=== PATIENT | female | born 1960 | race Caucasian/White ===

== ENCOUNTER → 2016-04-05 | Outpatient (REF) | payer MEDICARE, OTHER ==
[~2016-04-05] MED LIST: /PANT40TA OR; ALLE10TA2 PO; ASPI81TA85 PO; BUSP15TA47 PO; CALTRATE PO; CENTRUM SILVER PO; CRES5TAB OR; FOLI1TAB OR; LOVE0.6I2 SC; METOPROLOL TARTRATE PO; MICA80TA OR; MULTCHW13 PO; OMEG100011 PO; PERC7.5T8 OR; VERAPAMIL PO; VITA100037 PO; WARF5TAB66 PO; WARFARIN PO; ZOCO20TA PO; [UNRECOGNIZED DRUG - OTHER] PO
[2016-04-05 11:12] LABS: MEAN CORPUSCULAR HEMOGLOBIN 30.3 pg (27.0-33.0); MEAN CORPUSCULAR HGB CONC 33.9 g/dl (32.0-36.5); MEAN CORPUSCULAR VOLUME 89.4 fl (80.0-96.0); RED CELL DISTRIBUTION WIDTH 12.1 % (11.5-14.5)
[2016-04-05 11:29] LABS: ALBUMIN 3.7 GM/DL (3.2-5.2); ALBUMIN/GLOBULIN RATIO 1.19 (1.00-1.93); ALKALINE PHOSPHATASE 67 U/L (45-117); ALT/SGPT 30 U/L (12-78); ANION GAP 7 MEQ/L (8-16); AST/SGOT 26 U/L (15-37); BILIRUBIN,TOTAL 0.5 MG/DL (0.2-1.0); BLOOD UREA NITROGEN 26 MG/DL (7-18); CALCIUM LEVEL 9.2 MG/DL (8.5-10.1); CARBON DIOXIDE LEVEL 29 MEQ/L (21-32); CHLORIDE LEVEL 106 MEQ/L (98-107); CHOLESTEROL LEVEL 188 MG/DL (<200); CREATININE FOR GFR 1.01 MG/DL (0.55-1.02); GLOMERULAR FILTRATION RATE > 60.0 (>51); GLUCOSE, FASTING 102 MG/DL (70-105); SODIUM LEVEL 142 MEQ/L (136-145); TOTAL PROTEIN 6.8 GM/DL (6.4-8.2); TRIGLYCERIDES LEVEL 132 MG/DL (<150)
[2016-04-05 11:30] LABS: POTASSIUM SERUM 5.2 MEQ/L (3.5-5.1)
== END ==
LOC: M SFHCLERA 07:38
PROVIDERS: ATTEND Family Medicine
DX: I10 Essential (primary) hypertension (principal)

== ENCOUNTER 2016-08-07 09:59 | Emergency (ER) | payer MEDICARE, OTHER ==
[~2016-08-07] VITALS: Ht 165.1 cm; Wt 102.5 kg
[2016-08-07] MEDS ORDERED: METO-346 (10:20)
[2016-08-07 11:03] LABS: BASO % 0.8 % (0.0-1.0); EOS # 0.2 K/mm3 (0.0-0.50); EOS % 3.1 % (0.0-3.0); LARGE UNSTAINED CELL # 0.1 K/mm3 (0.0-0.4); LARGE UNSTAINED CELL % 1.6 % (0.0-4.0); LYMPH # 1.4 K/mm3 (1.5-4.5); LYMPH % 22.9 % (24.0-44.0); MEAN CORPUSCULAR HEMOGLOBIN 32.4 pg (27.0-33.0); MEAN CORPUSCULAR HGB CONC 35.5 g/dl (32.0-36.5); MEAN CORPUSCULAR VOLUME 91.3 fl (80.0-96.0); MONO # 0.3 K/mm3 (0.0-0.8); MONO % 5.4 % (0.0-5.0); NEUTROPHILS % 66.2 % (36.0-66.0); PLATELET COUNT, AUTOMATED 219 k/mm3 (150-450); RED CELL DISTRIBUTION WIDTH 12.4 % (11.5-14.5)
[2016-08-07 11:13] LABS: INR 3.46
[2016-08-07 11:51] LABS: ALBUMIN 3.5 GM/DL (3.2-5.2); ALKALINE PHOSPHATASE 71 U/L (45-117); ALT/SGPT 47 U/L (12-78); ANION GAP 9 MEQ/L (8-16); AST/SGOT 43 U/L (15-37); BILIRUBIN,DIRECT < 0.1 MG/DL (0.0-0.2); BILIRUBIN,TOTAL 0.5 MG/DL (0.2-1.0); BLOOD UREA NITROGEN 22 MG/DL (7-18); CALCIUM LEVEL 8.9 MG/DL (8.5-10.1); CARBON DIOXIDE LEVEL 26 MEQ/L (21-32); CHLORIDE LEVEL 109 MEQ/L (98-107); CREATININE FOR GFR 1.61 MG/DL (0.55-1.02); GLOMERULAR FILTRATION RATE 35.6 (>51); GLUCOSE, FASTING 102 MG/DL (70-105); POTASSIUM SERUM 4.6 MEQ/L (3.5-5.1); SODIUM LEVEL 144 MEQ/L (136-145)
[2016-08-07 12:01] VITALS: BP 141/88
== END 2016-08-07 12:22 | disposition home or self-care (01) ==
LOC: M ED 10:36
DX: N28.9 Disorder of kidney and ureter, unspecified (principal); I10 Essential (primary) hypertension; F41.9 Anxiety disorder, unspecified; Z86.73 Personal history of transient ischemic attack (TIA), and cerebral infarction without residual deficits; Z79.01 Long term (current) use of anticoagulants

== ENCOUNTER → 2016-08-21 | Outpatient (REF) | payer MEDICARE ==
[~2016-08-21] MED LIST changes: +METO-346; -MULTCHW13 PO; +MULTCHW14 PO; -VITA100037 PO; +VITA100067 PO
[2016-08-21 21:01] LABS: CALCIUM LEVEL 9.4 MG/DL (8.5-10.1); CREATININE FOR GFR 1.2 MG/DL (0.55-1.02); GLOMERULAR FILTRATION RATE 49.8 (>51); POTASSIUM SERUM 4.7 MEQ/L (3.5-5.1)
== END ==
LOC: M SFHCLERA 15:39
PROVIDERS: ATTEND Family Medicine
DX: N17.9 Acute kidney failure, unspecified (principal); Z79.82 Long term (current) use of aspirin; Z79.01 Long term (current) use of anticoagulants; Z79.899 Other long term (current) drug therapy
CPT/HCPCS: 80048; 81001; 87086; G0463

== ENCOUNTER → 2016-08-29 | Outpatient (REF) | payer MEDICARE ==
[2016-08-29 12:03] LABS: CALCIUM LEVEL 9.3 MG/DL (8.5-10.1); CREATININE FOR GFR 1.07 MG/DL (0.55-1.02); GLOMERULAR FILTRATION RATE 56.9 (>51); POTASSIUM SERUM 4.5 MEQ/L (3.5-5.1)
== END ==
LOC: M SFHCLERA 09:12
PROVIDERS: ATTEND Family Medicine
DX: N17.9 Acute kidney failure, unspecified (principal)
CPT/HCPCS: 80048; G0463

== ENCOUNTER → 2016-08-30 | Outpatient (REF) | payer MEDICARE ==
[2016-08-30 11:20] LABS: MEAN CORPUSCULAR HEMOGLOBIN 31.6 pg (27.0-33.0); MEAN CORPUSCULAR HGB CONC 34.9 g/dl (32.0-36.5); MEAN CORPUSCULAR VOLUME 90.4 fl (80.0-96.0); RED CELL DISTRIBUTION WIDTH 12.7 % (11.5-14.5); WHITE BLOOD COUNT 5.4 K/mm3 (4.0-10.0)
== END ==
LOC: M SFHCLERA 08:39
PROVIDERS: ATTEND Family Medicine
DX: N17.9 Acute kidney failure, unspecified (principal)

== ENCOUNTER → 2016-10-12 | Outpatient (CLI) | payer MEDICARE ==
--- NOTE | 2016-10-16 08:13 | REPMRS ---
Patient History The patient states she had a clinical breast exam in 10/2016. No known family history of cancer. Digital Woman Screen Mammo: October 12, 2016 - Exam #: [id number] Bilateral CC and MLO view(s) were taken. Technologist: Lenora Hernandez, Technologist Prior study comparison: November 01, 2014, digital bilateral screening mammo, performed at [facility]. August 11, 2013, digital woman screen mammo performed at [facility]. April 28, 2010, bilateral bilat screen digital mammo performed at [facility]. FINDINGS: There are scattered fibroglandular densities. There has been no change in the appearance of the mammogram from the prior studies. There is a mild amount of scattered fibroglandular density which is fairly symmetric. There is no interval development of dominant mass, architectural distortion, or clustered microcalcification suggestive of malignancy. ASSESSMENT: BI-RADS/ACR category 1 mammogram. Negative. Recommendation Routine screening mammogram in 1 year (for women over age 40). This mammogram was interpreted with the aid of an FDA-approved computer-aided dectection system. Electronically Signed By: Marshal Beltran MD 10/16/16 0812
== END ==
LOC: M WHC 14:12
PROVIDERS: ATTEND Nurse Practitioner Family
DX: Z12.31 Encounter for screening mammogram for malignant neoplasm of breast (principal); Z12.4 Encounter for screening for malignant neoplasm of cervix; Z12.11 Encounter for screening for malignant neoplasm of colon
CPT/HCPCS: 82270; G0101; G0202; G0463

== ENCOUNTER → 2016-10-31 | Outpatient (REF) | payer MEDICARE ==
[2016-10-31 12:26] LABS: CALCIUM LEVEL 9.7 MG/DL (8.5-10.1); CREATININE FOR GFR 1.19 MG/DL (0.55-1.02); GLOMERULAR FILTRATION RATE 50.3 (>51); POTASSIUM SERUM 4.9 MEQ/L (3.5-5.1)
== END ==
LOC: M SFHCLERA 08:52
PROVIDERS: ATTEND Family Medicine
DX: N17.9 Acute kidney failure, unspecified (principal)

== ENCOUNTER → 2017-01-16 | Outpatient (REF) | payer MEDICARE ==
[2017-01-16 16:40] LABS: INR 2.09
[2017-01-16 16:47] LABS: CALCIUM LEVEL 9.4 MG/DL (8.5-10.1); CREATININE FOR GFR 1.13 MG/DL (0.55-1.02); GLOMERULAR FILTRATION RATE 53.4 (>51); POTASSIUM SERUM 4.8 MEQ/L (3.5-5.1)
== END ==
LOC: M SFHCLERA 14:37
PROVIDERS: ATTEND Family Medicine
DX: N18.3 Chronic kidney disease, stage 3 (moderate) (principal); Z86.73 Personal history of transient ischemic attack (TIA), and cerebral infarction without residual deficits
CPT/HCPCS: 80048; 85610; G0463

== ENCOUNTER → 2017-03-06 | Outpatient (REF) | payer MEDICARE | LOC: M SFHCLERA 10:24 | DX: Z51.81 Encounter for therapeutic drug level monitoring (principal); Z79.01 Long term (current) use of anticoagulants; Z95.2 Presence of prosthetic heart valve; Z53.8 Procedure and treatment not carried out for other reasons ==

== ENCOUNTER → 2017-06-17 | Outpatient (REF) | payer MEDICARE ==
[2017-06-17 17:29] LABS: BASO % 0.6 % (0.0-1.0); EOS # 0.2 10^3/uL (0.0-0.50); EOS % 2.7 % (0.0-3.0); HEMATOCRIT 45.1 % (36.0-47.0); HEMOGLOBIN 15.6 g/dl (12.0-15.5); IMMATURE GRANULOCYTE % 0.2 % (0-3.0); LYMPH # 1.7 10^3/uL (1.5-4.5); LYMPH % 26.4 % (24.0-44.0); MEAN CORPUSCULAR HEMOGLOBIN 30.5 pg (27.0-33.0); MEAN CORPUSCULAR HGB CONC 34.6 g/dl (32.0-36.5); MEAN CORPUSCULAR VOLUME 88.1 fl (80.0-96.0); MONO # 0.5 10^3/uL (0.0-0.8); MONO % 7.5 % (0.0-5.0); NEUTROPHILS % 62.6 % (36.0-66.0); PLATELET COUNT, AUTOMATED 188 10^3/uL (150-450); RED BLOOD COUNT 5.12 10^6/uL (4.00-5.40); RED CELL DISTRIBUTION WIDTH 11.9 % (11.5-14.5); WHITE BLOOD COUNT 6.4 10^3/uL (4.0-10.0)
[2017-06-17 17:44] LABS: ESTIMATED AVERAGE GLUCOSE 117 MG/DL (60-110); HEMOGLOBIN A1c 5.7 %
[2017-06-17 17:49] LABS: ALBUMIN 3.8 GM/DL (3.2-5.2); ALBUMIN/GLOBULIN RATIO 1.12 (1.00-1.93); ALKALINE PHOSPHATASE 70 U/L (45-117); ALT/SGPT 40 U/L (12-78); ANION GAP 4 MEQ/L (8-16); AST/SGOT 38 U/L (7-37); BILIRUBIN,TOTAL 0.7 MG/DL (0.2-1.0); BLOOD UREA NITROGEN 21 MG/DL (7-18); CALCIUM LEVEL 9.2 MG/DL (8.5-10.1); CARBON DIOXIDE LEVEL 28 MEQ/L (21-32); CHLORIDE LEVEL 109 MEQ/L (98-107); CHOLESTEROL LEVEL 205 MG/DL (<200); CHOLESTEROL RISK RATIO 4.767 (<5); CREATININE FOR GFR 1.09 MG/DL (0.55-1.30); GLOMERULAR FILTRATION RATE 55.7 (>51); GLUCOSE, FASTING 93 MG/DL (70-100); HDL CHOLESTEROL 43 MG/DL (>40); LDL CHOLESTEROL 124.2 MG/DL (<100); NON-HDL-C 162 MG/DL; POTASSIUM SERUM 4.6 MEQ/L (3.5-5.1); SODIUM LEVEL 141 MEQ/L (136-145); TOTAL PROTEIN 7.2 GM/DL (6.4-8.2); TRIGLYCERIDES LEVEL 189 MG/DL (<150)
[2017-06-17 17:51] LABS: MALB URINE SIEMENS 68.5 MG/L; MAU/CREAT RATIO 62.2 MCG/MG (0.0-30.0)
== END ==
LOC: M SFHCLERA 10:59
DX: I10 Essential (primary) hypertension (principal); Z79.01 Long term (current) use of anticoagulants; Z79.82 Long term (current) use of aspirin; Z79.899 Other long term (current) drug therapy
CPT/HCPCS: 84443

== ENCOUNTER → 2017-11-14 | Outpatient (REF) | payer MEDICARE ==
[2017-11-14 11:45] LABS: INR 2.04; PROTHROMBIN TIME 23.4 SECONDS (12.1-14.4)
== END ==
LOC: M SFHCLERA 08:49
DX: Z79.01 Long term (current) use of anticoagulants (principal)
CPT/HCPCS: 85610

== ENCOUNTER → 2018-01-06 | Outpatient (REF) | payer MEDICARE ==
[2018-01-06 11:52] LABS: INR 2.25; PROTHROMBIN TIME 25.3 SECONDS (12.1-14.4)
== END ==
LOC: M SFHCLERA 08:30
DX: Z51.81 Encounter for therapeutic drug level monitoring (principal); Z79.01 Long term (current) use of anticoagulants
CPT/HCPCS: 85610

== ENCOUNTER → 2018-01-22 | Outpatient (REF) | payer MEDICARE ==
[2018-01-22 11:59] LABS: INR 2.09; PROTHROMBIN TIME 23.9 SECONDS (12.1-14.4)
== END ==
LOC: M SFHCLERA 07:57
DX: Z51.81 Encounter for therapeutic drug level monitoring (principal); Z79.01 Long term (current) use of anticoagulants
CPT/HCPCS: 85610

== ENCOUNTER → 2018-01-27 | Outpatient (REF) | payer MEDICARE ==
[2018-01-27 20:24] LABS: INR 2.15; PROTHROMBIN TIME 24.4 SECONDS (12.1-14.4)
== END ==
LOC: M SFHCLERA 16:26
PROVIDERS: ATTEND Family Medicine
DX: Z51.81 Encounter for therapeutic drug level monitoring (principal); Z79.01 Long term (current) use of anticoagulants

== ENCOUNTER → 2018-03-17 | Outpatient (REF) | payer MEDICARE ==
[2018-03-17 11:55] LABS: INR 2.49; PROTHROMBIN TIME 27.5 SECONDS (12.1-14.4)
== END ==
LOC: M SFHCLERA 08:44
PROVIDERS: ATTEND Family Medicine
DX: Z79.01 Long term (current) use of anticoagulants (principal)

== ENCOUNTER → 2018-03-24 | Outpatient (CLI) | payer MEDICARE ==
[2018-03-24 11:09] LABS: HEMATOCRIT 42.5 % (36.0-47.0); HEMOGLOBIN 14.4 g/dl (12.0-15.5); MEAN CORPUSCULAR HEMOGLOBIN 29.3 pg (27.0-33.0); MEAN CORPUSCULAR HGB CONC 33.9 g/dl (32.0-36.5); MEAN CORPUSCULAR VOLUME 86.6 fl (80.0-96.0); PLATELET COUNT, AUTOMATED 197 10^3/uL (150-450); RED BLOOD COUNT 4.91 10^6/uL (4.00-5.40); WHITE BLOOD COUNT 8.1 10^3/uL (4.0-10.0)
[2018-03-24 11:27] LABS: BLOOD UREA NITROGEN 22 MG/DL (7-18); CALCIUM LEVEL 8.9 MG/DL (8.5-10.1); CARBON DIOXIDE LEVEL 29 MEQ/L (21-32); CHLORIDE LEVEL 107 MEQ/L (98-107); GLOMERULAR FILTRATION RATE > 60.0 (>51); GLUCOSE, FASTING 85 MG/DL (70-100); NT-PRO BNP 371 PG/ML (<125); POTASSIUM SERUM 4.2 MEQ/L (3.5-5.1); SODIUM LEVEL 140 MEQ/L (136-145)
== END ==
LOC: M LAB 09:41
PROVIDERS: ATTEND Internal Medicine Cardiovascular Disease
DX: I10 Essential (primary) hypertension (principal); I05.9 Rheumatic mitral valve disease, unspecified; R06.02 Shortness of breath

== ENCOUNTER → 2018-04-17 | Outpatient (REF) | payer MEDICARE ==
[2018-04-17 17:37] LABS: INR 2.62; PROTHROMBIN TIME 28.6 SECONDS (12.1-14.4)
[2018-04-17 18:01] LABS: HEMOGLOBIN A1c 5.7 %
[2018-04-17 18:02] LABS: ALBUMIN 3.7 GM/DL (3.2-5.2); ALT/SGPT 36 U/L (12-78); BILIRUBIN,TOTAL 0.7 MG/DL (0.2-1.0); BLOOD UREA NITROGEN 22 MG/DL (7-18); CALCIUM LEVEL 8.5 MG/DL (8.5-10.1); CARBON DIOXIDE LEVEL 24 MEQ/L (21-32); CHLORIDE LEVEL 109 MEQ/L (98-107); CHOLESTEROL LEVEL 166 MG/DL (<200); CHOLESTEROL RISK RATIO 3.608 (<5); CREATININE FOR GFR 0.97 MG/DL (0.55-1.30); GLOMERULAR FILTRATION RATE > 60.0 (>51); GLUCOSE, FASTING 70 MG/DL (70-100); HDL CHOLESTEROL 46 MG/DL (>40); LDL CHOLESTEROL 87 MG/DL (<100); NON-HDL-C 120 MG/DL; POTASSIUM SERUM 4.8 MEQ/L (3.5-5.1); SODIUM LEVEL 142 MEQ/L (136-145); TRIGLYCERIDES LEVEL 163 MG/DL (<150)
== END ==
LOC: M SFHCLERA 11:45
PROVIDERS: ATTEND Family Medicine
DX: I10 Essential (primary) hypertension (principal); Z79.01 Long term (current) use of anticoagulants; Z23 Encounter for immunization
CPT/HCPCS: 80053; 80061; 83036; 85610; 90732; G0009; G0463

== ENCOUNTER → 2018-05-26 | Outpatient (REF) | payer MEDICARE ==
[~2018-05-26] MED LIST changes: -/PANT40TA OR; -ALLE10TA2 PO; +LORA-753 PO; +PROT1TAB2 OR
[2018-05-26 11:45] LABS: INR 2.36; PROTHROMBIN TIME 26.3 SECONDS (12.1-14.4)
== END ==
LOC: M SFHCLERA 07:42
PROVIDERS: ATTEND Family Medicine
DX: Z79.01 Long term (current) use of anticoagulants (principal)

== ENCOUNTER → 2018-07-17 | Outpatient (CLI) | payer MEDICARE ==
--- NOTE | 2018-07-17 15:26 | REPMRS ---
Patient History The patient states she had a clinical breast exam in 07/2018. Family history of colorectal cancer at age 50 or over in maternal uncle. 3D TOMOSYNTHESIS WAS PERFORMED. Digital Woman Screen Mammo: July 17, 2018 - Exam #: [id number] Bilateral CC and MLO view(s) were taken. Technologist: Yarely Borges, Technologist Prior study comparison: October 12, 2016, digital woman screen mammo performed at [facility]. November 01, 2014, digital bilateral screening mammo, performed at [facility]. FINDINGS: There are scattered fibroglandular densities. There has been no change in the appearance of the mammogram from the prior studies. There is a mild amount of residual fibroglandular tissue which is fairly symmetric. There is no interval development of dominant mass, architectural distortion, or clustered microcalcification suggestive of malignancy. Assessment: BI-RADS/ACR category 1 mammogram. Negative Mammogram. Recommendation Routine screening mammogram in 1 year (for women over age 40). This mammogram was interpreted with the aid of an FDA-approved computer-aided dectection system. Electronically Signed By: Edward Cruz MD 07/17/18 [id number]
== END ==
LOC: M WHC 13:43
PROVIDERS: ATTEND Family Medicine
DX: Z01.419 Encounter for gynecological examination (general) (routine) without abnormal findings (principal); Z12.31 Encounter for screening mammogram for malignant neoplasm of breast
CPT/HCPCS: 77063; 77067; G0101; G0123

== ENCOUNTER → 2018-07-17 | Outpatient (REF) | payer MEDICARE | LOC: M SFHCWAGY 14:39 | PROVIDERS: ATTEND Nurse Practitioner Family | DX: Z12.72 Encounter for screening for malignant neoplasm of vagina (principal); R87.615 Unsatisfactory cytologic smear of cervix ==

== ENCOUNTER → 2018-08-22 | Outpatient (REF) | payer MEDICARE ==
[2018-08-22 12:46] LABS: INR 2.63
== END ==
LOC: M SFHCLERA 10:28
PROVIDERS: ATTEND Family Medicine
DX: Z79.01 Long term (current) use of anticoagulants (principal)

== ENCOUNTER → 2018-10-08 | Outpatient (REF) | payer MEDICARE ==
[2018-10-08 16:54] LABS: INR 2.41; PROTHROMBIN TIME 26.1 SECONDS (11.8-14.0)
== END ==
LOC: M SFHCLERA 14:33
PROVIDERS: ATTEND Nurse Practitioner Family
DX: Z79.01 Long term (current) use of anticoagulants (principal)

== ENCOUNTER → 2019-01-02 | Outpatient (REF) | payer MEDICARE ==
[2019-01-02 17:08] LABS: INR 3.14; PROTHROMBIN TIME 32.2 SECONDS (11.8-14.0)
== END ==
LOC: M SFHCLERA 16:01
PROVIDERS: ATTEND Family Medicine
DX: Z51.81 Encounter for therapeutic drug level monitoring (principal); Z79.01 Long term (current) use of anticoagulants

== ENCOUNTER → 2019-03-12 | Outpatient (REF) | payer MEDICARE ==
[2019-03-12 12:30] LABS: BASO % 0.7 % (0.0-1.0); EOS # 0.2 10^3/uL (0.0-0.5); EOS % 4.2 % (0.0-3.0); HEMATOCRIT 41.4 % (36.0-47.0); HEMOGLOBIN 13.1 g/dl (12.0-15.5); LYMPH # 1.2 10^3/uL (1.5-5.0); LYMPH % 20.6 % (24.0-44.0); MEAN CORPUSCULAR HEMOGLOBIN 29.4 pg (27.0-33.0); MEAN CORPUSCULAR HGB CONC 31.6 g/dl (32.0-36.5); MONO # 0.4 10^3/uL (0.0-0.8); MONO % 7.4 % (0.0-5.0); NEUTROPHILS # 3.8 10^3/uL (1.5-8.5); NEUTROPHILS % 66.9 % (36.0-66.0); PLATELET COUNT, AUTOMATED 150 10^3/uL (150-450); RED BLOOD COUNT 4.45 10^6/uL (4.00-5.40); WHITE BLOOD COUNT 5.7 10^3/uL (4.0-10.0)
[2019-03-12 12:40] LABS: INR 2.33; PROTHROMBIN TIME 25.3 SECONDS (11.8-14.0)
[2019-03-12 13:02] LABS: CREATININE, URINE 60.3 MG/DL; MALB URINE SIEMENS 28.9 MG/L; MAU/CREAT RATIO 47.9 MCG/MG (0.0-30.0)
[2019-03-12 13:06] LABS: ALBUMIN 3.3 GM/DL (3.2-5.2); BILIRUBIN,TOTAL 0.8 MG/DL (0.2-1.0); CALCIUM LEVEL 8.6 MG/DL (8.5-10.1); CHOLESTEROL RISK RATIO 5.06 (<5); CREATININE FOR GFR 1.21 MG/DL (0.55-1.30); POTASSIUM SERUM 5.3 MEQ/L (3.5-5.1); THYROID STIMULATING HORMONE 4.16 uIU/ML (0.358-3.740); TOTAL PROTEIN 6.4 GM/DL (6.4-8.2)
[2019-03-12 14:05] LABS: HEMOGLOBIN A1c 5.7 %
== END ==
LOC: M SFHCLERA 08:11
PROVIDERS: ATTEND Family Medicine
DX: E78.2 Mixed hyperlipidemia (principal); I10 Essential (primary) hypertension; Z79.01 Long term (current) use of anticoagulants; Z79.899 Other long term (current) drug therapy; Z23 Encounter for immunization
CPT/HCPCS: 80053; 80061; 82043; 83036; 84443; 85025; 85610; 90682; G0008; G0463

== ENCOUNTER → 2019-03-24 | Outpatient (REF) | payer MEDICARE ==
[2019-03-24 20:32] LABS: INR 2.18; PROTHROMBIN TIME 24.1 SECONDS (11.8-14.0)
== END ==
LOC: M SFHCLERA 16:32
PROVIDERS: ATTEND Family Medicine
DX: Z79.01 Long term (current) use of anticoagulants (principal)
CPT/HCPCS: 85610; G0463

== ENCOUNTER → 2019-04-01 | Outpatient (REF) | payer MEDICARE ==
[2019-04-01 16:48] LABS: INR 1.62
[2019-04-01 16:51] LABS: CALCIUM LEVEL 9.2 MG/DL (8.5-10.1); CREATININE FOR GFR 1.04 MG/DL (0.55-1.30); GLOMERULAR FILTRATION RATE 58.4 (>51); POTASSIUM SERUM 4.8 MEQ/L (3.5-5.1); THYROID STIMULATING HORMONE 2.78 uIU/ML (0.358-3.740)
== END ==
LOC: M SFHCLERA 11:38
PROVIDERS: ATTEND Family Medicine
DX: Z79.01 Long term (current) use of anticoagulants (principal); I10 Essential (primary) hypertension

== ENCOUNTER → 2019-04-17 | Outpatient (REF) | payer MEDICARE ==
[2019-04-17 11:38] LABS: INR 1.77; PROTHROMBIN TIME 20.4 SECONDS (11.8-14.0)
== END ==
LOC: M SFHCLERA 07:55
PROVIDERS: ATTEND Family Medicine
DX: Z79.01 Long term (current) use of anticoagulants (principal)

== ENCOUNTER → 2019-05-04 | Outpatient (REF) | payer MEDICARE ==
[2019-05-04 12:04] LABS: INR 3.13; PROTHROMBIN TIME 32.1 SECONDS (11.8-14.0)
== END ==
LOC: M SFHCLERA 08:07
PROVIDERS: ATTEND Family Medicine
DX: Z79.01 Long term (current) use of anticoagulants (principal)

== ENCOUNTER → 2019-06-03 | Outpatient (REF) | payer MEDICARE ==
[2019-06-03 16:18] LABS: INR 4.31; PROTHROMBIN TIME 41.5 SECONDS (11.8-14.0)
== END ==
LOC: M SFHCPLAZ 09:49
PROVIDERS: ATTEND Family Medicine
DX: Z79.01 Long term (current) use of anticoagulants (principal)

== ENCOUNTER → 2019-06-05 | Outpatient (REF) | payer MEDICARE ==
[2019-06-05 11:44] LABS: INR 2.7; PROTHROMBIN TIME 28.5 SECONDS (11.8-14.0)
== END ==
LOC: M SFHCLERA 09:08
PROVIDERS: ATTEND Family Medicine
DX: Z79.01 Long term (current) use of anticoagulants (principal)

== ENCOUNTER 2019-06-11 08:46 | Emergency (ER) | payer MEDICARE ==
[~2019-06-11] VITALS: Ht 165.1 cm; Wt 98.8 kg
[2019-06-11] MEDS ORDERED: CETI5CHW PO (08:58)
[2019-06-11] MEDS ORDERED: METO1TAB87 PO (09:01)
[2019-06-11] MEDS ORDERED: LOSA50TA88 PO (09:01)
[2019-06-11 09:20] LABS: BASO % 0.2 % (0.0-1.0); EOS % 0.3 % (0.0-3.0); HEMATOCRIT 40.2 % (36.0-47.0); HEMOGLOBIN 13.1 g/dl (12.0-15.5); LYMPH # 1.2 10^3/uL (1.5-5.0); LYMPH % 10.4 % (24.0-44.0); MEAN CORPUSCULAR HEMOGLOBIN 28.8 pg (27.0-33.0); MEAN CORPUSCULAR HGB CONC 32.6 g/dl (32.0-36.5); MEAN CORPUSCULAR VOLUME 88.4 fl (80.0-96.0); MONO # 0.9 10^3/uL (0.0-0.8); MONO % 7.9 % (0.0-5.0); NEUTROPHILS # 9.2 10^3/uL (1.5-8.5); NEUTROPHILS % 80.8 % (36.0-66.0); PLATELET COUNT, AUTOMATED 193 10^3/uL (150-450); RED BLOOD COUNT 4.55 10^6/uL (4.00-5.40); WHITE BLOOD COUNT 11.4 10^3/uL (4.0-10.0)
[2019-06-11] MEDS ORDERED: ASPIRIN 81 MG CHEW TABLET PO ONE ×2 (09:30→09:45)
[2019-06-11 09:52] LABS: BLOOD UREA NITROGEN 37 MG/DL (7-18); CALCIUM LEVEL 9.5 MG/DL (8.5-10.1); CARBON DIOXIDE LEVEL 24 MEQ/L (21-32); CHLORIDE LEVEL 105 MEQ/L (98-107); CK-MB VALUE MASS 11.6 NG/ML (<3.6); CPK CREATINE PHOSPHOKINASE 362 U/L (26-192); CREATININE FOR GFR 1.42 MG/DL (0.55-1.30); GLOMERULAR FILTRATION RATE 40.7 (>51); GLUCOSE, FASTING 179 MG/DL (70-100); POTASSIUM SERUM 4.5 MEQ/L (3.5-5.1); SODIUM LEVEL 137 MEQ/L (136-145); TROPONIN I < 0.02 NG/ML (< 0.10)
--- NOTE | 2019-06-11 10:14 | REP ---
PORTABLE CHEST X-RAY: Single view. HISTORY: Syncope/near syncope. COMPARISON STUDY: June 30, 2012. FINDINGS: Monitoring electrodes overlie the chest. The patient is status post cardiac valve replacement. The heart is not felt to be enlarged. Pulmonary vasculature is not increased. Pleural angles are sharp. No significant bony abnormality. IMPRESSION: Status post cardiac valve replacement. Otherwise no active disease. Electronically Signed by Randy Beltran MD 06/11/2019 11:39 A
[2019-06-11] MEDS ORDERED: GI COCKTAIL 50ML BTL(HYOSCYAMINE/MAALOX/LIDOCAINE VISCOUS)(1:3:1) PO ONE (10:30)
[2019-06-11] MEDS ORDERED: WARF-18 PO (10:36)
[2019-06-11 10:43] LABS: INR 2.31; PROTHROMBIN TIME 25.2 SECONDS (11.8-14.0)
[2019-06-11] MEDS ORDERED: NS 1,000 ML IV ONE ×2 (11:00→14:00)
[2019-06-11 13:06] LABS: CK-MB VALUE MASS 15.4 NG/ML (<3.6); CPK CREATINE PHOSPHOKINASE 559 U/L (26-192); MB/CK RELATIVE INDEX 2.75 (< OR =4); TROPONIN I < 0.02 NG/ML (< 0.10)
[2019-06-11] MEDS ORDERED: ACETAMINOPHEN 500 MG TAB PO ONE (14:00)
[2019-06-11] MEDS ORDERED: ISOVUE-370 76% 100ML VIAL As Ordered ONE (14:06)
--- NOTE | 2019-06-11 16:07 | REP ---
CT ANGIOGRAM OF THE CHEST: TECHNIQUE: Axial contrast enhanced images from the thoracic inlet to the upper abdomen using 100 mL Isovue-370 intravenous contrast material with multiplanar reformations. There is no CT evidence of pulmonary embolism. There is no thoracic aortic aneurysm or dissection. The heart is not enlarged. There is no pleural or pericardial effusion. There is no mediastinal, hilar or chest wall lymphadenopathy. No infiltrate is seen in either lung. There is mild scattered interstitial fibrotic change. There is a 3 mm nodular density laterally in the right middle lobe on image 49, a 2 mm nodular density in the right posterior costophrenic sulcus on image 70 and a 2 mm nodular density in the left upper lobe on image 11. These nodular densities are of doubtful significance. There are degenerative changes of the spine. In the upper abdomen, note is made of a large mass in the left kidney superiorly, it measures approximately 8 mm in diameter. This is suspicious for renal cell carcinoma. IMPRESSION: No CT evidence of pulmonary embolism or aortic dissection. No acute infiltrate in the lungs. Three tiny nodular densities seen as discussed above 2-3 mm in diameter, of doubtful significance. In the visualized portions of the upper abdomen, there is a large heterogeneously enhancing mass of the upper pole of the left kidney approximately 8 cm in diameter. This is suspicious for renal cell carcinoma. Electronically Signed by Edward Cruz MD 06/11/2019 07:04 P
[2019-06-11 16:30] VITALS: BP 121/56
--- NOTE | 2019-06-11 17:56 | REP ---
REASON: Followup finding from CT of the chest obtained earlier today, which was performed after the administration of intravenous contrast at 2:30 p.m. No additional intravenous contrast was administered for this exam. No oral bowel preparatory contrast was administered. This decreases the exam sensitivity. For description of the lung bases, see CT chest report obtained earlier today. Limited evaluation of the solid intra-abdominal organs and gallbladder shows no gross abnormalities. Limited evaluation of the pancreas, right adrenal gland, and right kidney shows no gross abnormalities. There is a large left renal mass which measures approximately 8 x 5.8 x 5.9 cm and showing some residual contrast enhancement. There is abnormal perinephric stranding. There is an additional, much smaller left renal mass seen arising from the inferior pole measuring 2.4 cm. This has much higher than water density Hounsfield unit readings and may be enhancing as well. There are small para-aortic lymph nodes. The intra-abdominal and intrapelvic bowel loops and their mesenteries are within normal limits. There is no evidence of free fluid or free air in the abdomen or pelvis. There is no evidence of a pelvic mass or adenopathy. Bone window technique throughout the exam shows spinal degenerative changes. IMPRESSION: Two left renal masses, as described above. There is some left perinephric stranding which might indicate hemorrhage within the solid-appearing mass. Consider further evaluation with pre- and post-gadolinium enhanced MRI for possible vascular extension which is not appreciated on today's exam. Electronically Signed by Angel Frederick DO 06/12/2019 09:25 A
--- NOTE | 2019-06-12 01:50 | ECGEPIP ---
[facility] - ED Test Date: 2019-06-11 Pat Name: RICHARD RANDALL Department: Room: - Gender: Female Shirt Operator: malcolm : 1960 Requested By: SMOOTH MAR Order Number: [id number] Reading MD: Josue Arias Measurements Intervals [place] Rate: 71 P: 51 MN: 169 QRS: -8 QRSD: 132 T: 15 QT: 399 QTc: 434 Interpretive Statements SINUS RHYTHM RIGHT BUNDLE BRANCH BLOCK NONSPECIFIC T WAVE ABNORMALITIES NO PRIORS FOR COMPARISON Electronically Signed on 06-12-2019 1:50:10 EDT by Josue Arias
--- NOTE | 2019-06-12 01:55 | ECGEPIP ---
[facility] - ED Test Date: 2019-06-11 Pat Name: RICHARD RANDALL Department: Room: - Gender: Female [employer]: : 1960 Requested By: SMOOTH MAR Order Number: [id number] Reading MD: Josue Arias Measurements Intervals [place] Rate: 79 P: 47 VA: 168 QRS: -1 QRSD: 132 T: 18 QT: 385 QTc: 442 Interpretive Statements SINUS RHYTHM RIGHT BUNDLE BRANCH BLOCK NONSPECIFIC T WAVE ABNORMALITIES SIMILAR TO PRIOR ON SAME DATE Electronically Signed on 06-12-2019 1:55:06 EDT by Josue Arias
[2019-06-24] MEDS ORDERED: MULT-90 PO (11:03)
[2019-06-24] MEDS ORDERED: COUM1TAB17 PO (11:03)
[2019-06-24] MEDS ORDERED: ACET-683 PO (11:03)
[2019-06-24] MEDS ORDERED: FISH1000 PO (11:03)
[2019-06-24] MEDS ORDERED: ASPI81TA85 PO (11:03)
[2019-06-24] MEDS ORDERED: META28.32 PO (11:08)
== END 2019-06-11 17:13 | disposition home or self-care (01) ==
LOC: M ED 08:46
DX: R55 Syncope and collapse (principal); R07.89 Other chest pain; N28.89 Other specified disorders of kidney and ureter; Z11.59 Encounter for screening for other viral diseases; R94.31 Abnormal electrocardiogram [ECG] [EKG]; I10 Essential (primary) hypertension; K21.9 Gastro-esophageal reflux disease without esophagitis; E78.5 Hyperlipidemia, unspecified; F41.9 Anxiety disorder, unspecified; Z86.73 Personal history of transient ischemic attack (TIA), and cerebral infarction without residual deficits; Z95.2 Presence of prosthetic heart valve; Z79.899 Other long term (current) drug therapy; Z79.01 Long term (current) use of anticoagulants
CPT/HCPCS: 36415; 71045; 71275; 74176; 80048; 81001; 82550; 82553; 84443; 84484; 85025; 85610; 87486; 87581; 87633; 87798; 93005; 93041; 94760; 96360; 96361; 99285; Q9967; U0002

== ENCOUNTER → 2019-06-17 | Outpatient (CLI) | payer MEDICARE ==
[~2019-06-17] MED LIST changes: +ACET-683 PO; +CETI5CHW PO; +COUM1TAB17 PO; +FISH1000 PO; +LOSA50TA88 PO; +META28.32 PO; +METO1TAB87 PO; +MULT-90 PO; +WARF-18 PO
[2019-06-17 15:25] LABS: HEMOGLOBIN 12.4 g/dl (12.0-15.5); MEAN CORPUSCULAR HEMOGLOBIN 29.7 pg (27.0-33.0); MEAN CORPUSCULAR HGB CONC 33.5 g/dl (32.0-36.5); MEAN CORPUSCULAR VOLUME 88.5 fl (80.0-96.0); PLATELET COUNT, AUTOMATED 258 10^3/uL (150-450); RED BLOOD COUNT 4.18 10^6/uL (4.00-5.40); WHITE BLOOD COUNT 5.9 10^3/uL (4.0-10.0)
[2019-06-17 15:27] LABS: CREATININE FOR GFR 1.16 MG/DL (0.55-1.30); GLOMERULAR FILTRATION RATE 51.4 (>51)
[2019-06-17 15:40] LABS: INR 4.63
[2019-06-17 17:50] LABS: PARTIAL THROMBOPLASTIN TIME 98.8 SECONDS (25.0-38.4)
== END ==
LOC: M LAB 14:30
PROVIDERS: ATTEND Nurse Practitioner Women's Health
DX: Z01.818 Encounter for other preprocedural examination (principal); N28.89 Other specified disorders of kidney and ureter

== ENCOUNTER → 2019-06-18 | Outpatient (CLI) | payer MEDICARE ==
[~2019-06-18] MED LIST changes: +PROHANCE 279.3MG/ML 15ML VIAL As Ordered ONE; +PROHANCE 279.3MG/ML 5ML VIAL As Ordered ONE
== END ==
LOC: M RAD 08:16
PROVIDERS: ATTEND Nurse Practitioner Women's Health
DX: N28.89 Other specified disorders of kidney and ureter (principal)
CPT/HCPCS: A9576 ×2

== ENCOUNTER 2019-07-01 13:50 | Inpatient (IN) | payer MEDICARE ==
[~2019-07-01] VITALS: Ht 162.6 cm; Wt 101.7 kg
[~2019-07-01 13:50] MED LIST changes: -PROHANCE 279.3MG/ML 15ML VIAL As Ordered ONE; -PROHANCE 279.3MG/ML 5ML VIAL As Ordered ONE
[2019-07-14] VITALS (10 sets, daily range): BP systolic 136–162; BP diastolic 70–83
[2019-07-14] MEDS ORDERED: ceFAZolin SOD 2 GM in IV 1 EA IV ONE (07:00)
[2019-07-14] MEDS ORDERED: LR 1,000 ML IV ONE (07:00)
[2019-07-14] MEDS ORDERED: ENOX100I3 (07:05)
[2019-07-14 07:26] LABS: INR 2.11; PROTHROMBIN TIME 23.4 SECONDS (11.8-14.0)
[2019-07-14] MEDS ORDERED: dexameTHASONE 4 MG/ML 1ML VIAL (J1100 PER 1MG) As Ordered ONE (07:58)
[2019-07-14] MEDS ORDERED: fentaNYL 250 MCG/5 ML INJECTION (J3010) As Ordered ONE (07:58)
[2019-07-14] MEDS ORDERED: ROCURONIUM BROMIDE 50 MG/5 ML VIAL As Ordered ONE ×3 (07:58→20:47)
[2019-07-14] MEDS ORDERED: propofoL 200 MG/20 ML VIAL As Ordered ONE (07:58)
[2019-07-14] MEDS ORDERED: LIDOCAINE 2% 100MG/5ML SDV (FOR ANES.) As Ordered ONE (07:58)
[2019-07-14] MEDS ORDERED: MIDAZOLAM INJ 2MG/2ML VIAL (J2250 PER 1MG) As Ordered ONE (07:59)
[2019-07-14] MEDS ORDERED: LACRILUBE (AKWA TEARS) OPHTH OINT 3.5 GM As Ordered ONE (08:00)
[2019-07-14] MEDS ORDERED: BUPIVACAINE HCL 0.25% 30ML VIAL As Ordered ONE ×2 (08:10→15:09)
[2019-07-14] MEDS ORDERED: LIDOCAINE 1% SDV 30ML VIAL As Ordered ONE ×2 (08:10→15:09)
[2019-07-14] MEDS ORDERED: ACETAMINOPHEN TAB 650MG DOSE (2X325MG) PO PRN (08:30)
[2019-07-14] MEDS ORDERED: ONDANSETRON 4MG/2ML VIAL IV PRN ×2 (08:30→23:00)
[2019-07-14] MEDS ORDERED: MORPHINE 2 MG/ML 1ML VIAL (J2270) IV PRN (08:30)
--- NOTE | 2019-07-14 08:54 | SMCUROLCON ---
Urology Consultation General Date of Consultation 07/14/19 Reason For Consultation This patient is seen for Left Renal Mass. History of Present Illness This is a 58 y/o F w/ a PMH significant for HL, anxiety, mitral valve disease s/p mechanical heart valve in 2010 (on fpc anticoagulation), and CVD (s/p 8 strokes), presenting to the hospital for a L robotic radical nephrectomy. Preop imaging demonstrates 2 enhancing and heterogeneous L renal masses, w/ one measuring 7.5cm and the other 2.5cm. Both are suspicious for RCC. She has been off her coumadin for 3 days and has been taking lovenox SQ the last 2 days w/ the last dose yesterday. Past Medical History Medical History see [facility] Surgical Hstory appendectomy [facility] 11/2010 heart valve replacement 2010 Medications Current Medications Current Medications Medications (Trade) Dose Ordered Sig/Dimple Route PRN Reason Start Time Stop Time Status Last Admin Dose Admin Acetaminophen (Tylenol Tab) 650 mg Q4HP PRN PO MILD PAIN or TEMP > 101 07/14/19 08:30 Docusate Sodium (Colace) 100 mg BID PO 07/14/19 21:00 Morphine Sulfate (Morphine Sulfate Inj) 2 mg Q3HP PRN IV SEVERE PAIN (PS 8-10) 07/14/19 08:30 Ondansetron HCl (ZOFRAN INJection) 4 mg Q6HP PRN IV NAUSEA OR VOMITING 07/14/19 08:30 Oxycodone/ Acetaminophen (Percocet 5mg/ 325mg Tablet) 1 tab Q4H PRN PO MILD/MODERATE PAIN (PS 1-7) 07/14/19 08:30 Oxycodone/ Acetaminophen (Percocet 5mg/ 325mg Tablet) 2 tab Q4HP PRN PO MODERATE/SEVERE PAIN (PS 5-10) 07/14/19 08:30 Sodium Chloride 1,000 ml @ 30 mls/hr Q24H IV 07/14/19 08:19 Allergies Allergies: Coded Allergies: No Known Allergies (Unverified , 06/11/19) Review of Systems Constitutional: Denies: Fever, Chills, Sweats, Weakness, Malaise Skin: Denies: Rash, Lesions, Breakdown, Nail Changes Pulmonary: Denies: Dyspnea, Cough Cardiovascular: Denies Chest Pain, Denies Palpitations Gastrointestinal: Denies: Nausea, Vomiting, Abdominal Pain Genitourinary: Denies: Dysuria, Frequency Musculoskeletal: Denies: Neck Pain, Back Pain Physical Examination General Exam: Alert, Cooperative Chest Exam: Normal air movement Heart Exam: Rate Normal Abdomen Exam: Soft Skin Exam: Nl turgor and temperature Neuro Exam: Normal Speech Psych Exam: Mood NL Vital Signs/I&O Vital Signs Date Time Temp Pulse Resp B/P (MAP) Pulse Ox O2 Delivery O2 Flow Rate FiO2 07/14/19 07:09 97.6 20 138/65 (89) 96 Room Air Laboratory Data 24H Labs Laboratory Tests 2 07/14/19 06:53: Prothrombin Time 23.4H, Prothromb Time International Ratio 2.11 Assessment This is a 58 y/o F w/ a mechanical heart valve and 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 Her INR this morning was 2.1 despite being on coumadin for 3 days. We will have to hold on surgery until her INR comes down more, ideally around 1.5. Plan - hold on surgery for now - hospitalist service consulted on guidance to help safely bring her INR down closer to 1.5 - assuming this can be done, will plan on surgery later today - postop, patient can resume coumadin this evening w/ plan for heparin drip to start tomorrow until INR is therapeutic again (based on preop recommendations from patient's stranding supervisor) - JENNIFER HALL MD Jul 14, 2019 08:54
[2019-07-14] MEDS ORDERED: NS 1,000 ML IV SCH (09:08)
[2019-07-14 09:14] LABS: PARTIAL THROMBOPLASTIN TIME 89.1 SECONDS (25.0-38.4)
[2019-07-14] MEDS: PERCOCET 5MG/325MG TAB PO PRN (09:25)
[2019-07-14] MEDS: NS 1,000 ML IV SCH (09:26)
--- NOTE | 2019-07-14 13:18 | CR.PDOC ---
General Date of Consultation: Jul 14, 2019 Consultation REASON FOR CONSULTATION/CHIEF COMPLAINT: Elevated INR not within range for surgery HISTORY OF PRESENT ILLNESS: Patient is a 58 yo female with PMH of anticardiolipin syndrome and CVAX8 who was scheduled for left nephrectomy today for left kidney mass and hospital team was consulted because her INR is not within range for surgery. INR =4.63 on June 17, 2019. She held Coumadin with last dose on 07/08/2019 and her INR today is 2.1. Lovenox BID started on 07/11/2019 not today as directed. Pt usually take Coumadin 7.5mg and Saturday and 5mg rest of week. Pt reported she started lovenox since July 10, 2019. She reported that she does not have spontaneous bleeding or hematoma, but have some mild ecchymosis at the IV site. Pt reported subjective fever and chills for weeks as well as nausea without vomiting. Reported left flank pain. Denies chest pain, palpitation, or dyspnea. ALLERGIES: Please see below. HOME MEDICATIONS: Please see below. PAST MEDICAL HISTORY: 1. 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 Anticardiolipin syndrome. 3. HTN 4. Appendicitis? 5. Hyperlipidemia 6. Unspecified mitral valve disease 7. Anxiety 8. Former tobacco user 9. Rectocele 10. Cystocele 11. GERD 12. residential use of anticoagulant 13. Tyrer Cuzick Score 8.23 % 14. Prior A. fib 15. Diverticulosis PAST SURGICAL HISTORY: 1. Hysterectomy in 2010 2. Mitral valve mechanical valve replacement in 2010 3. Appendectomy in childhood 4. Laparoscopically assisted vaginal hysterectomy 11/2010 5. Bilateral tubal ligation 6. D&C hysteroscopy 06/2010 7. Colonoscopy 2016 SOCIAL HISTORY: Tobacco use:Denies ETOH: Denies Illicit drug use: Denies REVIEW OF SYSTEMS: CONSTITUTIONAL: Pos for chills and subjective feverX wks HEENT: Denies cough CARDIOVASCULAR: Denies chest pain or palpitations RESPIRATORY: Denies dyspnea GENITOURINARY: Pos for urination. Denies hematuria, urgency, or frequency GASTROINTESTINAL: Pos for diarrhea without melena/hematochezia SKIN: Ecchymosis PHYSICAL EXAMINATION: VITAL SIGNS: Please see below. GENERAL APPEARANCE: Alert and awake, in mild distress HEENT: Head normocephalic, atraumatic, b/l pupil equal and round RESPIRATORY: CTA b/l, no rales, wheezing, or rhonchi CARDIOVASCULAR: Murmur aus throughout in all 4 precordial regions. ABDOMEN: Soft, no guarding. EXTREMITIES: No Analia's sign b/l. NEUROLOGICAL: Memory and cognitive function grossly stable. PSYCHIATRIC: Mildly anxious BACK: Reported pos CVA tenderness on left LABORATORY DATA: Please see below. ASSESSMENT/PLAN: Pt is a 58 yo female with PMH of CVAX8, anticardiolipin, and mechanical mitral valve replacement planned for left nephrectomy for left renal mass today with hospitalist team consulted as INR is supratherapeutic for surgery. 1. Supratherapeutic INR for surgery. Pt's INR was 2.1 after withholding Cou madin since 07/08/2019. I obtained the blood product consent form. Will give pt FFP with goal INR<1.5 for left nephrectomy this afternoon around 5PM. PT/INR will be drawn after 2nd unit of FFP is given. 2 more units of FFP were ordered for patient if further INR reversal is needed. 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 Camp [phone] in [place] and he is ok with INR reversal with FFP. 2. Left renal mass. 07/09/2019 abd MRI showed large solid heterogeneously enhancing renal mass in upper pole left kidney with smaller mass in lower pole left kidney, suspected renal cell carcinoma. Urology following. Plan for left nephrectomy if INR within range goal <1.5. Zofran and pain meds PRN. IV LR as pt is currently NPO for procedure. Vitals roughly stable 3. S/P mechanical mitral valve replacement. Cont to hold pt's coumadin at this time as pt planned for nephrectomy this afternoon. Plan to resume coumadin after procedure 4. HTN. Hold metoprolol and losartan as pt currently NPO for procedure. Vitals roughly stable. Cont vital signs. Resume Aspirin after procedure 5. Hyperlipidemia. Resume home med Simvastatin and Aspirin after procedure 6. Anxiety. Resume home med Buspirone after procedure DISPO: plan left nephrectomy for left renal mass this afternoon if INR<1.5 with FFP Attending attestation: I evaluated and examined the patient in person; I discussed the care with Resident in detail and agree with the plan above. Vital Signs/I&O Vital Signs Date Time Temp Pulse Resp B/P (MAP) Pulse Ox O2 Delivery O2 Flow Rate FiO2 07/14/19 13:00 98.6 71 16 142/74 98 07/14/19 12:20 Room Air Laboratory Data Labs 24H Laboratory Tests 2 07/14/19 06:53: Prothrombin Time 23.4H, Prothromb Time International Ratio 2.11, Activated Partial Thromboplast Time 89.1H Allergies Coded Allergies: No Known Allergies (Unverified , 06/11/19) Home Medications Scheduled Buspirone HCl (Buspirone HCl) 15 Mg Tab, 15 MG PO BID, (Reported) Cetirizine HCl (Cetirizine HCl) 5 Mg Tab.chew, 1 TAB PO DAILY for allergy symptoms for 30 Days, #30 (Reported) Metoprolol Tartrate (Metoprolol Tartrate) 25 Mg Tablet, 25 MG PO BID, (Reported) Multivitamin (Multivitamin) 1 Each Tablet, 1 EACH PO DAILY, (Reported) Psyllium Husk (with Sugar) (Metamucil Powder) 575 Gm Powder, 1 PKT PO DAILY, (Reported) Simvastatin (Zocor) 20 Mg Tab, 20 MG PO DAILY, (Reported) Warfarin Sodium (Warfarin Sodium) 2.5 Mg Tablet, 2.5 MG PO 2XW, (Reported) tuesdays and fridays for a total dose of 7.5mg Warfarin Sodium (Coumadin) 5 Mg Tablet, 5 MG PO DAILY, (Reported) Scheduled PRN Acetaminophen (Acetaminophen) 500 Mg Tablet, 500 MG PO Q6HP PRN for PAIN, (Reported) Oxycodone/Acetaminophen (Oxycodone-Acetaminophen 5-325) 1 Each Tablet, 1 TAB PO Q6HP PRN for MODERATE/SEVERE PAIN (PS 5-10), #20 GME ATTESTATION GME ATTESTATION My faculty preceptor for this patient encounter was physically present during the encounter and was fully available. All aspects of the patient interview, examination, medical decision making process, and medical care plan development were reviewed and approved by the faculty preceptor. The faculty preceptor is aware and concurs with the plan as stated in the body of this note and will attest to such by his/her cosignature. STAR FOSS DO Jul 14, 2019 13:18 ADE MUELLER MD Jul 20, 2019 08:18
[2019-07-14 14:54] LABS: INR 1.67; PROTHROMBIN TIME 19.4 SECONDS (11.8-14.0)
[2019-07-14] MEDS ORDERED: PILL CUTTER 1 EACH XX PRN (16:30)
[2019-07-14] MEDS ORDERED: ceFAZolin 2 GM/D5W 50 ML IV BAG (J0690 PER 500MG) As Ordered ONE ×2 (16:58→20:53)
[2019-07-14] MEDS ORDERED: ACETAMINOPHEN 1000MG 100ML IV BTL (OFIRMEV) (J0131 PER 10MG) As Ordered ONE (17:39)
[2019-07-14] MEDS ORDERED: SUGAMMADEX SODIUM 500 MG/5 ML VIAL (BRIDION) As Ordered ONE (17:39)
[2019-07-14] MEDS ORDERED: ONDANSETRON 4MG/2ML VIAL As Ordered ONE ×2 (17:39→23:13)
[2019-07-14] MEDS ORDERED: PHENYLephrine HCL 500 MCG/5 ML (100MCG/ML) SYRINGE (J2370) As Ordered ONE ×2 (19:18→21:14)
[2019-07-14] MEDS ORDERED: ePHEDrine SULFATE 25 MG/5 ML(5MG/ML) SYRINGE As Ordered ONE (19:18)
[2019-07-14] MEDS ORDERED: HYDROmorphone HCL 2 MG/ML 1ML VIAL (J1170) As Ordered ONE (20:10)
[2019-07-14] MEDS: DOCUSATE SODIUM 100 MG CAP PO SCH (21:00)
--- NOTE | 2019-07-14 22:40 | ROOPDOC ---
[facility] Report Of Operation Report of Operation DATE OF PROCEDURE: 07/14/19 PREPROCEDURE DIAGNOSIS: Left Renal Neoplasm. POSTPROCEDURE DIAGNOSIS: Left Renal Neoplasm. PROCEDURE: Left robotic-assisted laparoscopic radical nephrectomy (adrenal- sparing). SURGEON: Jennifer Ratliff MD DISABILITY ATTORNEY: Shelby Austin ANESTHESIA: General OPERATIVE INDICATIONS: This is a 58-year-old female with 2 enhancing and heterogeneous left renal masses, with one measuring 7.5cm and the other measuring 2.5cm. Both of which were concerning for renal cell carcinoma. It was recommended that she undergo the above procedure for treatment. DESCRIPTION OF PROCEDURE: The patient was brought to the operating room where general anesthesia was induced. Prophylactic antibiotics were infused. A Harris catheter was placed under sterile conditions. Next, the patient was placed in the right lateral decubitus position. All pressure points were appropriately padded and an axillary roll was placed. We then secured the patient to the table with tape. Her abdomen was then prepped and draped in the usual sterile fashion. Next, an 8mm incision was made in line with the 11th rib along the lateral border of the rectus. Pneumoperitoneum was achieved with a Veress needle. Next, an 8mm port was placed for the camera. At this point, the left robotic port was placed off the costal margin. Two right hand robotic ports were then placed with one between the anterior superior iliac spine and the hip and the other one just caudal to the camera port. The one just caudal to the camera port was a 12mm robotic port. Last the 15 mm customer support assistant port was placed inferior and medial to the camera port. The robot was then docked. Attachments between the spleen and the Gerota's fascia were then released. The left colon was then mobilized medially. At this point, after mobilizing the left colon completely, we then developed a plane onto the psoas muscle off the lower pole of the kidney. The left gonadal vein was identified and was carried cephalad until the left renal vein was encountered. Behing the vein, 2 renal arteries were found. Both were carefully dissected and ligated with 3 Weck clips and then transected in between, leaving 2 Weck clips on the stay side. The renal vein was then carefully dissected. It was then ligated with a robotic vascular load stapler and transected. The kidney was then mobilized on all sides. The adrenal gland was dissected off and spared. Of note the superior and lateral aspects of Gerota's fascia were hardened and more difficult to dissect from the abdominal wall than normal. The ureter was then ligated with Weck clips and transected in between. The kidney was then completely free. At this point, we checked for hemostasis and hemostasis appeared excellent. Antonino and Tisseel hemostatic agents were then applied over the hilum and adrenal gland. We then placed the left kidney in a large EndoCatch bag. This bag was closed and then left for future retrieval. We then undocked the robot and a Alexander fascial closure device was utilized to place a 0-vicryl suture through the fascia of the 15mm port site. We then extended the incision of the 12mm right hand robotic port site to extract the specimen. We then dissected down through the musculofascial layers and extended the fascia. The muscle was bluntly spread, and we then extracted the specimen through this incision. Once that was done, we checked for hemostasis through the extraction incision and it appeared excellent. The fascia of this incision was then closed with a running #0 Vicryl suture. At this point, the abdomen was then reinsufflated. We looked at the extraction incision, and there was no active bleeding and no abdominal contents were caught within the suture. Once this was done, all the remaining ports were removed and there was no bleeding. We then tied down the #0 Vicryl suture in the 15mm port site. Once this was done, all wounds were thoroughly irrigated. The subcutaneous fat of the extraction incision was then closed with interrupted #3-0 Vicryl sutures. We then closed the skin of all incisions using subcuticular #4-0 Monocryl suture. Local anesthetic was then applied and then Dermabond was applied and marked the conclusion of the procedure. The patient was then taken out of the right lateral decubitus position, awakened from anesthesia and transported to the recovery room in stable condition. ESTIMATED BLOOD LOSS: 100mL. COMPLICATIONS: None. SPECIMENS: Left kidney. PLAN: The patient will be admitted to the hospital postoperatively for monitoring. JENNIFER RATLIFF MD Jul 14, 2019 22:40
[2019-07-14 22:48] LABS: HEMATOCRIT 32.4 % (36.0-47.0); HEMOGLOBIN 10.5 g/dl (12.0-15.5); MEAN CORPUSCULAR HEMOGLOBIN 27.8 pg (27.0-33.0); MEAN CORPUSCULAR HGB CONC 32.4 g/dl (32.0-36.5); MEAN CORPUSCULAR VOLUME 85.7 fl (80.0-96.0); PLATELET COUNT, AUTOMATED 129 10^3/uL (150-450); RED BLOOD COUNT 3.78 10^6/uL (4.00-5.40)
[2019-07-14] MEDS ORDERED: LR 1,000 ML IV SCH (23:00)
[2019-07-14] MEDS ORDERED: fentaNYL 100 MCG/2 ML INJECTION (J3010) IV PRN (23:00)
[2019-07-14] MEDS ORDERED: oxyCODONE 5MG TAB PO PRN (23:00)
[2019-07-14] MEDS ORDERED: oxyCODONE 5MG TAB As Ordered ONE (23:14)
[2019-07-14 23:19] LABS: CALCIUM LEVEL 8.8 MG/DL (8.5-10.1); CREATININE FOR GFR 1.98 MG/DL (0.55-1.30); GLOMERULAR FILTRATION RATE 27.8 (>51); POTASSIUM SERUM 5.1 MEQ/L (3.5-5.1)
[2019-07-14] MEDS: METOPROLOL TART 25 MG TABLET PO SCH (23:58)
[2019-07-14] MEDS: CETIRIZINE (ZyrTEC) 10 MG TAB PO SCH (23:58)
[2019-07-14] MEDS: busPIRone 5 MG TAB PO SCH (23:59)
[2019-07-14] MEDS: SIMVASTATIN 20 MG TAB PO SCH (23:59)
[2019-07-15] VITALS (11 sets, daily range): BP systolic 115–160; BP diastolic 58–86
[2019-07-15] MEDS: PERCOCET 5MG/325MG TAB PO PRN ×4 (02:36→22:18)
[2019-07-15 06:01] LABS: HEMATOCRIT 30.1 % (36.0-47.0); HEMOGLOBIN 9.8 g/dl (12.0-15.5); MEAN CORPUSCULAR HEMOGLOBIN 28.2 pg (27.0-33.0); MEAN CORPUSCULAR HGB CONC 32.6 g/dl (32.0-36.5); MEAN CORPUSCULAR VOLUME 86.5 fl (80.0-96.0); PLATELET COUNT, AUTOMATED 133 10^3/uL (150-450); RED BLOOD COUNT 3.48 10^6/uL (4.00-5.40); WHITE BLOOD COUNT 6.3 10^3/uL (4.0-10.0)
[2019-07-15 06:10] LABS: INR 1.77; PROTHROMBIN TIME 20.4 SECONDS (11.8-14.0)
[2019-07-15 06:34] LABS: CALCIUM LEVEL 8.3 MG/DL (8.5-10.1); CREATININE FOR GFR 2.19 MG/DL (0.55-1.30); GLOMERULAR FILTRATION RATE 24.7 (>51); POTASSIUM SERUM 5.5 MEQ/L (3.5-5.1)
--- NOTE | 2019-07-15 07:19 | IPNPDOC ---
Date Seen The patient was seen on 07/15/19. Progress Note SUBJECTIVE: Patient is a 58-year-old white female with left renal mass s/p left nephrectomy. She reported some nausea but no vomiting. Denies any fever, chills. She reported pain in her abdominal region where the incisions are at. She has not passed gas or had BM. Discussed with Dr. Zapata to start heparin drip bridging around noon time to Coumadin. She reported that she is producing clear yellow urine without hematuria. Denies any chest pain, palpitation, dyspnea, new extremity weakness or loss of sensation. Reported chronic LLE weakness d/t prior stroke and loss of peripheral vision d/t prior stroke but no change. OBJECTIVE PHYSICAL EXAMINATION: VITAL SIGNS: Please see below. GENERAL APPEARANCE: Alert and awake, in mild distress HEENT: Head normocephalic, atraumatic, b/l pupil equal and round RESPIRATORY: CTA b/l, no rales, wheezing, or rhonchi CARDIOVASCULAR: Systolic murmur aus throughout in all 4 precordial regions. Regular rate and rhythm. ABDOMEN: Soft, no guarding. Tenderness upon palpation in all 4 quadrants. No distention EXTREMITIES: No Analia's sign b/l. Pt able to move all 4 extremities. B/l UE 5+ strength. NEUROLOGICAL: Memory and cognitive function grossly stable. CN2-12 grossly intact. PSYCHIATRIC: Appro to situation LABORATORY DATA, IMAGING STUDIES, MICROBIOLOGY: Please see below. DVT prophylaxis ordered?: Yes Pt is a 58 yo female with PMH of CVAX8, anticardiolipin, and mechanical mitral valve replacement s/p left nephrectomy for left renal mass, pt is on heparin bridging with coumadin 1. Supratherapeutic INR for surgery. Pt's INR was 2.1 after withholding Coumadin since 07/08/2019. I obtained the blood product consent form. 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 Camp [phone] in [place] and he is ok with INR reversal with FFP. 2 units of FFP was given 07/14/2019 evening and pt underwent left nephrectomy in the evening. Pt is currently is on heparin drip bridging to coumadin starting around noon time. PTT Q6H. Stop heparin drip when INR>2 2. Left renal masses. 2 left renal mass one measuring 7.5cm and the other measuring 2.5cm, suspected renal cell carcinoma shown on 07/09/2019 abd MRI, s/p left nephrectomy. Pathology pending. Urology following. Zofran and pain meds PRN. Vitals roughly stable 3. PATRICIA on CKD. 2/2 left nephrectomy yesterday and hx of left renal mass. Discussed with urology and pt had pos fluid balance thus does not need further hydration. Onheparin drip instead of lovenox for bridging d/t GFR<30 4. Hyperkalemia, resolved. K of 5.5 with repeat in the afternoon 4.8 after one dose of kaykelate given. 3. S/P mechanical mitral valve replacement. Pt on heparin drip bridging to Coumadin. 4. HTN. Metoprolol restarted. Hold losartan as pt is currently having PATRICIA on CKD. Vitals roughly stable. Cont vital signs. Resume Aspirin 5. Hyperlipidemia. Resume home med Simvastatin and Aspirin 6. Anxiety. Resume home med Buspirone Called daughter at [phone] as it was noted daughter requested updates, called the number given and was unable to reach daughter, will attempt again tmrw Attending attestation: I evaluated and examined the patient in person; I discussed the care with Resident in detail and agree with the plan above. VS, I&O, 24H, Fishbone Vital Signs/I&O Vital Signs Date Time Temp Pulse Resp B/P (MAP) Pulse Ox O2 Delivery O2 Flow Rate FiO2 07/15/19 06:00 98.0 73 16 123/67 (85) 96 Room Air 07/14/19 22:31 10 I&O- Last 24 Hours up to 6 AM 07/15/19 06:00 Intake Total 3904 ml Output Total 775 ml Balance 3129 ml Laboratory Data 24H LABS Laboratory Tests 2 07/14/19 14:26: Prothrombin Time 19.4H, Prothromb Time International Ratio 1.67 07/14/19 22:42: Nucleated Red Blood Cells % (auto) 0.0, Anion Gap 3L, Glomerular Filtration Rate 27.8L, Calcium Level 8.8 07/15/19 05:41: Prothrombin Time 20.4H, Prothromb Time International Ratio 1.77, Nucleated Red Blood Cells % (auto) 0.0, Anion Gap 5L, Glomerular Filtration Rate 24.7L, Calcium Level 8.3L CBC/BMP Laboratory Tests 07/14/19 22:42 07/15/19 05:41 GME ATTESTATION GME ATTESTATION My faculty preceptor for this patient encounter was physically present during the encounter and was fully available. All aspects of the patient interview, examination, medical decision making process, and medical care plan development were reviewed and approved by the faculty preceptor. The faculty preceptor is aware and concurs with the plan as stated in the body of this note and will attest to such by his/her cosignature. STAR FOSS DO Jul 15, 2019 07:19 ADE MUELLER MD Jul 20, 2019 08:20
[2019-07-15] MEDS ORDERED: HEPARIN DRIP 25,000 UNITS in IV 1 EA IV SCH ×2 (07:45→12:59)
[2019-07-15] MEDS ORDERED: HEPARIN SOD (PORCINE) 5000UNITS/ML VIAL (J1644 PER 1000UNITS) IV PRN ×2 (07:45→13:00)
[2019-07-15] MEDS ORDERED: WARFARIN SOD 5MG TAB PO ONE (08:00)
[2019-07-15] MEDS ORDERED: SOD POLYSTYRENE SULFONATE SUSP 15 GM/60 ML UD PO ONE ×2 (08:00→12:00)
[2019-07-15] MEDS: DOCUSATE SODIUM 100 MG CAP PO SCH ×2 (08:57→22:14)
[2019-07-15] MEDS: busPIRone 5 MG TAB PO SCH ×2 (08:57→22:16)
[2019-07-15] MEDS: METOPROLOL TART 25 MG TABLET PO SCH ×2 (08:58→22:15)
[2019-07-15] MEDS: NS 1,000 ML IV SCH (08:58)
[2019-07-15] MEDS ORDERED: LOSARTAN 50MG TABLET PO SCH (09:00)
--- NOTE | 2019-07-15 12:00 | IPNPDOC ---
Subjective Review oF Systems Chief Complaint The patient is a 58-year-old female admitted with a reason for visit of Left Renal Mass. Events since Last Encounter No acute events o/n. Good pain control. No n/v. No f/c/ns. Objective Physical Examination General Exam: Alert, Cooperative, No Acute Distress ABDOMEN EXAM: Soft, Tenderness (mild), Other (incisions clean/dry/intact) Skin Exam: Nl turgor and temperature Neuro Exam: Normal Speech Psych Exam: Mental status NL, Mood NL Other physical findings catheter draining clear urine Vital Signs/I&O Vital Signs Date Time Temp Pulse Resp B/P (MAP) Pulse Ox O2 Delivery O2 Flow Rate FiO2 07/15/19 11:03 17 07/15/19 10:00 97.5 72 138/58 (84) 98 Room Air 07/14/19 22:31 10 I&O- Last 24 Hours up to 6 AM 07/15/19 06:00 Intake Total 3904 ml Output Total 775 ml Balance 3129 ml Laboratory Data Labs 24H Laboratory Tests 2 07/14/19 14:26: Prothrombin Time 19.4H, Prothromb Time International Ratio 1.67 07/14/19 22:42: Nucleated Red Blood Cells % (auto) 0.0, Anion Gap 3L, Glomerular Filtration Rate 27.8L, Calcium Level 8.8 07/15/19 05:41: Prothrombin Time 20.4H, Prothromb Time International Ratio 1.77, Nucleated Red Blood Cells % (auto) 0.0, Anion Gap 5L, Glomerular Filtration Rate 24.7L, Calcium Level 8.3L CBC/BMP Laboratory Tests 07/14/19 22:42 07/15/19 05:41 Assessment/Plan Date Seen The patient was seen on 07/15/19. Patient Summary This is a 58 y/o F POD1 s/p L robotic radical nephrectomy. Hb 9.8. Cr 2.2. Good UOP. Plan/VTE VTE Prophylaxis Ordered?: Yes VTE Exclusion Mechanical Proph: N/A:VTE Prophy Ordered Plan/Urinary Catheter Urinary Catheter: D/C Harris Plan - d/c Harris - d/c IVF - oral hydration encouraged - hospitalist service following for medical management and to resume patient's anticoagulation - appreciate recs - percocet prn pain - ambulate - SCDs when in bed - strict I/Os - incentive spirometry - advance diet as tolerated JENNIFER RATLIFF MD Jul 15, 2019 12:00
[2019-07-15 14:11] LABS: HEMATOCRIT 31.4 % (36.0-47.0); HEMOGLOBIN 10.2 g/dl (12.0-15.5); MEAN CORPUSCULAR HEMOGLOBIN 28.4 pg (27.0-33.0); MEAN CORPUSCULAR HGB CONC 32.5 g/dl (32.0-36.5); MEAN CORPUSCULAR VOLUME 87.5 fl (80.0-96.0); PLATELET COUNT, AUTOMATED 143 10^3/uL (150-450); RED BLOOD COUNT 3.59 10^6/uL (4.00-5.40); WHITE BLOOD COUNT 7.2 10^3/uL (4.0-10.0)
[2019-07-15 15:10] LABS: CALCIUM LEVEL 8.4 MG/DL (8.5-10.1); CREATININE FOR GFR 2.57 MG/DL (0.55-1.30); GLOMERULAR FILTRATION RATE 20.5 (>51); POTASSIUM SERUM 4.8 MEQ/L (3.5-5.1)
[2019-07-15] MEDS: WARFARIN SOD 5MG TAB PO SCH (16:45)
[2019-07-15 21:11] LABS: HEMATOCRIT 31.3 % (36.0-47.0); HEMOGLOBIN 9.9 g/dl (12.0-15.5)
[2019-07-15] MEDS: SIMVASTATIN 20 MG TAB PO SCH (22:14)
[2019-07-15] MEDS: CETIRIZINE (ZyrTEC) 10 MG TAB PO SCH (22:16)
[2019-07-16 02:00] VITALS: BP 155/79
[2019-07-16] MEDS ORDERED: MAALOX 30 ML SUSP *UDC PO ONE (03:15)
[2019-07-16 04:12] LABS: HEMATOCRIT 31.2 % (36.0-47.0); HEMOGLOBIN 9.9 g/dl (12.0-15.5); MEAN CORPUSCULAR HEMOGLOBIN 27.9 pg (27.0-33.0); MEAN CORPUSCULAR HGB CONC 31.7 g/dl (32.0-36.5); MEAN CORPUSCULAR VOLUME 87.9 fl (80.0-96.0); PLATELET COUNT, AUTOMATED 139 10^3/uL (150-450); RED BLOOD COUNT 3.55 10^6/uL (4.00-5.40); WHITE BLOOD COUNT 6.4 10^3/uL (4.0-10.0)
[2019-07-16 04:28] LABS: INR 2.07; PROTHROMBIN TIME 23.1 SECONDS (11.8-14.0)
[2019-07-16 04:34] LABS: CALCIUM LEVEL 8.8 MG/DL (8.5-10.1); CREATININE FOR GFR 2.89 MG/DL (0.55-1.30); GLOMERULAR FILTRATION RATE 17.9 (>51); POTASSIUM SERUM 4.4 MEQ/L (3.5-5.1)
[2019-07-16 04:35] LABS: PARTIAL THROMBOPLASTIN TIME 133.1 SECONDS (25.0-38.4)
[2019-07-16 06:00] VITALS: BP 155/79
[2019-07-16] MEDS: PERCOCET 5MG/325MG TAB PO PRN ×3 (06:39→21:14)
--- NOTE | 2019-07-16 07:41 | IPNPDOC ---
Subjective Review oF Systems Chief Complaint The patient is a 58-year-old female admitted with a reason for visit of Left Renal Mass. Events since Last Encounter No acute events o/n. Good pain control. Her main discomfort is from gas pain. This has improved some now that she has started passing flatus. No n/v. No chest pain or SOB. No f/c/ns. Objective Physical Examination General Exam: Alert, Cooperative, No Acute Distress ABDOMEN EXAM: Soft, Tenderness (mild), Other (incisions clean/dry/intact; no ecchymosis) Skin Exam: Nl turgor and temperature Neuro Exam: Normal Speech Psych Exam: Mental status NL, Mood NL Vital Signs/I&O Vital Signs Date Time Temp Pulse Resp B/P (MAP) Pulse Ox O2 Delivery O2 Flow Rate FiO2 07/16/19 07:17 16 Room Air 07/16/19 06:00 98.9 78 155/79 (104) 100 07/14/19 22:31 10 I&O- Last 24 Hours up to 6 AM 07/16/19 06:00 Intake Total 1577 ml Output Total 1970 ml Balance -393 ml Laboratory Data Labs 24H Laboratory Tests 2 07/15/19 13:57: Nucleated Red Blood Cells % (auto) 0.0, Activated Partial Thromboplast Time 77.4H, Anion Gap 7L, Glomerular Filtration Rate 20.5L, Calcium Level 8.4L 07/15/19 21:02: Activated Partial Thromboplast Time 112.6H 07/16/19 04:00: Nucleated Red Blood Cells % (auto) 0.0, Activated Partial Thromboplast Time 133.1*H, Anion Gap 5L, Glomerular Filtration Rate 17.9L, Calcium Level 8.8, Prothrombin Time 23.1H, Prothromb Time International Ratio 2.07 CBC/BMP Laboratory Tests 07/15/19 13:57 07/15/19 21:02 07/16/19 04:00 Assessment/Plan Date Seen The patient was seen on 07/16/19. Patient Summary This is a 58 y/o F POD2 s/p L robotic radical nephrectomy. She is doing well. Cr still trending up, now 2.9, but having good UOP. Hb stable at 9.9. INR now therapeutic at 2.07. Plan/VTE VTE Prophylaxis Ordered?: Yes VTE Exclusion Mechanical Proph: N/A:VTE Prophy Ordered Plan - hospitalist service following for medical management and anticoagulation - appreciate recs - heparin drip stopped as INR therapeutic - continue coumadin at home dose - encourage PO hydration - strict I/Os - ambulate - SCDs when in bed - incentive spirometry - regular diet - plan discharge once patient's Cr plateaus/improves - suspect this will be tomorrow JENNIFER RATLIFF MD Jul 16, 2019 07:40
[2019-07-16] MEDS: busPIRone 5 MG TAB PO SCH ×2 (08:15→20:54)
[2019-07-16] MEDS: DOCUSATE SODIUM 100 MG CAP PO SCH ×2 (08:15→20:54)
[2019-07-16] MEDS: METOPROLOL TART 25 MG TABLET PO SCH ×2 (08:17→20:54)
[2019-07-16 10:00] VITALS: BP 115/67
[2019-07-16 14:00] VITALS: BP 107/69
[2019-07-16] MEDS: WARFARIN SOD 5MG TAB PO SCH (17:10)
--- NOTE | 2019-07-16 17:41 | IPNPDOC ---
Date Seen The patient was seen on 07/16/19. Progress Note SUBJECTIVE: Patient is a 58-year-old white female with left renal mass s/p left nephrectomy. She reported some nausea but no vomiting. Denies any fever, chills. She reported pain in her abdominal region where the incisions are at which has been stable. It was noted that she has passed gas; no BM yet. She reported that she cont to produce clear yellow urine without hematuria. Denies any chest pain, palpitation, dyspnea, new extremity weakness or loss of sensation. Reported chronic LLE weakness d/t prior stroke and loss of peripheral vision d/t prior stroke but no change. Denies any hematoma or bleeding that she noticed. OBJECTIVE PHYSICAL EXAMINATION: VITAL SIGNS: Please see below. GENERAL APPEARANCE: Alert and awake, in mild distress HEENT: Head normocephalic, atraumatic, b/l pupil equal and round RESPIRATORY: CTA b/l, no rales, wheezing, or rhonchi CARDIOVASCULAR: Systolic murmur aus throughout in all 4 precordial regions. Regular rate and rhythm. ABDOMEN: Soft, no guarding. Tenderness upon palpation in all 4 quadrants. No distention. No hematoma noted SKIN: healing incisions in left hypogastric and epigastric region, no obvious signs of infection EXTREMITIES: No Analia's sign b/l. NEUROLOGICAL: Memory and cognitive function grossly stable PSYCHIATRIC: Appro to situation LABORATORY DATA, IMAGING STUDIES, MICROBIOLOGY: Please see below. DVT prophylaxis ordered?: Yes Pt is a 58 yo female with PMH of CVAX8, anticardiolipin, and mechanical mitral valve replacement s/p left nephrectomy for left renal mass, pt is s/p heparin bridging, now on home coumadin dose, POD2 1. Supratherapeutic INR for surgery, resolved. Pt's INR was 2.1 after withholding Coumadin since 07/08/2019. I obtained the blood product consent form. 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 Camp [phone] in [place] and he is ok with INR reversal with FFP. 2 units of FFP was given 07/14/2019 evening and pt underwent left nephrectomy in the evening. 2. Left renal masses, s/p L robotic radical nephrectomy. 2 left renal mass one measuring 7.5cm and the other measuring 2.5cm, suspected renal cell carcinoma shown on 07/09/2019 abd MRI, s/p left nephrectomy. Pathology pending. Urology following. Zofran and pain meds PRN. Vitals roughly stable 3. PATRICIA on CKD. 2/2 left nephrectomy yesterday and hx of left renal mass. Pt's creatinine gradually trending up, nephrology consulted 07/16/2019 AM 5. S/P mechanical mitral valve replacement. Pts/p heparin drip bridging, now on home dose coumadin. INR now therapeutic range 2.07. PT/INR daily. 4. HTN. Cont metoprolol. Hold losartan as pt is currently having PATRICIA on CKD. Vitals roughly stable. Cont vital signs. Cont Aspirin 5. Hyperlipidemia. Cont home med Simvastatin and Aspirin 6. Anxiety. Cont home med Buspirone Contact: daughter at [phone] Attending attestation: I evaluated and examined the patient in person; I discussed the care with Resident in detail and agree with the plan above. VS, I&O, 24H, Fishbone Vital Signs/I&O Vital Signs Date Time Temp Pulse Resp B/P (MAP) Pulse Ox O2 Delivery O2 Flow Rate FiO2 07/16/19 17:10 18 07/16/19 14:00 98.8 81 107/69 (82) 100 Room Air 07/14/19 22:31 10 I&O- Last 24 Hours up to 6 AM 07/16/19 06:00 Intake Total 1577 ml Output Total 1970 ml Balance -393 ml Laboratory Data 24H LABS Laboratory Tests 2 07/15/19 21:02: Activated Partial Thromboplast Time 112.6H 07/16/19 04:00: Activated Partial Thromboplast Time 133.1*H, Nucleated Red Blood Cells % (auto) 0.0, Prothrombin Time 23.1H, Prothromb Time International Ratio 2.07, Anion Gap 5L, Glomerular Filtration Rate 17.9L, Calcium Level 8.8 CBC/BMP Laboratory Tests 07/15/19 21:02 07/16/19 04:00 GME ATTESTATION GME ATTESTATION My faculty preceptor for this patient encounter was physically present during the encounter and was fully available. All aspects of the patient interview, examination, medical decision making process, and medical care plan development were reviewed and approved by the faculty preceptor. The faculty preceptor is aware and concurs with the plan as stated in the body of this note and will attest to such by his/her cosignature. STAR FOSS DO Jul 16, 2019 17:41 ADE MUELLER MD Jul 20, 2019 08:24
[2019-07-16 18:00] VITALS: BP 109/62
[2019-07-16] MEDS: CETIRIZINE (ZyrTEC) 10 MG TAB PO SCH (20:55)
[2019-07-16] MEDS: SIMVASTATIN 20 MG TAB PO SCH (20:55)
[2019-07-16 22:00] VITALS: BP 116/64
[2019-07-16 22:27] LABS: APPEARANCE, URINE HAZY (CLEAR); BACTERIA, URINE AUTO 1+ (NEGATIVE); BILIRUBIN, URINE AUTO NEGATIVE (NEGATIVE); BLOOD, URINE BLOOD 1+ (NEGATIVE); COLOR, URINE STRAW (YELLOW); GLUCOSE, URINE (UA) AUTO NEGATIVE (NEGATIVE); KETONE, URINE AUTO NEGATIVE (NEGATIVE); LEUKOCYTE ESTERASE, URINE AUTO NEGATIVE (NEGATIVE); MUCUS, URINE SMALL (NEGATIVE); NITRITE, URINE AUTO NEGATIVE (NEGATIVE); PROTEIN, URINE AUTO 1+ mg/dL (NEGATIVE); RBC, URINE AUTO 5 /HPF (0-3); SPECIFIC GRAVITY URINE AUTO 1.008 (1.002-1.035); SQUAMOUS EPITHELIAL CELL UR AU 7 /HPF (0-6); UROBILINOGEN, URINE AUTO 0.2 mg/dL (0.0-2.0); WBC, URINE AUTO 2 /HPF (0-3)
[2019-07-17 06:00] VITALS: BP 120/64
[2019-07-17 06:10] LABS: HEMATOCRIT 34.5 % (36.0-47.0); MEAN CORPUSCULAR HEMOGLOBIN 28.1 pg (27.0-33.0); MEAN CORPUSCULAR HGB CONC 31.9 g/dl (32.0-36.5); MEAN CORPUSCULAR VOLUME 88.2 fl (80.0-96.0); PLATELET COUNT, AUTOMATED 161 10^3/uL (150-450); RED BLOOD COUNT 3.91 10^6/uL (4.00-5.40)
[2019-07-17 06:24] LABS: INR 2.05; PROTHROMBIN TIME 22.9 SECONDS (11.8-14.0)
--- NOTE | 2019-07-17 06:24 | CR ---
DATE OF CONSULTATION: 07/16/2019 CONSULTATION FOR: Shante Field DO REASON FOR CONSULTATION: Acute kidney injury superimposed on chronic kidney disease following a radical left nephrectomy for a large renal mass. HISTORY OF PRESENT ILLNESS: Ms. Cuello is a 58-year-old female with known history of antiphospholipid syndrome, multiple strokes on chronic anticoagulation, history of mitral valve replacement with mechanical valve, history of hypertension and hyperlipidemia. She fell recently and hurt her back due to which a CAT scan was done and incidentally she was found to have a large mass in her left kidney. She was admitted for elective left nephrectomy and did have her surgery done. Following nephrectomy, her kidney function has worsened with GFR down to about 17 and a nephrology consultation was requested today. The patient is seen this evening on her bedside. PAST MEDICAL HISTORY (Significant for): 1. History of antiphospholipid syndrome. 2. History of multiple strokes with left-sided residual weakness, history of numbness. 3. Hypertension. 4. Hyperlipidemia. 5. History of mitral valve replacement. 6. History of anxiety. 7. History of gastroesophageal reflux disease. 8. History of atrial fibrillation. 9. Diverticulosis. 10. History of rectocele and cystocele. PAST SURGICAL HISTORY (Significant for): 1. Hysterectomy in 2010. 2. History of mitral valve replacement with a mechanical valve in 2010. 3. Appendectomy. 4. Vaginal hysterectomy. 5. History of bilateral tubal ligation. 6. History of dilation curettage. 7. History of colonoscopy. 8. Now recent left robotic-assisted radical nephrectomy. PERSONAL AND SOCIAL HISTORY: The patient has history of tobacco use in the past, currently does not smoke. There is no alcohol or drug use. FAMILY HISTORY: Significant for kidney disease, diabetes and hypertension. REVIEW OF SYSTEMS: She denies any fever or chills. Following surgery, she has been ambulating and denies any dyspnea or chest pain. She has been on long-term anticoagulation and is back on Coumadin. She had bridge therapy done prior to surgery. Ears, nose and throat are unremarkable. She reports a blind spot in her right eye. Cardiovascular system is significant for history of mitral valve replacement. She denies any leg edema, chest pain, orthopnea or paroxysmal nocturnal dyspnea (PND). Respiratory system is negative for cough or hemoptysis. GI system is negative for vomiting or diarrhea. system is negative for dysuria or hematuria. She just had a robot assisted left radical nephrectomy. Musculoskeletal system is significant for back pain and no leg edema. Endocrine system is negative for diabetes or thyroid problems. Hematological system is significant for chronic anticoagulation. Psychosocial system significant for depression, anxiety and claustrophobia. Neurological system is significant for numbness in her left side. She denies any seizures, but had multiple strokes. Skin is negative for rash or ulcers. PHYSICAL EXAMINATION: Middle-aged lady sitting in the chair at the time of my visit without any acute distress. Temperature 98.6 degrees Fahrenheit, heart rate 82 per minute and respiratory rate 18 per minute. Blood pressure 116/64 mmHg and oxygen saturation 98%. Head is atraumatic. Neck supple and without jugular venous distention (JVD) sitting upright. There are no palpable abnormal cervical lymph nodes. Heart sounds with mechanical mitral valve sounds and a systolic murmur. Lungs sound clear to auscultation. Abdomen: Soft, obese and nontender. Surgical incisions are clean. Extremities have no cyanosis or clubbing. Neurologically, she is awake, alert and oriented x3. LABORATORY DATA: On admission on July 13, her BUN was 27 and creatinine 1.98. Sodium 137 and potassium 5.1. On July 14 following surgery, sodium 137, potassium 5.5, CO2 27, BUN 30 and creatinine 2.19. A repeat chemistry the same day showed a BUN of 32 and creatinine 2.57 in the afternoon and this morning her BUN is 40 and creatinine 2.89. Glucose 115 and calcium 8.8. INR is up to 2.07 today. MEDICATIONS (Current medications in the hospital include) - Tylenol as needed for pain - buspirone 15 mg twice a day - cetirizine 5 mg at bedtime - Colace 100 mg twice a day - losartan is currently on hold - metoprolol 25 mg twice a day - morphine 2 mg every 3 hours p.r.n. severe pain - Zofran 4 mg p.r.n. nausea - Percocet 5/325 mg as needed for moderate pain - simvastatin 20 mg daily - Coumadin 5 mg daily and 2.5 mg on Saturday and Saturday ALLERGIES: She has NO KNOWN DRUG ALLERGIES. PROBLEMS: 1. Acute renal failure superimposed on chronic kidney disease. The patient had a serum creatinine of 1.98 even prior to surgery. She is already stage IV chronic kidney disease (CKD). She lost her left kidney and GFR has now gone down to about 18 mL per minute. There is no urinalysis available at this time. I am not sure if she had any proteinuria or hematuria prior to surgery. Will get a urinalysis. She was on angiotensin receptor zakia for long-term and currently it is already on hold. I will completely stop her losartan for now. She reports adequate oral intake and has not been on any diuretic. I do not feel that she is volume depleted. A nuclear renal scan could be an option if she can tolerate, but she reports claustrophobia. She has been on long-term anticoagulation so any thromboembolic problems are less likely. At present, renal profile should be checked again tomorrow morning and I would recommend to keep her off CYNDI inhibitor and angiotensin receptor blockers. She is not suitable for any NSAID or diuretic use. 2. Hypertension. Blood pressure is somewhat on the soft side. She is only on low-dose beta zakia and angiotensin receptor zakia is being stopped. 3. Left renal mass, status post left nephrectomy. Pathology is still pending and she will probably need further followup as an outpatient. She did have an abdominal MRI done on July 08 which showed a large solid heterogeneous enhancing renal mass upper pole left kidney with smaller mass lower pole left kidney. Abdominal and pelvic CAT scan done prior to this MRI did not show any other metastatic lesions. Thank you for involving me in the care of Ms. Cuello. I will follow her along with you.
[2019-07-17] MEDS: PERCOCET 5MG/325MG TAB PO PRN ×4 (06:25→21:38)
[2019-07-17 06:40] LABS: CALCIUM LEVEL 8.7 MG/DL (8.5-10.1); CREATININE FOR GFR 3.08 MG/DL (0.55-1.30); GLOMERULAR FILTRATION RATE 16.7 (>51); POTASSIUM SERUM 4.9 MEQ/L (3.5-5.1)
[2019-07-17] MEDS: METOPROLOL TART 25 MG TABLET PO SCH ×2 (09:21→21:37)
[2019-07-17] MEDS: DOCUSATE SODIUM 100 MG CAP PO SCH ×2 (09:21→21:36)
--- NOTE | 2019-07-17 09:32 | IPNPDOC ---
Date Seen The patient was seen on 07/17/19. Progress Note SUBJECTIVE: Patient is a 58-year-old white female with left renal mass s/p left nephrectomy. Reported chronic LLE weakness d/t prior stroke and loss of peripheral vision d/t prior stroke but no changeDenies any fever, chills. She reported pain in her abdominal region where the incisions are at which has been stable.Denies any chest pain, palpitation, dyspnea; voiced no new extremity weakness or loss of sensation. Cont to deny any hematoma or bleeding that she noticed; reported mild right back pain which pt reported to be where her right kidney is at. OBJECTIVE PHYSICAL EXAMINATION: VITAL SIGNS: Please see below. GENERAL APPEARANCE: Alert and awake, in minimal distress HEENT: Head normocephalic, atraumatic, b/l pupil equal and round RESPIRATORY: CTA b/l, no rales, wheezing, or rhonchi CARDIOVASCULAR: Systolic murmur aus in aortic region, mid-systolic click in pulmontic region. Regular rate and rhythm. ABDOMEN: Soft, no guarding. Mild tenderness upon palpation in all 4 quadrants. No distention. No hematoma noted SKIN: healing incisions in left hypogastric and epigastric region, no obvious signs of infection GENITOURETERAL:No CVA tenderness on right. EXTREMITIES: No Analia's sign b/l. NEUROLOGICAL: Memory and cognitive function grossly stable PSYCHIATRIC: Appro to situation LABORATORY DATA, IMAGING STUDIES, MICROBIOLOGY: Please see below. DVT prophylaxis ordered?: Yes Pt is a 58 yo female with PMH of CVAX8, anticardiolipin, and mechanical mitral valve replacement s/p left nephrectomy for left renal mass, pt is s/p heparin bridging, now on home coumadin dose, POD3 1. Supratherapeutic INR for surgery, resolved. Pt's INR was 2.1 after withholding Coumadin since 07/08/2019. I obtained the blood product consent form. Discussed with pt's electronic data interchange specialist Dr. Camp [phone] in [place] and he is ok with INR reversal with FFP. 2 units of FFP was given 07/14/2019 evening and pt underwent left nephrectomy in the evening. 2. Left renal masses, s/p L robotic radical nephrectomy. 2 left renal mass one measuring 7.5cm and the other measuring 2.5cm, suspected renal cell carcinoma shown on 07/09/2019 abd MRI, s/p left nephrectomy; pathology pending. Urology and nephro following. Zofran and pain meds PRN. Vitals and CBC roughly stable. 3. PATRICIA on CKD. 2/2 left nephrectomy yesterday and hx of left renal mass. Pt's creatinine gradually trending up now 3.08, nephrology consulted, and we appreciate recommendation. UA pos for +1blood, +5RBC, +1 protein, and +1 evin.NM kidney scan and doppler US of kidney being ordered. 5. S/P mechanical mitral valve replacement. Pt s/p heparin drip bridging, now on home dose Coumadin. INR cont to be within therapeutic range. PT/INR daily. 4. HTN. Cont metoprolol. Losartan d/c currently having PATRICIA on CKD. Vitals roughly stable. Cont vital signs. 5. Hyperlipidemia. Cont home med Simvastatin 6. Anxiety. Cont home med Buspirone Contact: daughter at [phone] VS, I&O, 24H, Fishbone Vital Signs/I&O Vital Signs Date Time Temp Pulse Resp B/P (MAP) Pulse Ox O2 Delivery O2 Flow Rate FiO2 07/17/19 09:21 90 130/90 07/17/19 06:25 20 07/17/19 06:00 98.4 94 Room Air 07/14/19 22:31 10 I&O- Last 24 Hours up to 6 AM 07/17/19 06:00 Intake Total 1330 ml Output Total 1050 ml Balance 280 ml Laboratory Data 24H LABS Laboratory Tests 2 07/16/19 21:40: Urine Color STRAW, Urine Appearance HAZY, Urine pH 6.0, Urine Specific [place] 1.008, Urine Protein 1+H, Urine Glucose (Auto)(UA) NEGATIVE, Urine Ketones (Auto) NEGATIVE, Urine Blood 1+H, Urine Nitrite NEGATIVE, Urine Bilirubin NEGATIVE, Urine Urobilinogen 0.2, Urine Leukocyte Esterase (Auto) NEGATIVE, Urine WBC (Auto) 2, Urine RBC (Auto) 5H, Urine Hyaline Casts (Auto) 0, Urine Bacteria (Auto) 1+H, Urine Squamous Epithelial Cells 7, Urine Mucus (Auto) SMALL, Urine Sperm (Auto) 07/17/19 05:49: Nucleated Red Blood Cells % (auto) 0.0, Prothrombin Time 22.9H, Prothromb Time International Ratio 2.05, Anion Gap 6L, Glomerular Filtration Rate 16.7L, Calcium Level 8.7 CBC/BMP Laboratory Tests 07/17/19 05:49 GME ATTESTATION GME ATTESTATION My faculty preceptor for this patient encounter was physically present during the encounter and was fully available. All aspects of the patient interview, examination, medical decision making process, and medical care plan development were reviewed and approved by the faculty preceptor. The faculty preceptor is aware and concurs with the plan as stated in the body of this note and will attest to such by his/her cosignature. STAR FOSS DO Jul 17, 2019 09:32
[2019-07-17] MEDS: busPIRone 5 MG TAB PO SCH ×2 (09:52→21:36)
[2019-07-17 10:00] VITALS: BP 157/76
[2019-07-17 14:00] VITALS: BP 156/76
--- NOTE | 2019-07-17 15:25 | IPN ---
DATE: 07/17/2019 Ms. Cuello was seen and examined this morning during bedside rounds. She is sitting up in her chair in no acute distress. She has really no complaints today. Would just like to know why her kidney function continues to be elevated. She does have good urine output. No fevers, no chills, no abdominal pain discomfort with the exception of the insertion sites for her laparotomy. She describes them as tender to palpation. There are no overnight events reported by nursing. PHYSICAL EXAMINATION: VITAL SIGNS: Temperature 98.7, pulse 71, respiration 18, blood pressure 156/76 (103), pulse oximetry 100% on room air. Intake total 1512 mL, output total 1900 mL, balance of -388 mL. No weight was taken this morning. GENERAL: This is a pleasant 58-year-old female who does not appear in any acute distress, sitting up in the chair appropriately answering questions. HEENT: Atraumatic, normocephalic. No jugular venous distention (JVD) noted. CARDIOVASCULAR: Regular rate and rhythm. Faint 3/6 systolic murmur, loudest at the left intercostal space on the lower border but can heard in all pericardial regions. No radiation to the carotids. ABDOMEN: Soft, morbidly obese, tender to palpation, especially around the laparotomy and surgical insertion sites. Some bruising can be appreciated on the left lower quadrant. No hematoma noted. EXTREMITIES: No lower extremity edema or upper extremity edema. No calf tenderness. NEUROLOGIC: No focal deficits noted. Alert and oriented times three. PSYCHIATRIC: Appropriate. LABORATORY DATA: Hematology: WBC 6.0, hemoglobin 11.0, hematocrit 34.5, platelets 151. Chemistry: Sodium 140, potassium 4.9, chloride 105, carbon dioxide 29, anion gap 6, BUN 46, creatinine 3.0, fasting glucose 92. Pathology from nephrectomy currently pending. ASSESSMENT AND PLAN: 1. Acute renal failure superimposed on chronic kidney disease. Her BUN and creatinine bumped up today. She is currently stage IV chronic kidney disease, but because of the left nephrectomy, her GFR continues to go down. Her urinalysis does show she only has 1+ protein. We have stopped her nephrotoxic losartan. She continues to have really good oral intake, and despite this her BUN and creatinine go up. At this current time, we recommend getting a Doppler flow of the renal arteries as well as a nuclear medicine renal flow study. My suspicious of an infarct is very low, for she is on long-term anticoagulation. Will continue to monitor her BUN and creatinine and urine output and await these studies for further recommendations. 2. Hypertension. Her blood pressure is actually slightly more elevated today with one sytolic at 150, but yesterday it was good, maintaining a systolic above 120. Because we discontinued her losartan, we will monitor and will continue with the low-dose beta zakia and see how her blood pressures are. 3. Left renal mass, status post left nephrectomy. Pathology currently pending.
--- NOTE | 2019-07-17 16:02 | IPNPDOC ---
Subjective Review oF Systems Chief Complaint The patient is a 58-year-old female admitted with a reason for visit of Left Renal Mass. Events since Last Encounter No acute events o/n. Good pain control. Ambulating well. Passing flatus. No bm yet. No n/v. No f/c/ns. Objective Physical Examination General Exam: Alert, Cooperative, No Acute Distress ABDOMEN EXAM: Soft, Tenderness, Other (incisions clean/dry/intact) Skin Exam: Nl turgor and temperature Neuro Exam: Normal Speech Psych Exam: Mental status NL, Mood NL Vital Signs/I&O Vital Signs Date Time Temp Pulse Resp B/P (MAP) Pulse Ox O2 Delivery O2 Flow Rate FiO2 07/17/19 15:20 18 07/17/19 14:00 99.7 84 156/76 (102) 96 Room Air 07/14/19 22:31 10 I&O- Last 24 Hours up to 6 AM 07/17/19 06:00 Intake Total 1330 ml Output Total 1050 ml Balance 280 ml Laboratory Data Labs 24H Laboratory Tests 2 07/16/19 21:40: Urine Color STRAW, Urine Appearance HAZY, Urine pH 6.0, Urine Specific [place] 1.008, Urine Protein 1+H, Urine Glucose (Auto)(UA) NEGATIVE, Urine Ketones (Auto) NEGATIVE, Urine Blood 1+H, Urine Nitrite NEGATIVE, Urine Bilirubin NEGATIVE, Urine Urobilinogen 0.2, Urine Leukocyte Esterase (Auto) NEGATIVE, Urine WBC (Auto) 2, Urine RBC (Auto) 5H, Urine Hyaline Casts (Auto) 0, Urine Bacteria (Auto) 1+H, Urine Squamous Epithelial Cells 7, Urine Mucus (Auto) SMALL, Urine Sperm (Auto) 07/17/19 05:49: Nucleated Red Blood Cells % (auto) 0.0, Prothrombin Time 22.9H, Prothromb Time International Ratio 2.05, Anion Gap 6L, Glomerular Filtration Rate 16.7L, Calcium Level 8.7 CBC/BMP Laboratory Tests 07/17/19 05:49 Assessment/Plan Date Seen The patient was seen on 07/17/19. Patient Summary This is a 58 y/o F POD3 s/p L robotic radical nephrectomy. Her Hb is stable at 11. Her Cr is still trending up, now 3.1. She continues to have good UOP. Nephrology is following. A renal scan was done today w/ results pending. She is scheduled for a doppler US tomorrow. Plan/VTE VTE Prophylaxis Ordered?: Yes VTE Exclusion Mechanical Proph: N/A:VTE Prophy Ordered Plan - hospitalist service following for medical management and anticoag - appreciate recs - nephrology following for acute on chronic kidney injury - appreciate recs - percocet prn pain - strict I/Os - SCDs in bed - ambulate - incentive spirometry - anticipate discharge once renal fxn is stable JENNIFER RATLIFF MD Jul 17, 2019 16:02
[2019-07-17] MEDS ORDERED: WARFARIN SOD 2.5MG TAB PO SCH (17:00)
[2019-07-17] MEDS ORDERED: WARFARIN SOD 7.5MG TAB PO SCH (17:00)
[2019-07-17] MEDS: WARFARIN SOD 5MG TAB PO SCH (17:40)
--- NOTE | 2019-07-17 17:52 | REP ---
REASON: Assess right renal function. Patient is status post left nephrectomy due to renal cell carcinoma. After the intravenous administration of 8.8 mCi of technetium 99m MAG-3, a right renal flow and scan was obtained. The flow portion of the examination shows nonvisualization of the right kidney throughout the frames. The dynamic renal scan shows a slow appearing increase in the amount of activity seen throughout the right kidney with little if any visualized washout characteristics. Pre- and postvoid scintiscan shows no significant difference in the appearance of the activity level in the right kidney. Analysis of the right functional renogram curve shows the [id number] activity 12 minutes and the t1/2 value noncalculable since it is greater than 30 minutes. Since the patient is status post left nephrectomy, there is no split differential analysis. IMPRESSION: Altered right renal function, as described above. Electronically Signed by Angel Frederick DO 07/20/2019 10:50 A
[2019-07-17 18:00] VITALS: BP 153/75
[2019-07-17] MEDS: CETIRIZINE (ZyrTEC) 10 MG TAB PO SCH (21:36)
[2019-07-17] MEDS: SIMVASTATIN 20 MG TAB PO SCH (21:37)
[2019-07-17 22:00] VITALS: BP 152/77
[2019-07-18 02:00] VITALS: BP 144/76
[2019-07-18 06:00] VITALS: BP 105/64
[2019-07-18 07:32] LABS: HEMATOCRIT 31.5 % (36.0-47.0); HEMOGLOBIN 10.2 g/dl (12.0-15.5); MEAN CORPUSCULAR HEMOGLOBIN 28.4 pg (27.0-33.0); MEAN CORPUSCULAR HGB CONC 32.4 g/dl (32.0-36.5); MEAN CORPUSCULAR VOLUME 87.7 fl (80.0-96.0); PLATELET COUNT, AUTOMATED 154 10^3/uL (150-450); RED BLOOD COUNT 3.59 10^6/uL (4.00-5.40); WHITE BLOOD COUNT 5.3 10^3/uL (4.0-10.0)
[2019-07-18 07:42] LABS: INR 2.36; PROTHROMBIN TIME 25.6 SECONDS (11.8-14.0)
[2019-07-18 08:07] LABS: CALCIUM LEVEL 8.5 MG/DL (8.5-10.1); CREATININE FOR GFR 3.07 MG/DL (0.55-1.30); GLOMERULAR FILTRATION RATE 16.7 (>51); POTASSIUM SERUM 5.1 MEQ/L (3.5-5.1)
[2019-07-18] MEDS: DOCUSATE SODIUM 100 MG CAP PO SCH (09:11)
[2019-07-18] MEDS: busPIRone 5 MG TAB PO SCH (09:12)
[2019-07-18 09:13] VITALS: BP 143/76
[2019-07-18] MEDS: PERCOCET 5MG/325MG TAB PO PRN ×2 (09:13→13:46)
[2019-07-18] MEDS: METOPROLOL TART 25 MG TABLET PO SCH (09:13)
[2019-07-18] MEDS ORDERED: MIRALAX *UNIT DOSE* 17GM PACKET PO PRN (09:15)
[2019-07-18] MEDS ORDERED: SENOKOT S TAB PO PRN (09:15)
[2019-07-18 10:00] VITALS: BP 132/76
--- NOTE | 2019-07-18 12:34 | IPNPDOC ---
Subjective Review oF Systems Chief Complaint The patient is a 58-year-old female admitted with a reason for visit of Left Renal Mass. Events since Last Encounter No acute events o/n. Good pain control. No n/v. Passing flatus. Ambulating well. No f/c/ns. Objective Physical Examination General Exam: Alert, Cooperative, No Acute Distress ABDOMEN EXAM: Soft, Tenderness, Other (incisions clean/dry/intact) Skin Exam: Nl turgor and temperature Neuro Exam: Normal Speech Psych Exam: Mental status NL, Mood NL Vital Signs/I&O Vital Signs Date Time Temp Pulse Resp B/P (MAP) Pulse Ox O2 Delivery O2 Flow Rate FiO2 07/18/19 10:00 98.4 69 17 132/76 (94) 99 Room Air 07/14/19 22:31 10 I&O- Last 24 Hours up to 6 AM 07/18/19 06:00 Intake Total 1660 ml Output Total 2025 ml Balance -365 ml Laboratory Data Labs 24H Laboratory Tests 2 07/18/19 07:19: Nucleated Red Blood Cells % (auto) 0.0, Prothrombin Time 25.6H, Prothromb Time International Ratio 2.36, Anion Gap 6L, Glomerular Filtration Rate 16.7L, Calcium Level 8.5 CBC/BMP Laboratory Tests 07/18/19 07:19 Assessment/Plan Date Seen The patient was seen on 07/18/19. Patient Summary This is a 58 y/o F POD4 s/p L robotic radical nephrectomy. Pathology was notable for 2 tumors, one 7.6cm and the other 2.5cm. 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 The tumors were confined to Gerota's fascia and margins were negative. These results were discussed w/ the patient. Hb 10.2. Cr stable at 3.07. UOP has been good. Plan/VTE VTE Prophylaxis Ordered?: Yes VTE Exclusion Mechanical Proph: N/A:VTE Prophy Ordered VTE Exclusion Pharmacological: N/A:VTE Prophy Ordered Plan - hospitalist service following for medical management and anticoag - appreciate recs - nephrology following for acute on chronic kidney injury - appreciate recs - Cr now stable, ok for discharge home - percocet prn pain - strict I/Os - SCDs in bed - ambulate - incentive spirometry - discharge home w/ f/u w/ nephrology next wk and me in 2 wks JENNIFER RATLIFF MD Jul 18, 2019 12:34
[2019-07-18] MEDS ORDERED: PERCOCET PO (12:49)
--- NOTE | 2019-07-18 13:26 | IPN ---
DATE OF VISIT: 07/18/2019 Ms. Cuello is seen this morning on her bedside. She is sitting at the edge of the bed. She has back pain, otherwise feels well. She has no dysuria, hematuria, fever or chills. She denies any dyspnea or chest pain. Yesterday, she had a nuclear renal scan which raised a suspicion for poor blood flow to her kidney. She had a renal Doppler study this morning, which has not been read as yet by the radiologist, however has been reviewed by vascular surgery at my request. Her serum creatinine has leveled off at 3.0. On physical exam, temperature 98.4 degrees Fahrenheit, heart rate 70 per minute and respiratory rate 17 per minute. Blood pressure 132/76 mmHg and oxygen saturation 99% on room air. Head is atraumatic. Neck supple and without jugular venous distention (JVD) or thyroid enlargement. Lungs have diminished breath sounds but no rales or wheezing. Heart sounds are regular. Abdomen soft, nontender and bowel sounds are normal. Surgical incisions are all clean and dry. Extremities have no cyanosis or clubbing. She has no peripheral edema. Today's labs show sodium 140, potassium 5.1, CO2 28, BUN 44 and creatinine 3.0. Glucose 100 and calcium 8.5. WBC count is 5.3, hemoglobin 10.2 and hematocrit 31.5. PROBLEMS: 1. Acute kidney injury superimposed on chronic kidney disease. Kidney function seems to be leveled off. She is not on any nephrotoxic medications. She was on losartan at home, which has already been stopped. At present, she has good urine output and volume status is well compensated. Dr. Ayers was consulted due to nuclear renal scan showing poor blood flow to her right kidney. She had a Doppler renal ultrasound done this morning, which showed good blood flow and no significant renal artery disease. In the meantime, her creatinine has leveled off at 3.0. She has been chronically anticoagulated due to her antiphospholipid syndrome and mitral valve replacement. She has been therapeutic on her anticoagulation with international normalized ratio (INR) 2.36 today. I feel that she can be discharged to home and followup in the outpatient clinic for her acute kidney injury. She should remain off losartan and not use any nonsteroidal anti-inflammatory drugs (NSAIDs). 2. Anemia. Her anemia is stable at present and does not need any intervention. 3. Hypertension. Blood pressure very well controlled . Losartan has been stopped and she should stay off losartan for now. DISPOSITION: I feel that patient can be discharged to home and followup as an outpatient. At present, no intervention is needed and her kidney function is likely to improve. Dr. Ayers has reviewed her nuclear scan and Doppler ultrasound. It will be very high risk to consider doing a renal angiogram in view of her acute renal failure as far as her kidney. I think it is advisable to watch for the next few days and repeat her renal profile as an outpatient in the next few days. ROSEANN
--- NOTE | 2019-07-18 13:27 | IPNPDOC ---
Date Seen The patient was seen on 07/18/19. Progress Note SUBJECTIVE: Patient is a 58 yo white female with left renal mass s/p left nephrectomy. Reported chronic LLE weakness d/t prior stroke and loss of peripheral vision d/t prior stroke but no change. Pt examined at bedside today; denies any fever, chills. She reported pain in her abdomen region where the incisions are at which has been stable. Denies any chest pain, palpitation, dyspnea; voiced no new extremity weakness or loss of sensation. Cont to deny any hematoma or bleeding that she noticed; cont to reported right flank pain. Pt reported no BM since admission despite being on docusate OBJECTIVE PHYSICAL EXAMINATION: VITAL SIGNS: Please see below. GENERAL APPEARANCE: Alert and awake, in mild distress HEENT: Head normocephalic, atraumatic, b/l pupil equal and round RESPIRATORY: CTA b/l, no rales, wheezing, or rhonchi CARDIOVASCULAR: Mid-systolic click heard at aortic, pulmonic, mitral, and tricuspid region. Regular rate and rhythm. ABDOMEN: Soft, no guarding. Mild tenderness upon palpation in all 4 quadrants. No distention. No hematoma noted SKIN: healing incisions in left hypogastric and epigastric region, no obvious signs of infection GENITOURETERAL:No CVA tenderness on right. NEUROLOGICAL: Memory and cognitive function grossly stable PSYCHIATRIC: Appro to situation LABORATORY DATA, IMAGING STUDIES, MICROBIOLOGY: Please see below. DVT prophylaxis ordered?: Yes Pt is a 58 yo female with PMH of CVAX8, anticardiolipin, and mechanical mitral valve replacement s/p left nephrectomy for left renal mass, pt is s/p heparin bridging, now on home coumadin dose, POD4 1. Supratherapeutic INR for surgery, resolved. Pt's INR was 2.1 after withholding Coumadin since 07/08/2019. I obtained the blood product consent form. Discussed with pt's swamper Dr. Camp [phone] in [place] and he is ok with INR reversal with FFP. 2 units of FFP was given 07/14/2019 evening and pt underwent left nephrectomy in the evening. 2. Left renal masses, s/p L robotic radical nephrectomy. 2 left renal mass one measuring 7.5cm and the other measuring 2.5cm, suspected renal cell carcinoma shown on 07/09/2019 abd MRI, s/p left nephrectomy; pathology pending. Urology and nephro following. Zofran and pain meds PRN. Vitals and CBC roughly stable. 3. PATRICIA on CKD. 2/2 left nephrectomy yesterday and hx of left renal mass. Pt's creatinine gradually trending up but has stabilized compared to 07/17/2019, now 3.07, nephrology consulted, and we appreciate recommendation. UA pos for +1blood, +5RBC, +1 protein, and +1 evin. NM kidney scan report pending; doppler US of kidney showed altered right kidney function. Nephro recommended outpatient nephrology follow up in 3-4 days after discharge and avoid losartan, aspirin, or other nephrotoxic meds 5. S/P mechanical mitral valve replacement. Pt s/p heparin drip bridging, now on home dose Coumadin. INR cont to be within therapeutic range. PT/INR daily. 4. HTN. Cont metoprolol. Losartan d/c currently having PATRICIA on CKD. Vitals roughly stable. Cont vital signs. 5. Hyperlipidemia. Cont home med Simvastatin 6. Anxiety. Cont home med Buspirone Contact: daughter at [phone] DISPO:Pt ready for discharge today. Hospitalist team will sign off; discharge will be from urology team VS, I&O, 24H, [place] Vital Signs/I&O Vital Signs Date Time Temp Pulse Resp B/P (MAP) Pulse Ox O2 Delivery O2 Flow Rate FiO2 07/18/19 10:00 98.4 69 17 132/76 (94) 99 Room Air 07/14/19 22:31 10 I&O- Last 24 Hours up to 6 AM 07/18/19 06:00 Intake Total 1660 ml Output Total 2025 ml Balance -365 ml Laboratory Data 24H LABS Laboratory Tests 2 07/18/19 07:19: Nucleated Red Blood Cells % (auto) 0.0, Prothrombin Time 25.6H, Prothromb Time International Ratio 2.36, Anion Gap 6L, Glomerular Filtration Rate 16.7L, Calcium Level 8.5 CBC/BMP Laboratory Tests 07/18/19 07:19 STAR FOSS DO Jul 18, 2019 13:27
--- NOTE | 2019-07-18 22:07 | CR.PDOC ---
General Date of Consultation: Jul 18, 2019 Consultation REASON FOR CONSULTATION/CHIEF COMPLAINT: Evaluate renal perfusion HISTORY OF PRESENT ILLNESS: Ms Cuello is a very pleasant 58yo patient with h/o antiphospolipid syndrome and chronic anticoagulation who underwent nephrectomy for incidental finding of 2 kidney masses, and underwent workup postop for worsening renal insufficiency. The patient had a preop Cr of 1.98, now elevated to 3, but possibly plateaued as it has been unchanged for the past 2 days. She underwent a NM renal scan that suggests renal clearance is diminished, but she also underwent a renal arterial duplex that suggests renal artery perfusion is relatively normal, with a normal renal aortic ratio and normal resistive indices. I do not see any waveform abnormalities to suggest impaired renal perfusion. At this point, I feel this is likely higher risk for an arteriogram to further evaluate perfusion than benefit, and even a very small dose of contrast could be further detrimental to remaining unilateral kidney function. The patient and I had a long discussion today about the need for surveillance with renal duplex repeated in a few months, or sooner if any deterioration of renal function occurs. She is agreeable. All questions answered. ALLERGIES: Please see below. HOME MEDICATIONS: Please see below. PAST MEDICAL HISTORY: APS, CVA x8, HLD, HTN GERD, diverticulosis, rectocele, cystocele, afib, anxiety, RCC PAST SURGICAL HISTORY: Nephrectomy, MVR, MICHAEL, Appendectomy, D&C FAMILY HISTORY: Heart disease SOCIAL HISTORY: Denies tobacco, etoh, illicit drug use REVIEW OF SYSTEMS: CONSTITUTIONAL: Denies f/c HEENT: Denies vision changes or hearing loss CARDIOVASCULAR: denies CP RESPIRATORY: Denies SOB GENITOURINARY: Denies dysuria MUSCULOSKELETAL: Denies claudication GASTROINTESTINAL: Denies n/v/d. +GERD SKIN: Denies rashes NEUROLOGICAL: +h/o CVA. Denies sz, FLYNN PSYCHIATRIC: +anxiety ENDOCRINE: Denies DM HEMATOLOGIC/LYMPHATIC: +easy bruising ALLERGIC/IMMUNOLOGIC: Denies. PHYSICAL EXAMINATION: VITAL SIGNS: Please see below. GENERAL APPEARANCE: Medically stable, NAD HEENT: NC, TMI, vision grossly intact RESPIRATORY: CTA CARDIOVASCULAR: IRR ABDOMEN: Soft NT ND EXTREMITIES: Distal pulses intact NEUROLOGICAL: MAEE, A&Ox3 PSYCHIATRIC: pleasant and cooperative LABORATORY DATA: Please see below. ASSESSMENT/PLAN: Very pleasant 58yo patient s/p nephrectomy and baseline renal insufficiency a bit worse postop, now with Cr plateauing at 3. 1. Renal perfusion seems stable based on arterial duplex. Cr is stablizing postop. 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 2. We will see the patient back in clinic, and plan to repeat the arterial duplex in 3 months to see if everything is stable. We appreciate the opportunity to participate in the care of this patient. Vital Signs/I&O Vital Signs Date Time Temp Pulse Resp B/P (MAP) Pulse Ox O2 Delivery O2 Flow Rate FiO2 07/18/19 13:46 17 Room Air 07/18/19 10:00 98.4 69 132/76 (94) 99 07/14/19 22:31 10 I&O- Last 24 Hours up to 6 AM 07/18/19 09:00 Intake Total 1660 ml Output Total 2025 ml Balance -365 ml Laboratory Data Labs 24H Laboratory Tests 2 07/18/19 07:19: Nucleated Red Blood Cells % (auto) 0.0, Prothrombin Time 25.6H, Prothromb Time International Ratio 2.36, Anion Gap 6L, Glomerular Filtration Rate 16.7L, Calcium Level 8.5 CBC/BMP Laboratory Tests 07/18/19 07:19 Allergies Coded Allergies: No Known Allergies (Unverified , 06/11/19) Home Medications Scheduled Buspirone HCl (Buspirone HCl) 15 Mg Tab, 15 MG PO BID, (Reported) Cetirizine HCl (Cetirizine HCl) 5 Mg Tab.chew, 1 TAB PO DAILY for allergy symptoms for 30 Days, #30 (Reported) Metoprolol Tartrate (Metoprolol Tartrate) 25 Mg Tablet, 25 MG PO BID, (Reported) Multivitamin (Multivitamin) 1 Each Tablet, 1 EACH PO DAILY, (Reported) Psyllium Husk (with Sugar) (Metamucil Powder) 575 Gm Powder, 1 PKT PO DAILY, (Reported) Simvastatin (Zocor) 20 Mg Tab, 20 MG PO DAILY, (Reported) Warfarin Sodium (Warfarin Sodium) 2.5 Mg Tablet, 2.5 MG PO 2XW, (Reported) tuesdays and fridays for a total dose of 7.5mg Warfarin Sodium (Coumadin) 5 Mg Tablet, 5 MG PO DAILY, (Reported) Scheduled PRN Acetaminophen (Acetaminophen) 500 Mg Tablet, 500 MG PO Q6HP PRN for PAIN, (Re ported) Oxycodone/Acetaminophen (Oxycodone-Acetaminophen 5-325) 1 Each Tablet, 1 TAB PO Q6HP PRN for MODERATE/SEVERE PAIN (PS 5-10), #20 CLAIRE BERNABE MD Jul 18, 2019 22:07
--- NOTE | 2019-07-20 13:52 | REP ---
RENAL ULTRASOUND WITH DUPLEX DOPPLER RENAL ARTERY EVALUATION: Real-time ultrasound evaluation of right kidney performed. Kidney is normal in size and echotexture measuring 9.5 x 4.7 x 4.7 cm. There is no mass or hydronephrosis. Urinary bladder is empty. Patient has had a prior left nephrectomy, 07/14/2019. Real-time ultrasound evaluation and duplex Doppler interrogation of the right renal artery and renal vasculature is performed. Peak systolic velocity of the abdominal aorta at the level of the right renal artery is 81.6 cm/s. Peak systolic velocity of the origin of the main right renal artery is 73.4 cm/s, imtks-al-tuxfxi ratio 0.8. Resistive indices are measured in the upper, middle, and lower thirds of the right kidney and range between 0.56 and 0.65. Acceleration times range between 0.02 and 0.047. IMPRESSION: Right kidney demonstrates no mass or hydronephrosis. There is no compelling duplex Doppler sonographic evidence of significant right renal artery stenosis. Electronically Signed by Edward Cruz MD 07/20/2019 10:57 P
== END 2019-07-18 14:30 | disposition home or self-care (01) | DRG 657 ==
LOC: M OR 07-14 06:38 → M MSPAV 07-14 09:09
PROVIDERS: ADMIT Urology; ATTEND Urology
PROC: 8E0W4CZ Robotic Assisted Procedure of Trunk Region, Percutaneous Endoscopic Approach (ICD-10-PCS; 2019-07-14)
PROC: 0TT14ZZ Resection of Left Kidney, Percutaneous Endoscopic Approach (ICD-10-PCS; principal; 2019-07-14 08:30)
DX: C64.2 Malignant neoplasm of left kidney, except renal pelvis (principal); I69.354 Hemiplegia and hemiparesis following cerebral infarction affecting left non-dominant side; D68.61 Antiphospholipid syndrome; N17.9 Acute kidney failure, unspecified; F41.9 Anxiety disorder, unspecified; N18.9 Chronic kidney disease, unspecified; I69.398 Other sequelae of cerebral infarction; I12.9 Hypertensive chronic kidney disease with stage 1 through stage 4 chronic kidney disease, or unspecified chronic kidney disease; E78.5 Hyperlipidemia, unspecified; E87.5 Hyperkalemia; K21.9 Gastro-esophageal reflux disease without esophagitis; Z87.891 Personal history of nicotine dependence; Z90.49 Acquired absence of other specified parts of digestive tract; Z95.2 Presence of prosthetic heart valve; Z11.59 Encounter for screening for other viral diseases

== ENCOUNTER → 2019-07-06 | Outpatient (CLI) | payer MEDICARE ==
[~2019-07-06] MED LIST changes: +ENOX100I3
== END ==
LOC: M LABSMTC 12:34
PROVIDERS: ATTEND Anesthesiology
DX: Z01.812 Encounter for preprocedural laboratory examination (principal); Z11.59 Encounter for screening for other viral diseases

== ENCOUNTER → 2019-07-08 | Outpatient (REF) | payer MEDICARE ==
[~2019-07-08] MED LIST changes: +PERCOCET PO
[2019-07-08 18:54] LABS: APPEARANCE, URINE TURBID (CLEAR); BACTERIA, URINE AUTO NEGATIVE (NEGATIVE); BILIRUBIN, URINE AUTO NEGATIVE (NEGATIVE); BLOOD, URINE BLOOD NEGATIVE (NEGATIVE); COLOR, URINE YELLOW (YELLOW); GLUCOSE, URINE (UA) AUTO 1+ mg/dL (NEGATIVE); KETONE, URINE AUTO NEGATIVE (NEGATIVE); LEUKOCYTE ESTERASE, URINE AUTO NEGATIVE (NEGATIVE); NITRITE, URINE AUTO NEGATIVE (NEGATIVE); PROTEIN, URINE AUTO 1+ mg/dL (NEGATIVE); RBC, URINE AUTO 0 /HPF (0-3); SPECIFIC GRAVITY URINE AUTO 1.028 (1.002-1.035); SQUAMOUS EPITHELIAL CELL UR AU 0 /HPF (0-6); WBC, URINE AUTO 0 /HPF (0-3)
== END ==
LOC: M SMT 17:05
PROVIDERS: ATTEND Nurse Practitioner Women's Health
DX: Z01.818 Encounter for other preprocedural examination (principal); N28.89 Other specified disorders of kidney and ureter

== ENCOUNTER 2019-07-09 08:58 | Outpatient (CLI) | payer MEDICARE ==
[~2019-07-09 08:58] MED LIST changes: -ENOX100I3; -PERCOCET PO
[2019-07-09] MEDS ORDERED: LIDOCAINE 2% 100MG/5ML SDV (FOR ANES.) ONE (08:59)
[2019-07-09] MEDS ORDERED: propofoL 200 MG/20 ML VIAL ONE (08:59)
[2019-07-09] MEDS ORDERED: MIDAZOLAM 5MG/ML 1ML VIAL (J2250 PER 1MG) As Ordered ONE (09:01)
[2019-07-09] MEDS ORDERED: fentaNYL 100 MCG/2 ML INJECTION (J3010) As Ordered ONE (09:02)
[2019-07-09] MEDS ORDERED: PROHANCE 279.3MG/ML 5ML VIAL As Ordered ONE (09:38)
[2019-07-09 12:25] VITALS: BP 127/65
--- NOTE | 2019-07-09 13:55 | REP ---
MRI KIDNEYS WITH AND WITHOUT CONTRAST: COMPARISON: CT 06/11/2019 Multiple sequences obtained in the axial and coronal planes prior to and following the intravenous administration of 10 mL ProHance. Left kidney demonstrates a large heterogeneous mass in the posterior upper pole. It measures approximately 6.6 x 6.1 x 7.4 cm. There are mixed areas of low and high signal on precontrast images, which are T2-weighted. There is diffuse heterogeneous enhancement. A similar smaller nodule is seen of the lower pool of the left kidney laterally with similar signal and enhancement characteristics, measuring approximately 2.4 x 2.5 x 2.3 cm. No other renal mass is seen bilaterally. There is no hydronephrosis bilaterally. Visualized liver, spleen, adrenal and pancreas are unremarkable. Gallbladder appears unremarkable. There is no evidence of dilatation of the common bile duct or pancreatic duct. I see no adenopathy or free fluid in the visualized abdomen. There is ill-defined diffuse enhancement of the perirenal fascia, more so posteriorly. IMPRESSION: Large solid heterogeneously enhancing renal mass upper pole left kidney with smaller mass lower pole left kidney. There is ill-defined diffuse enhancement of the perirenal fascia, more so posteriorly. Renal cell carcinoma is suspected, with perirenal infiltration. Electronically Signed by Edward Cruz MD 07/09/2019 05:04 P
== END 2019-07-09 12:45 | disposition home or self-care (01) ==
LOC: M RAD 08:58
PROVIDERS: ATTEND Nurse Practitioner Women's Health
DX: N28.89 Other specified disorders of kidney and ureter (principal)
CPT/HCPCS: 74183; A9576; J2250; J3010

== ENCOUNTER → 2019-07-11 | Outpatient (CLI) | payer MEDICARE ==
[~2019-07-11] MED LIST changes: +ENOX100I3
== END ==
LOC: M LABSMTC 10:01
PROVIDERS: ATTEND Anesthesiology
DX: Z01.818 Encounter for other preprocedural examination (principal); Z11.59 Encounter for screening for other viral diseases

== ENCOUNTER → 2019-07-21 | Outpatient (REF) | payer MEDICARE ==
[~2019-07-21] MED LIST changes: +PERCOCET PO
[2019-07-21 17:17] LABS: INR 3.64; PROTHROMBIN TIME 36.3 SECONDS (11.8-14.0)
== END ==
LOC: M LRY 15:44
PROVIDERS: ATTEND Family Medicine
DX: Z79.01 Long term (current) use of anticoagulants (principal)

== ENCOUNTER → 2019-07-27 | Outpatient (REF) | payer MEDICARE ==
[~2019-07-27] MED LIST changes: +ASPI81TA86 PO
[2019-07-27 11:25] LABS: INR 3.82; PROTHROMBIN TIME 37.7 SECONDS (11.8-14.0)
== END ==
LOC: M SFHCLERA 08:25
PROVIDERS: ATTEND Family Medicine
DX: Z79.01 Long term (current) use of anticoagulants (principal)

== ENCOUNTER → 2019-08-07 | Outpatient (REF) | payer MEDICARE ==
[~2019-08-07] MED LIST changes: -ASPI81TA86 PO
[2019-08-07 17:26] LABS: INR 3.4; PROTHROMBIN TIME 34.3 SECONDS (11.8-14.0)
== END ==
LOC: M SFHCLERA 12:37
PROVIDERS: ATTEND Family Medicine
DX: Z79.01 Long term (current) use of anticoagulants (principal)

== ENCOUNTER → 2019-08-17 | Outpatient (REF) | payer MEDICARE ==
[2019-08-17 11:53] LABS: INR 3.67; PROTHROMBIN TIME 36.5 SECONDS (11.8-14.0)
== END ==
LOC: M SFHCLERA 10:06
PROVIDERS: ATTEND Family Medicine
DX: Z79.01 Long term (current) use of anticoagulants (principal)
CPT/HCPCS: 36415; 85610; G0463

== ENCOUNTER → 2019-09-23 | Outpatient (REF) | payer MEDICARE ==
[~2019-09-23] MED LIST changes: +ASPI81TA86 PO
[2019-10-24 10:45] LABS: INR 4.27
== END ==
LOC: M SFHCPLAZ 07:24
PROVIDERS: ATTEND Family Medicine
DX: Z79.01 Long term (current) use of anticoagulants (principal)

== ENCOUNTER → 2019-11-04 | Outpatient (CLI) | payer MEDICARE ==
[2019-11-04 16:46] LABS: INR 2.72; PROTHROMBIN TIME 29.5 SECONDS (12.5-14.3)
== END ==
LOC: M WUC 12:54
PROVIDERS: ATTEND Family Medicine
DX: Z79.01 Long term (current) use of anticoagulants (principal)

== ENCOUNTER → 2020-01-15 | Outpatient (CLI) | payer MEDICARE ==
[2020-01-15 16:09] LABS: INR 3.1; PROTHROMBIN TIME 32.7 SECONDS (12.5-14.3)
== END ==
LOC: M WUC 11:54
PROVIDERS: ATTEND Family Medicine
DX: Z79.01 Long term (current) use of anticoagulants (principal)

== ENCOUNTER → 2020-02-11 | Outpatient (CLI) | payer MEDICARE | LOC: M LABSMTC 11:55 | PROVIDERS: ATTEND Family Medicine | DX: Z20.828 Contact with and (suspected) exposure to other viral communicable diseases (principal) ==

== ENCOUNTER → 2020-02-17 | Outpatient (CLI) | payer MEDICARE, OTHER ==
--- NOTE | 2020-02-17 09:41 | REP ---
INDICATION: RENAL CELL CA COMPARISON: 06/11/2019 TECHNIQUE: Axial noncontrast images of the abdomen with coronal and sagittal reformations. This CT examination was performed using the following dose reduction techniques: Automated exposure control, adjustment of mA and/or kv according to the patient's size, and use of iterative reconstruction technique. FINDINGS: Lung bases demonstrate stable chronic scarring along the anterior margin of the visualized right middle lobe. There is a 5 mm noncalcified nodule in the lateral aspect of the right middle lobe (image 9) which appears to be increased in size as compared to prior examination. A 3 mm nodule in the deep right sulcus is also identified (image 32). Liver, spleen, pancreas, gallbladder, bilateral adrenal glands and right kidney are normal by noncontrast evaluation. Patient is status post left nephrectomy. No obvious focal recurrence or significant findings in the left renal fossa noted. Visualized portions of the enteric system are normal. No ascites. No free air. No adenopathy. No focal inflammatory stranding. Abdominal aorta without aneurysm. Musculoskeletal structures are intact and without acute osseous abnormality. IMPRESSION: 1. 5 mm nodule in the right middle lobe and 3 mm nodule in the right deep sulcus. Short-term contrast-enhanced chest CT follow-up is recommended. 2. Status post left nephrectomy. No evidence for focal recurrence. No acute findings within the abdomen. <Electronically signed by iMgel Hughes > 02/17/20 0937
== END ==
LOC: M RAD 09:01
PROVIDERS: ATTEND Urology
DX: C64.9 Malignant neoplasm of unspecified kidney, except renal pelvis (principal)

== ENCOUNTER → 2020-03-02 | Outpatient (CLI) | payer OTHER ==
[2020-03-02 12:43] LABS: INR 1.28; PROTHROMBIN TIME 16.3 SECONDS (12.5-14.3)
== END ==
LOC: M WUC 10:43
PROVIDERS: ATTEND Family Medicine
DX: Z51.81 Encounter for therapeutic drug level monitoring (principal); Z79.01 Long term (current) use of anticoagulants

== ENCOUNTER → 2020-03-07 | Outpatient (CLI) | payer OTHER ==
[2020-03-07 11:47] LABS: INR 1.64; PROTHROMBIN TIME 19.8 SECONDS (12.5-14.3)
== END ==
LOC: M WUC 09:42
PROVIDERS: ATTEND Family Medicine
DX: Z79.01 Long term (current) use of anticoagulants (principal)

== ENCOUNTER 2020-03-12 14:34 | Emergency (ER) | payer OTHER ==
[~2020-03-12] VITALS: Ht 165.1 cm; Wt 102.3 kg
--- OUTSIDE RECORDS SUMMARY | 2020-03-12 14:43 | CCD ---
Author Author [facility] Organization [facility] Address Unknown Phone Unavailable Care Team Providers Care Seaming Inspector Name Role Phone Tristin Zapata Unavailable PROBLEMS Type Condition ICD9-CM Code [id number] Code Onset Dates Condition S tatus SNOMED Code Notes Problem Rectocele N81.6 Active 495397606 Problem Other specified postprocedural states Z98.890 Ac tive 276082428 Problem Allergic rhinitis, unspecified J30.9 Active 6 9061070 Problem Personal history of correcte d congenital malformations of heart and circulatory system Z87.74 Active 103873819 Problem Cystocele, unspecified cystocele location N81.10 Active 099833102 Problem History of tobacco use Z87.891 Active 612787132 9103 Problem Cerebrovascular accident (CVA) due to other mechanism I63.8 Active 811098520 Problem Generalized anxiety disorder F41.1 Active 218 21652 Problem Essential hypertension I10 Active 31463570 Problem Anxiety F41.9 Active 91599460 Problem Gastroesophageal reflux disease, esophagitis pre sence not specified K21.9 Active 948389642 Problem Anticoagulation monitoring, INR range 2.5-3.5 Z79. 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 Active 25863736 Problem Stage 3 chronic kidney disease N18.3 Active 4 75152099 Problem Abnormal laboratory test R89.9 Active 2568958 00 Problem Mechanical heart valve present Z95.2 Active 3 7283924125112 Problem Hyperlipidemia, unspecified hyperlipidemia type E7 8.5 Active 62997821 Problem Dyslipidemia E78.5 Active 027420172 Problem Influenza vaccination declined by patient Z28.21 Active 653273785 Problem Female cystocele N81.10 Active 846535936 Problem Stage 4 chronic kidney disease N18.4 Active 4 84386995 Problem Unspecified disturbances of skin sensation R20.9 Active 43802352 Problem Lung nodule R91.1 Active 520350606 Problem Essential (primary) hypertension I10 Active 82681638 Problem Mixed hyperlipidemia E78.2 Active 095677765 Problem 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 Active 2053571 03 Problem Renal mass, left N28.89 Active 736305288 Problem S/p nephrectomy Z90.5 Active 913699596 Problem Renal cell carcinoma of left kidney C64.2 Acti ve 442819889 ALLERGIES Allergen (clinical drug ingredient) Drug/Non Drug Allergy do cumented on EMR Reaction Allergy Type Onset Date Status Cristpoher inhibitor (for allergies use only) cough Drug All ergy Active ENCOUNTERS from 1962 to 2020-03-02 Encounter Location Date Provider Diagnosis [facility] [address] [place] [address] 15 Feb Tristin Zapata Renal cell carcinoma of left kidney C64. 2 ; Lung nodule R91.1 and S/p nephrectomy Z90.5 IMMUNIZATIONS Vaccine Route Administration Date Status Influenza (18 yrs & older) Flublok IM Intramuscular Mar 12, 2019 Administered Pneumococcal Adult 0.5mL (Pneumovax 23) IM Intramuscular April Administered Influenza (Pharmacy Given) Unknown Dec 23, 2017 Admin istered Influenza (6mo & up) Fluzone Unknown Nov 14, 2016 Adm inistered Influenza (6mo & up) Fluzone Unknown Mar 17, 2016 Adm inistered Influenza (6mo & up) Fluzone Unknown Jan 16, 2016 Ref used Influenza (6mo & up) Fluzone Unknown Feb 26, 2014 Ref used SOCIAL HISTORY Tobacco Use: Social History Observation Description Date Details (start date - stop date) Former Smoker Sex Assigned At : Social History Observation Description Sex Assigned At Unknown Education: Question Answer Notes Level of Education: College Audit Question Answer Notes Total Score: 0 Interpretation: Alcohol Education Language: Question Answer Notes Languages spoken: Barbadian Presybeterian: Question Answer Notes Presybeterian 13 Jew Sexual Hx: Question Answer Notes Had sex in the last 12 months (vaginal, oral, or anal)? No Have you ever had an STD? No Drug and Alcohol Question Answer Notes Total Score: 0 Interpretation: No problems reported Alcohol Screening: Question Answer Notes Did you have a drink containing alcohol in the past year? No Points 0 Interpretation Negative BMI Care Goal Follow-Up Question Answer Notes Above Normal BMI Follow-Up Dietary management educatio n, guidance, and counseling Tobacco Use: Question Answer Notes Are you a: former smoker How long has it been since you last smoked? 5-10 years REASON FOR REFERRAL No Information VITAL SIGNS Weight 224 lbs Feb, Height 65 in Feb, BMI 37.27 kg/m2 Feb, Heart Rate 59 /min Feb, Respiratory Rate 18 /min Feb, Temperature 98.5 degrees Fahrenheit Feb, Oximetry 97% Feb, Blood pressure systolic 126 mm Hg Feb, Blood pressure diastolic 62 mm Hg Feb, MEDICATIONS Medication SIG (Take, Route, Frequency, Duration) Notes Start Da te End Date Status Tylenol Extra Strength 500 MG 1 tablet as needed Orally every 6 hrs Active Coumadin 5 MG TAKE 1 TABLET BY MOUTH ONCE A DAY for 30 Active Amlodipine & Diet Manage Prod Not-Taking MiraLax - 1 packet mixed with 8 ounces of fluid Orally Onc e a day for 14 days Jul, Not-Taking Multivitamins 1 tablet Orally Once a day Active Simvastatin 20 MG 1 tablet in the evening Orally Once a day for 90 da ys Active AmLODIPine Besylate 5 MG 1 tablet Orally Once a day Not-Taking BuSpar 15mg 1 tablet Orally bid for 60 Active Allergy Relief 10 mg 1 tablet p.o. Once a day for 30 day(s) Active Oxycodone-Acetaminophen 5-325 MG 1 tablet as needed Or ally every 6 hours for moderate to severe pain Jul, Not-Taki ng Metoprolol Tartrate 25MG 1 tablet with food Orally Twice a day for 90 Active Coumadin 2.5 MG 1 tablet Orally as directed for 30 Days Apr, Not-Taking Warfarin Sodium 2.5 MG 1 tablet Orally Once a day for 30 day(s) Feb, Active Simvastatin 20 MG TAKE 1 TABLET BY MOUTH IN THE EVENING for 90 Active Metamucil - 1 packet with 8 ounces of liquid Orally Daily Jul, Active PROCEDURES No Information RESULTS No Results REASON FOR VISIT 6 mos imaging prior RCC MEDICAL (GENERAL) HISTORY Type Description Date Medical History HTN, goal 140/90 Medical History Stroke x 8 - left sided weak ness, numbness, blind spot in right eye Medical History Mitral valve disease Medical History anxiety Medical History hyperlipidemia Medical History body itching Medical History Tobacco abuse, in remission Medical History Rectocele Medical History Cystocele Medical History CVA (cerebral vascular accident) Medical History CVA, old, alterations of sensations Medical History GERD (gastroesophageal reflux disease) Medical History Anticoagulant long-term use Medical History tyrer cuzick score 8.23 % Surgical History appendectomy Surgical History LAVH 11/2010 Surgical History heart valve replacement 2010 Surgical History D&C hysteroscopy 06/2010 Surgical History BTL Surgical History colonoscopy tubular adenoma 03/2015 Surgical History nephrecotomy [facility] LEFT 07/14/2019 Hospitalization History surgery [facility] 07/14/2019- 0 Goals Section No Information Health Concerns No Information MEDICAL EQUIPMENT No Information MENTAL STATUS No Information FUNCTIONAL STATUS No Information ASSESSMENTS Encounter Date Diagnosis Assessment Notes Treatment Notes Treatm ent Clinical Notes Feb, Renal cell carcinoma of left kidney (ICD-10 - C6 4.2) - CT results discussed - schedule next surveillance CT in 6 months - will obtain a CT chest in 6 months as well given the lung nodules - f/u in 6 months Feb, Lung nodule (ICD-10 - R91.1) Feb, S/p nephrectomy (ICD-10 - Z90.5) PLAN OF TREATMENT Medication Medication Name Sig Start Date Stop Date Warfarin Sodium 2.5 MG 1 tablet Orally Once a day for 30 day(s) Feb, Treatment Notes Assessment Notes Clinical Notes Renal cell carcinoma of left kidney - CT results discussed- schedule next surveillance CT in 6 months- will obtain a CT chest in 6 months as well given the lung nodules- f/u in 6 months Future Test Test Name Order Date CT ABD w/IV Contrast Only 20200825 CT Chest with Contrast 20200825 Basic Metabolic Profile (BMP) 20200825 Next Appt Details 6 Months w/ CT chest and abdomen prior R tee:RCC, lung nodules Provider Name:Tristin Zapata, 01:30:00 PM, [address], [place], [address], Follow Up:6 Months w/ CT chest and abdomen priorRCC, lung nodules
--- OUTSIDE RECORDS SUMMARY | 2020-03-12 14:43 | CCD ---
Author Author [facility] Organization [facility] Address Unknown Phone Unavailable Care Team Providers Care Security Strategist Name Role Phone Randall Bernard Unavailable PROBLEMS Type Condition ICD9-CM Code [id number] Code Onset Dates Condition S tatus SNOMED Code Notes Problem Rectocele N81.6 Active 959577291 Problem Other specified postprocedural states Z98.890 Ac tive 664290294 Problem Allergic rhinitis, unspecified J30.9 Active 6 0309842 Problem Personal history of correcte d congenital malformations of heart and circulatory system Z87.74 Active 234796502 Problem Cystocele, unspecified cystocele location N81.10 Active 695600370 Problem History of tobacco use Z87.891 Active 535885778 9103 Problem Cerebrovascular accident (CVA) due to other mechanism I63.8 Active 368107720 Problem Generalized anxiety disorder F41.1 Active 218 93770 Problem Essential hypertension I10 Active 94080899 Problem Anxiety F41.9 Active 86250384 Problem Gastroesophageal reflux disease, esophagitis pre sence not specified K21.9 Active 152472180 Problem Anticoagulation monitoring, INR range 2.5-3.5 Z79. 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 Active 43521750 Problem Stage 3 chronic kidney disease N18.3 Active 4 79267331 Problem Abnormal laboratory test R89.9 Active 5614126 00 Problem Mechanical heart valve present Z95.2 Active 3 6962199859348 Problem Hyperlipidemia, unspecified hyperlipidemia type E7 8.5 Active 45972754 Problem Dyslipidemia E78.5 Active 279843900 Problem Influenza vaccination declined by patient Z28.21 Active 158174201 Problem Female cystocele N81.10 Active 590673588 Problem Stage 4 chronic kidney disease N18.4 Active 4 47788108 Problem Unspecified disturbances of skin sensation R20.9 Active 46134931 Problem Lung nodule R91.1 Active 326404125 Problem Essential (primary) hypertension I10 Active 71255303 Problem Mixed hyperlipidemia E78.2 Active 752293536 Problem 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 Active 6365418 03 Problem Renal mass, left N28.89 Active 049496381 Problem S/p nephrectomy Z90.5 Active 065093482 Problem Renal cell carcinoma of left kidney C64.2 Acti ve 214685016 ALLERGIES Allergen (clinical drug ingredient) Drug/Non Drug Allergy do cumented on EMR Reaction Allergy Type Onset Date Status Cristopher inhibitor (for allergies use only) cough Drug All ergy Active ENCOUNTERS from 1962 to 2020-03-08 Encounter Location Date Provider Diagnosis [facility] [address] [place] [address] Feb Randall Bernard Anticoagulation monitoring, INR range 2. 5-3.5 Z79.01 IMMUNIZATIONS Vaccine Route Administration Date Status Influenza (Pharmacy Given) Unknown Dec 23, 2017 Admin istered Influenza (18 yrs & older) Flublok IM Intramuscular Mar 12, 2019 Administered Pneumococcal Adult 0.5mL (Pneumovax 23) IM Intramuscular April Administered Influenza (6mo & up) Fluzone Unknown Nov [...] Education Language: Question Answer Notes Languages spoken: Azeri Rastafari: Question Answer Notes Rastafari 13 Evangelical Sexual Hx: Question Answer Notes Had sex [...] REASON FOR REFERRAL No Information VITAL SIGNS No information MEDICATIONS Medication SIG (Take, Route, Frequency, Duration) Notes Start Da te End Date Status Tylenol Extra Strength 500 MG 1 tablet as needed Orally every 6 hrs Active Allergy Relief 10 mg 1 tablet p.o. Once a day for 30 day(s) Active Coumadin 2.5 MG 1 tablet Orally as directed for 90 days Apr, Active Metoprolol Tartrate 25MG 1 tablet with food Orally Twice a day for 90 days Active Simvastatin 20 MG 1 tablet in the evening Orally Once a day for 90 da ys Active BuSpar 15mg 1 tablet Orally bid for 90 days Active AmLODIPine Besylate 5 MG 1 tablet Orally Once a day Not-Taking Simvastatin 20 MG TAKE 1 TABLET BY MOUTH IN THE EVENING for 90 Active MiraLax - 1 packet mixed with 8 ounces of fluid Orally Onc e a day for 14 days Jul, Not-Taking Oxycodone-Acetaminophen 5-325 MG 1 tablet as needed Or ally every 6 hours for moderate to severe pain Jul, Not-Taki ng Amlodipine & Diet Manage Prod Not-Taking Coumadin 5 MG TAKE 1 Tablet orally Wednesdays and Fridays for 30 days Active Warfarin Sodium 2.5 MG 1 tablet Orally Once a day for 30 day(s) Feb, Active Multivitamins 1 tablet Orally Once a day Active Metamucil - 1 packet with 8 ounces of liquid Orally Daily Jul, Active PROCEDURES No Information RESULTS No Results REASON FOR VISIT rx MEDICAL (GENERAL) HISTORY Type Description Date Medical [...] Medical History Anticoagulant long-term use Medical History genny briones score 8.23 % Surgical History appendectomy Surgical History LAVH 11/2010 Surgical History heart valve replacement 2010 Surgical History D&C hysteroscopy 06/2010 Surgical History BTL Surgical History colonoscopy tubular adenoma 03/2015 Surgical History nephrecotomy [facility] LEFT 07/14/2019 Hospitalization History surgery [facility] 07/14/2019- 0 Goals Section No Information Health Concerns No Information MEDICAL EQUIPMENT No Information MENTAL STATUS No Information FUNCTIONAL STATUS No Information ASSESSMENTS Encounter Date Diagnosis Assessment Notes Treatment Notes Treatm ent Clinical Notes Feb, Anticoagulation monitoring, INR range 2.5-3.5 (I CD-10 - Z79.01) PLAN OF TREATMENT Medication Medication Name Sig Start Date Stop Date BuSpar 15mg 1 tablet Orally bid for 90 days Warfarin Sodium 2.5 MG 1 tablet Orally Once a day for 30 day(s) Feb, Simvastatin 20 MG 1 tablet in the evening Orally Once a day for 90 days Metoprolol Tartrate 25MG 1 tablet with food Orally Twice a day f or 90 days Coumadin 5 MG TAKE 1 Tablet orally Wednesdays and Fridays for 30 days Coumadin 2.5 MG 1 tablet Orally as directed for 90 days Apr, Next Appt Details Provider Name:Cecile Quiroga, 03-09 08:30:00 AM, [address] [place], [address], Provider Name:Tristin Zapata, 01:30:00 PM, [address], [place], [address], Insurance Providers Payer Name Payer Address Payer Phone Insured Name Patient Relati onship to Insured Coverage Start Date Coverage End Date [employer] GOLD [address] [place] [phone] RICHARD GREENE self
--- OUTSIDE RECORDS SUMMARY | 2020-03-12 14:43 | CCD ---
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 Active 86806346 Problem History of tobacco use Z87.891 Active 863501877 9103 Problem Abnormal laboratory test R89.9 Active 7227567 00 Problem BMI 37.0-37.9, adult Z68.37 Active 062771327 Problem Essential hypertension I10 Active 50001163 Problem Stage 3 chronic kidney disease N18.3 Active 4 53442398 Problem Dyslipidemia E78.5 Active 370358602 Problem Generalized anxiety disorder F41.1 Active 218 04268 Problem Influenza vaccination declined by patient Z28.21 Active 350819696 Problem Renal cell carcinoma of left kidney C64.2 Acti ve 287267628 Problem Unspecified disturbances of skin sensation R20.9 Active 47953528 Problem Stage 4 chronic kidney disease N18.4 Active 4 33269206 Problem Essential (primary) hypertension I10 Active 44356689 Problem Mixed hyperlipidemia E78.2 Active 836382061 Problem Female cystocele N81.10 Active 993632201 Problem 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 Active 2426653 03 Problem Renal mass, left N28.89 Active 265573297 Problem S/p nephrectomy Z90.5 Active 679565545 ALLERGIES Allergen (clinical drug ingredient) Drug/Non Drug Allergy do cumented on EMR Reaction Allergy Type Onset Date Status Cristopher inhibitor (for allergies use only) cough Drug All ergy Active ENCOUNTERS from 1962 to 2020-02-10 Encounter Location Date Provider Diagnosis [address] [address] Jan, Randall Bernard IMMUNIZATIONS Vaccine Route Administration Date Status Influenza [...] Education Language: Question Answer Notes Languages spoken: Mohawk Islam: Question Answer Notes Islam 13 Shinto Sexual Hx: Question Answer Notes Had sex [...] Notes Start Da te End Date Status Simvastatin 20 MG 1 tablet in the evening Orally Once a day for 90 da ys Active Coumadin 2.5 MG 1 tablet Orally as directed for 30 Days Apr, Active Metoprolol Tartrate 25MG 1 tablet with food Orally Twice a day for 90 Active AmLODIPine Besylate 5 MG 1 tablet Orally Once a day Active BuSpar 15mg 1 tablet Orally bid for 60 Active MiraLax - 1 packet mixed with 8 ounces of fluid Orally Onc e a day for 14 days Jul, Not-Taking Multivitamins 1 tablet Orally Once a day Active Oxycodone-Acetaminophen 5-325 MG 1 tablet as needed Or ally every 6 hours for moderate to severe pain Jul, Active Amlodipine & Diet Manage Prod Not-Taking Tylenol Extra Strength 500 MG 1 tablet as needed Orally every 6 hrs Active Allergy Relief 10 mg 1 tablet p.o. Once a day for 30 day(s) Active Simvastatin 20 MG TAKE 1 TABLET BY MOUTH IN THE EVENING for 90 Active Metamucil - 1 packet with 8 ounces of liquid Orally Daily Jul, Active Coumadin 5 MG TAKE 1 TABLET BY MOUTH ONCE A DAY for 30 Active PROCEDURES No Information RESULTS No Results REASON FOR VISIT COVID symptoms MEDICAL (GENERAL) HISTORY Type Description Date Medical [...] Medical History Anticoagulant long-term use Medical History valarieer cuzick score 8.23 % Surgical History appendectomy Surgical History LAVH 11/2010 Surgical History heart valve replacement 2010 Surgical History D&C hysteroscopy 06/2010 Surgical History BTL Surgical History colonoscopy tubular adenoma 03/2015 Surgical History nephrecotomy [facility] LEFT 07/14/2019 Hospitalization History surgery [facility] 07/14/2019- 0 Goals Section No Information Health Concerns No Information MEDICAL EQUIPMENT No Information MENTAL STATUS No Information FUNCTIONAL STATUS No Information ASSESSMENTS No Information PLAN OF TREATMENT Medication Medication Name Sig Start Date Stop Date Metoprolol Tartrate 25MG 1 tablet with food Orally Twice a day f or 90 Simvastatin 20 MG TAKE 1 TABLET BY MOUTH IN THE EVENING for 90 Next Appt Details Provider Name:Tristin Zapata, 02:15:00 PM, [address], [place], [address], Insurance Providers Payer Name Payer Address Payer Phone Insured Name Patient Relati onship to Insured Coverage Start Date Coverage End Date MEDICARE COMPLETE UNITED HEALTHCARE [address] [address] [facility] [id number] RICHARD RANDALL self
--- OUTSIDE RECORDS SUMMARY | 2020-03-12 14:43 | CCD ---
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 Active 26345788 Problem Stage 3 chronic kidney disease N18.3 Active 4 89340847 Problem Abnormal laboratory test R89.9 Active 1724780 00 Problem Mechanical heart valve present Z95.2 Active 3 5358875339320 Problem Hyperlipidemia, unspecified hyperlipidemia type E7 8.5 Active 27120237 Problem Dyslipidemia E78.5 Active 986481897 Problem Influenza vaccination declined by patient Z28.21 Active 583617340 Problem Female cystocele N81.10 Active 420264263 Problem Stage 4 chronic kidney disease N18.4 Active 4 69350616 Problem Unspecified disturbances of skin sensation R20.9 Active 91580081 Problem Lung nodule R91.1 Active 696712135 Problem Essential (primary) hypertension I10 Active 93193205 Problem Mixed hyperlipidemia E78.2 Active 527347190 Problem 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 Active 5670522 03 Problem Renal mass, left N28.89 Active 894657367 Problem S/p nephrectomy Z90.5 Active 871123415 Problem Renal cell carcinoma of left kidney C64.2 Acti ve 154952145 ALLERGIES Allergen (clinical drug ingredient) Drug/Non Drug Allergy do cumented on EMR Reaction Allergy Type Onset Date Status Cristopher inhibitor (for allergies use only) cough Drug All ergy Active ENCOUNTERS from 1962 to 2020-03-05 Encounter Location Date Provider Diagnosis [facility] [address] [place] [address] Feb, Nyla Murphy Mixed hyperlipidemia E78.2 IMMUNIZATIONS Vaccine Route Administration Date Status Influenza [...] Education Language: Question Answer Notes Languages spoken: Jamaican Bahai: Question Answer Notes Bahai 13 Taoist Sexual Hx: Question Answer Notes Had sex [...] as needed Orally every 6 hrs Active Simvastatin 20 MG TAKE 1 TABLET BY MOUTH IN THE EVENING for 90 Active MiraLax - 1 packet mixed with 8 ounces of fluid Orally Onc e a day for 14 days Jul, Not-Taking Metoprolol Tartrate 25MG 1 tablet with food Orally Twice a day for 90 days Active Simvastatin 20 MG 1 tablet in the evening Orally Once a day for 90 da ys Active BuSpar 15mg 1 tablet Orally bid for 90 days Active AmLODIPine Besylate 5 MG 1 tablet Orally Once a day Not-Taking Coumadin 5 MG TAKE 1 TABLET BY MOUTH ONCE A DAY for 30 Active Multivitamins 1 tablet Orally Once a day Active Oxycodone-Acetaminophen 5-325 MG 1 tablet as needed Or ally every 6 hours for moderate to severe pain Jul, Not-Taki ng Allergy Relief 10 mg 1 tablet p.o. Once a day for 30 day(s) Active Coumadin 2.5 MG 1 tablet Orally as directed for 30 Days Apr, Not-Taking Warfarin Sodium 2.5 MG 1 tablet Orally Once a day for 30 day(s) Feb, Active Amlodipine & Diet Manage Prod Not-Taking Metamucil - 1 packet with 8 ounces of liquid Orally Daily Jul, Active PROCEDURES No Information RESULTS No Results REASON FOR VISIT refill MEDICAL (GENERAL) HISTORY Type Description Date Medical [...] colonoscopy tubular adenoma 03/2015 Surgical History nephrecotomy [facility] LEFT 07/14/2019 Hospitalization History surgery [facility] 07/14/2019- 0 Goals Section No Information Health Concerns No Information MEDICAL EQUIPMENT No Information MENTAL STATUS No Information FUNCTIONAL STATUS No Information ASSESSMENTS Encounter Date Diagnosis Assessment Notes Treatment Notes Treatm ent Clinical Notes Feb, Mixed hyperlipidemia (ICD-10 - E78.2) PLAN OF TREATMENT Medication Medication Name Sig [...] Twice a day f or 90 days Next Appt Details Provider Name:Tristin Zapata, 01:30:00 PM, [address], [place], [address], Insurance Providers Payer Name Payer Address Payer Phone Insured Name Patient Relati onship to Insured Coverage Start Date Coverage End Date JOSETTE DUNCAN [address] [address] [facility] [phone] RICHARD GREENE self
--- OUTSIDE RECORDS SUMMARY | 2020-03-12 14:43 | CCD ---
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 Active 78347629 Problem History of tobacco use Z87.891 Active 732739754 9103 Problem Abnormal laboratory test R89.9 Active 6724737 00 Problem BMI 37.0-37.9, adult Z68.37 Active 526856163 Problem Essential hypertension I10 Active 24113229 Problem Stage 3 chronic kidney disease N18.3 Active 4 12960361 Problem Dyslipidemia E78.5 Active 080055182 Problem Generalized anxiety disorder F41.1 Active 218 91397 Problem Influenza vaccination declined by patient Z28.21 Active 875868988 Problem Renal cell carcinoma of left kidney C64.2 Acti ve 543878181 Problem Unspecified disturbances of skin sensation R20.9 Active 54023239 Problem Stage 4 chronic kidney disease N18.4 Active 4 67792761 Problem Essential (primary) hypertension I10 Active 32392456 Problem Mixed hyperlipidemia E78.2 Active 337211567 Problem Female cystocele N81.10 Active 394038695 Problem 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 Active 7112708 03 Problem Renal mass, left N28.89 Active 859395965 Problem S/p nephrectomy Z90.5 Active 095924670 ALLERGIES Allergen (clinical drug ingredient) Drug/Non Drug Allergy do cumented on EMR Reaction Allergy Type Onset Date Status Cristopher inhibitor (for allergies use only) cough Drug All ergy Active ENCOUNTERS from 1962 to 2020-01-27 Encounter Location Date Provider Diagnosis [facility] [address] [place] [address] Jan Tristin Zapata IMMUNIZATIONS Vaccine Route Administration Date Status Influenza [...] Education Language: Question Answer Notes Languages spoken: Belgian Mormon: Question Answer Notes Mormon 13 Cheondoism Sexual Hx: Question Answer Notes Had sex [...] Notes Start Da te End Date Status Multivitamins 1 tablet Orally Once a day Active Oxycodone-Acetaminophen 5-325 MG 1 tablet as needed Or ally every 6 hours for moderate to severe pain Jul, Active AmLODIPine Besylate 5 MG 1 tablet Orally Once a day Active Coumadin 2.5 MG 1 tablet Orally as directed for 30 Days Apr, Active Metoprolol Tartrate 25MG 1 tablet with food Orally Twice a day for 90 Active Allergy Relief 10 mg 1 tablet p.o. Once a day for 30 day(s) Active MiraLax - 1 packet mixed with 8 ounces of fluid Orally Onc e a day for 14 days Jul, Not-Taking Metamucil - 1 packet with 8 ounces of liquid Orally Daily Jul, Active Coumadin 5 MG TAKE 1 TABLET BY MOUTH ONCE A DAY for 30 Active Simvastatin 20 MG 1 tablet in the evening Orally Once a day for 90 da ys Active Amlodipine & Diet Manage Prod Not-Taking BuSpar 15mg 1 tablet Orally bid for 60 Active Tylenol Extra Strength 500 MG 1 tablet as needed Orally every 6 hrs Active PROCEDURES No Information RESULTS No Results REASON FOR VISIT ct scan MEDICAL (GENERAL) HISTORY Type Description Date Medical [...] colonoscopy tubular adenoma 03/2015 Surgical History nephrecotomy [facility] LEFT 07/14/2019 Hospitalization History surgery [facility] 07/14/2019- 0 Goals Section No Information Health Concerns No Information MEDICAL EQUIPMENT No Information MENTAL STATUS No Information FUNCTIONAL STATUS No Information ASSESSMENTS No Information PLAN OF TREATMENT Medication Medication Name Sig Start Date Stop Date Metoprolol Tartrate 25MG 1 tablet with food Orally Twice a day f or 90 Next Appt Details Provider Name:Tristin Zapata, 02:15:00 PM, [address], [place], [address], Insurance Providers Payer Name Payer Address Payer Phone Insured Name Patient Relati onship to Insured Coverage Start Date Coverage End Date MEDICARE COMPLETE UNITED HEALTHCARE [address] [address] [facility] [id number] RICHARD RANDALL self
--- OUTSIDE RECORDS SUMMARY | 2020-03-12 14:43 | CCD ---
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 Active 97610199 Problem Stage 3 chronic kidney disease N18.3 Active 4 34445146 Problem Abnormal laboratory test R89.9 Active 7624788 00 Problem Mechanical heart valve present Z95.2 Active 3 4097816418771 Problem Hyperlipidemia, unspecified hyperlipidemia type E7 8.5 Active 60462310 Problem Dyslipidemia E78.5 Active 615979472 Problem Influenza vaccination declined by patient Z28.21 Active 346767925 Problem Female cystocele N81.10 Active 587630594 Problem Stage 4 chronic kidney disease N18.4 Active 4 07085089 Problem Unspecified disturbances of skin sensation R20.9 Active 59631693 Problem Lung nodule R91.1 Active 870741424 Problem Essential (primary) hypertension I10 Active 34919599 Problem Mixed hyperlipidemia E78.2 Active 982307202 Problem 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 Active 6859551 03 Problem Renal mass, left N28.89 Active 362261997 Problem S/p nephrectomy Z90.5 Active 841245934 Problem Renal cell carcinoma of left kidney C64.2 Acti ve 439074031 ALLERGIES Allergen (clinical drug ingredient) Drug/Non Drug Allergy do cumented on EMR Reaction Allergy Type Onset Date Status Cristopher inhibitor (for allergies use only) cough Drug All ergy Active ENCOUNTERS from 1962 to 2020-03-08 Encounter Location Date Provider Diagnosis [address] [address] Feb, Cecile Pedrazallister IMMUNIZATIONS Vaccine Route Administration Date Status Influenza [...] Education Language: Question Answer Notes Languages spoken: Belarusian Rastafari: Question Answer Notes Rastafari 13 Rastafari Sexual Hx: Question Answer Notes Had sex [...] Information RESULTS No Results REASON FOR VISIT Sinus MEDICAL (GENERAL) HISTORY Type Description Date Medical [...] History Anticoagulant long-term use Medical History genny briggsck score 8.23 % Surgical History appendectomy Surgical History LAVH 11/2010 Surgical History heart valve replacement 2010 Surgical History D&C hysteroscopy 06/2010 Surgical History BTL Surgical History colonoscopy tubular adenoma 03/2015 Surgical History nephrecotomy [facility] LEFT 07/14/2019 Hospitalization History surgery [facility] 07/14/2019- 0 Goals Section No Information [...] Details Provider Name:Cecile Quiroga, 03-09 08:30:00 AM, [address] [place], [address], Provider Name:Tristin Zapata, 01:30:00 PM, [address], [place], [address], Insurance Providers Payer Name Payer Address Payer Phone Insured Name Patient Relati onship to Insured Coverage Start Date Coverage End Date JOSETTE VILCHIS [address] [place] [phone] RICHARD GREENE self
--- OUTSIDE RECORDS SUMMARY | 2020-03-12 14:43 | CCD ---
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 Active 91455700 Problem History of tobacco use Z87.891 Active 120650039 9103 Problem Abnormal laboratory test R89.9 Active 8720314 00 Problem BMI 37.0-37.9, adult Z68.37 Active 904361430 Problem Essential hypertension I10 Active 30046021 Problem Stage 3 chronic kidney disease N18.3 Active 4 02412030 Problem Dyslipidemia E78.5 Active 271216318 Problem Generalized anxiety disorder F41.1 Active 218 70292 Problem Influenza vaccination declined by patient Z28.21 Active 526550771 Problem Renal cell carcinoma of left kidney C64.2 Acti ve 214066108 Problem Unspecified disturbances of skin sensation R20.9 Active 36175327 Problem Stage 4 chronic kidney disease N18.4 Active 4 69363175 Problem Essential (primary) hypertension I10 Active 05559852 Problem Mixed hyperlipidemia E78.2 Active 384788725 Problem Female cystocele N81.10 Active 964516296 Problem 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 Active 5477756 03 Problem Renal mass, left N28.89 Active 020327176 Problem S/p nephrectomy Z90.5 Active 168707798 ALLERGIES Allergen (clinical drug ingredient) Drug/Non Drug Allergy do cumented on EMR Reaction Allergy Type Onset Date Status Cristohper inhibitor (for allergies use only) cough Drug All ergy Active ENCOUNTERS from 1962 to 2020-01-26 Encounter Location Date Provider Diagnosis [address] [address] Dec, Randall Harmonett IMMUNIZATIONS Vaccine Route Administration Date Status Influenza [...] Education Language: Question Answer Notes Languages spoken: Swedish Jew: Question Answer Notes Jew 13 Hinduism Sexual Hx: Question Answer Notes Had sex [...] Information RESULTS No Results REASON FOR VISIT PT INR MEDICAL (GENERAL) HISTORY Type Description Date Medical [...] colonoscopy tubular adenoma 03/[address] [facility] LEFT 07/14/[address] [facility] 07/14/2019- 0 Goals Section No Information Health Concerns No Information MEDICAL EQUIPMENT No Information MENTAL STATUS No Information FUNCTIONAL STATUS No Information ASSESSMENTS No Information PLAN OF TREATMENT Medication Medication Name Sig Start Date Stop Date Metoprolol Tartrate 25MG 1 tablet with food Orally Twice a day f or 90 Next Appt Details Provider Name:Tristin Zapata, 02:15:00 PM, [address], [place], [address], Insurance Providers Payer Name Payer Address Payer Phone Insured Name Patient Relati onship to Insured Coverage Start Date Coverage End Date MEDICARE COMPLETE UNITED HEALTHCARE [address] [address] [facility] [phone] RICHARD RANDALL self
--- OUTSIDE RECORDS SUMMARY | 2020-03-12 14:43 | CCD ---
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 Active 09259663 Problem Stage 3 chronic kidney disease N18.3 Active 4 78933327 Problem Abnormal laboratory test R89.9 Active 5871806 00 Problem Mechanical heart valve present Z95.2 Active 3 9124931033871 Problem Hyperlipidemia, unspecified hyperlipidemia type E7 8.5 Active 35135520 Problem Dyslipidemia E78.5 Active 435542526 Problem Influenza vaccination declined by patient Z28.21 Active 997551151 Problem Female cystocele N81.10 Active 843044322 Problem Stage 4 chronic kidney disease N18.4 Active 4 26353915 Problem Unspecified disturbances of skin sensation R20.9 Active 22740234 Problem Lung nodule R91.1 Active 732536354 Problem Essential (primary) hypertension I10 Active 00012557 Problem Mixed hyperlipidemia E78.2 Active 974162155 Problem 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 [...] Education Language: Question Answer Notes Languages spoken: Congolese Pentecostalism: Question Answer Notes Pentecostalism 13 Druze Sexual Hx: Question Answer Notes Had sex [...] hours for moderate to severe pain Jul, Not-Damari ng Allergy Relief 10 mg 1 tablet [...] Information RESULTS No Results REASON FOR VISIT INR MEDICAL (GENERAL) HISTORY Type Description Date [...] History Anticoagulant long-term use Medical History valarieer deanciscojamil score 8.23 % Surgical History appendectomy Surgical History LAVH 11/2010 Surgical History heart valve replacement 2010 Surgical History D&C hysteroscopy 06/2010 Surgical History BTL Surgical History colonoscopy tubular adenoma 03/2015 Surgical History nephrecotomy [facility] LEFT 07/14/2019 Hospitalization History surgery [facility] 07/14/2019- 0 Goals Section No [...] Twice a day f or 90 days Future Test Test Name Order Date Basic Metabolic Profile (BMP) [id number] PT-INR [id number] Next Appt Details Provider Name:Tristin Zapata, 01:30:00 PM, [address], [place], [address], Insurance Providers Payer Name Payer Address Payer Phone Insured Name Patient Relati onship to Insured Coverage Start Date Coverage End Date [facility] [address] [place] [phone] RICHARD GREENE
--- OUTSIDE RECORDS SUMMARY | 2020-03-12 14:43 | CCD ---
Author Author [facility] Organization 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 Active 08976695 Problem Stage 3 chronic kidney disease N18.3 Active 4 54221215 Problem Abnormal laboratory test R89.9 Active 0313349 00 Problem Mechanical heart valve present Z95.2 Active 3 9061540275348 Problem Hyperlipidemia, unspecified hyperlipidemia type E7 8.5 Active 11332352 Problem Dyslipidemia E78.5 Active 236466404 Problem Influenza vaccination declined by patient Z28.21 Active 971303096 Problem Female cystocele N81.10 Active 117402711 Problem Stage 4 chronic kidney disease N18.4 Active 4 07453376 Problem Unspecified disturbances of skin sensation R20.9 Active 59674776 Problem Lung nodule R91.1 Active 520078882 Problem Essential (primary) hypertension I10 Active 31626978 Problem Mixed hyperlipidemia E78.2 Active 355480474 Problem 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 Active 6471444 03 Problem Renal mass, left N28.89 Active 358044980 Problem S/p nephrectomy Z90.5 Active 389978883 Problem Renal cell carcinoma of left kidney C64.2 Acti ve 378814051 ALLERGIES Allergen (clinical drug ingredient) Drug/Non Drug Allergy do cumented on EMR Reaction Allergy Type Onset Date Status Cristopher inhibitor (for allergies use only) cough Drug All ergy Active ENCOUNTERS from 1962 to 2020-03-08 Encounter Location Date Provider Diagnosis [facility] [address] [place] [address] Feb, Randall Bernard IMMUNIZATIONS Vaccine Route Administration Date [...] Education Language: Question Answer Notes Languages spoken: Nepali Hindu: Question Answer Notes Hindu 13 Nondenominational Sexual Hx: Question Answer Notes Had sex [...] History Anticoagulant long-term use Medical History tyrer deanzick score 8.23 % Surgical History appendectomy Surgical History LAVH 11/2010 Surgical History heart valve replacement 2010 Surgical History D&C hysteroscopy 06/2010 Surgical History BTL Surgical History colonoscopy tubular adenoma 03/2015 Surgical History nephrecotomy [facility] LEFT 07/14/2019 Hospitalization History surgery [facility] 07/14/2019- 0 Goals Section No Information [...] Details Provider Name:Cecile Quiroga, 03-[birth year] 08:30:00 AM, [address] [place], [address], Provider Name:Tristin Zapata, 01:30:00 PM, [address] [place], [address], Insurance Providers Payer Name Payer Address Payer Phone Insured Name Patient Relati onship to Insured Coverage Start Date Coverage End Date [facility] [address] [place] [phone] RICHARD GREENE self
--- OUTSIDE RECORDS SUMMARY | 2020-03-12 14:43 | CCD ---
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 Active 23394068 Problem Stage 3 chronic kidney disease N18.3 Active 4 54615543 Problem Abnormal laboratory test R89.9 Active 2160762 00 Problem Mechanical heart valve present Z95.2 Active 3 6196997814572 Problem Hyperlipidemia, unspecified hyperlipidemia type E7 8.5 Active 03426314 Problem Dyslipidemia E78.5 Active 945620285 Problem Influenza vaccination declined by patient Z28.21 Active 709777920 Problem Female cystocele N81.10 Active 346925195 Problem Stage 4 chronic kidney disease N18.4 Active 4 59483947 Problem Unspecified disturbances of skin sensation R20.9 Active 54632309 Problem Lung nodule R91.1 Active 622514130 Problem Essential (primary) hypertension I10 Active 95053352 Problem Mixed hyperlipidemia E78.2 Active 079632049 Problem 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 Active 1003559 03 Problem Renal mass, left N28.89 Active 339816280 Problem S/p nephrectomy Z90.5 Active 458445015 Problem Renal cell carcinoma of left kidney C64.2 Acti ve 118525209 ALLERGIES Allergen (clinical drug ingredient) Drug/Non Drug Allergy do cumented on EMR Reaction Allergy Type Onset Date Status Cristopher inhibitor (for allergies use only) cough Drug All ergy Active ENCOUNTERS from 1962 to 2020-03-02 Encounter Location Date Provider Diagnosis [address] [address] Feb, Randall Bernard IMMUNIZATIONS Vaccine Route Administration [...] Education Language: Question Answer Notes Languages spoken: Urdu Jainism: Question Answer Notes Jainism 13 Episcopalian Sexual Hx: Question Answer Notes Had sex [...] colonoscopy tubular adenoma 03/2015 Surgical History nephrecotomy [facility] LEFT 07/14/2019 Hospitalization History surgery [facility] 07/14/2019- 0 Goals Section No Information Health Concerns No Information MEDICAL EQUIPMENT No Information MENTAL STATUS No Information FUNCTIONAL STATUS No Information ASSESSMENTS No Information PLAN OF TREATMENT Medication Medication Name Sig Start Date Stop Date Warfarin Sodium 2.5 MG 1 tablet Orally Once a day for 30 day(s) Feb, Next Appt Details Provider Name:Tristin Zapata, 01:30:00 PM, [address], [place], [address],
--- OUTSIDE RECORDS SUMMARY | 2020-03-12 14:43 | CCD ---
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 Active 62253371 Problem Stage 3 chronic kidney disease N18.3 Active 4 58207282 Problem Abnormal laboratory test R89.9 Active 5143578 00 Problem Mechanical heart valve present Z95.2 Active 3 1295829177884 Problem Hyperlipidemia, unspecified hyperlipidemia type E7 8.5 Active 30845377 Problem Dyslipidemia E78.5 Active 990601895 Problem Influenza vaccination declined by patient Z28.21 Active 220729669 Problem Female cystocele N81.10 Active 478379726 Problem Stage 4 chronic kidney disease N18.4 Active 4 60410635 Problem Unspecified disturbances of skin sensation R20.9 Active 20125018 Problem Lung nodule R91.1 Active 612505062 Problem Essential (primary) hypertension I10 Active 51205863 Problem Mixed hyperlipidemia E78.2 Active 841060621 Problem 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 Active 9046500 03 Problem Renal mass, left N28.89 Active 197718603 Problem S/p nephrectomy Z90.5 Active 821313615 Problem Renal cell carcinoma of left kidney C64.2 Acti ve 495194993 ALLERGIES Allergen (clinical drug ingredient) Drug/Non Drug Allergy do cumented on EMR Reaction Allergy Type Onset Date Status Cristopher inhibitor (for allergies use only) cough Drug All ergy Active ENCOUNTERS from 1962 to 2020-03-09 Encounter Location Date Provider Diagnosis [facility] [address] [place] [address] Feb, Randall Bernard IMMUNIZATIONS Vaccine Route Administration [...] Education Language: Question Answer Notes Languages spoken: Romanian Muslim: Question Answer Notes Muslim 13 Islam Sexual Hx: Question Answer Notes Had sex [...] Notes Start Da te End Date Status Amlodipine & Diet Manage Prod Not-Taking Coumadin 2.5 MG 1 tablet Orally as directed for 90 days Apr, Active Metamucil - 1 packet with 8 ounces of liquid Orally Daily Jul, Active Tylenol Extra Strength 500 MG 1 tablet as needed Orally every 6 hrs Active Allergy Relief 10 mg 1 tablet p.o. Once a day for 30 day(s) Active Oxycodone-Acetaminophen 5-325 MG 1 tablet as needed Or ally every 6 hours for moderate to severe pain Jul, Not-Taki ng AmLODIPine Besylate 5 MG 1 tablet Orally Once a day Not-Taking Metoprolol Tartrate 25MG 1 tablet with food Orally Twice a day for 90 days Active Amoxicillin-Pot Clavulanate 875-125 MG 1 tablet Orally every 12 hrs for 7 day(s) Feb, Active Simvastatin 20 MG 1 tablet in the evening Orally Once a day for 90 da ys Active Coumadin 5 MG TAKE 1 Tablet orally Wednesdays and Fridays for 30 days Active Multivitamins 1 tablet Orally Once a day Active BuSpar 15mg 1 tablet Orally bid for 90 days Active MiraLax - 1 packet mixed with 8 ounces of fluid Orally Onc e a day for 14 days Jul, Not-Taking PROCEDURES No Information RESULTS No Results REASON FOR VISIT REFILL MEDICAL (GENERAL) HISTORY Type Description Date Medical [...] colonoscopy tubular adenoma 03/2015 Surgical History nephrecotomy [facility] LEFT 07/14/2019 Hospitalization History surgery [facility] 07/14/2019- 0 Goals Section No Information Health Concerns No Information MEDICAL EQUIPMENT No Information MENTAL STATUS No Information FUNCTIONAL STATUS No Information ASSESSMENTS No Information PLAN OF TREATMENT Medication Medication Name Sig Start Date Stop Date Amoxicillin-Pot Clavulanate 875-125 MG 1 tablet Orally every 12 hrs for 7 day(s) Feb, Coumadin 5 MG TAKE 1 Tablet orally Wednesdays and Fridays for 30 days Next Appt Details Provider Name:Tristin Zapata, 01:30:00 PM, [address], [place], [address], Insurance Providers Payer Name Payer Address Payer Phone Insured Name Patient Relati onship to Insured Coverage Start Date Coverage End Date [facility] [address] [address] [facility] [phone] RICHARD GREENE self
--- OUTSIDE RECORDS SUMMARY | 2020-03-12 14:44 | CCD ---
Author Author [facility] Organization [facility] Address Unknown Phone Unavailable Care Team Providers Care Elephant Keeper Name Role Phone Brynn ORTEGA MD Unavailable Unavailable Brynn ORTEGA MD Unavailable Unavailable Brynn ORTEGA MD Unavailable Unavailable Brynn ORTEGA MD Unavailable Unavailable Brynn ORTEGA MD Unavailable Unavailable Brynn ORTEGA MD Unavailable Unavailable Brynn ORTEGA MD Unavailable Unavailable Brynn ORTEGA MD Unavailable Unavailable Brynn ORTEGA MD Unavailable Unavailable Brynn ORTEGA MD Unavailable Unavailable Brynn ORTEGA MD Unavailable Unavailable Brynn ORTEGA MD Unavailable Unavailable Brynn ORTEGA MD Unavailable Unavailable Brynn ORTEGA MD Unavailable Unavailable Brynn ORTEGA MD Unavailable Unavailable Brynn ORTEGA MD Unavailable Unavailable AHMED, J KIRSTEN MD Unavailable Unavailable AHMED, J KIRSTEN MD Unavailable Unavailable AHMED, J KIRSTEN MD Unavailable Unavailable AHMED, J KIRSTEN MD Unavailable Unavailable AHMED, J KIRSTEN MD Unavailable Unavailable AHMED, J KIRSTEN MD Unavailable Unavailable AHMED, J KIRSTEN MD Unavailable Unavailable AHMED, J KIRSTEN MD Unavailable Unavailable AHMED, J KIRSTEN MD Unavailable Unavailable AHMED, J KIRSTEN MD Unavailable Unavailable AHMED, J KIRSTEN MD Unavailable Unavailable AHMED, J KIRSTEN MD Unavailable Unavailable AHMED, J KIRSTEN MD Unavailable Unavailable AHMED, J KIRSTEN MD Unavailable Unavailable AHMED, J KIRSTEN MD Unavailable Unavailable AHMED, J KIRSTEN MD Unavailable Unavailable AHMED, J KIRSTEN MD Unavailable Unavailable AHMED, J KIRSTEN MD Unavailable Unavailable AHMED, J KIRSTEN MD Unavailable Unavailable AHMED, J KIRSTEN MD Unavailable Unavailable AHMED, J KIRSTEN MD Unavailable Unavailable AHMED, J KIRSTEN MD Unavailable Unavailable AHMED, J KIRSTEN MD Unavailable Unavailable AHMED, J KIRSTEN MD Unavailable Unavailable AHMED, J KIRSTEN MD Unavailable Unavailable AHMED, J KIRSTEN MD Unavailable Unavailable AHMED, J KIRSTEN MD Unavailable Unavailable AHMED, J KIRSTEN MD Unavailable Unavailable AHMED, J KIRSTEN MD Unavailable Unavailable AHMED, J KIRSTEN MD Unavailable Unavailable AHMED, J KIRSTEN MD Unavailable Unavailable AHMED, J KIRSTEN MD Unavailable Unavailable AHMED, J KIRSTEN MD Unavailable Unavailable AHMED, J KIRSTEN MD Unavailable Unavailable AHMED, J KIRSTEN MD Unavailable Unavailable AHMED, J KIRSTEN MD Unavailable Unavailable AHMED, J KIRSTEN MD Unavailable Unavailable AHMED, J KIRSTEN MD Unavailable Unavailable AHMED, J KIRSTEN MD Unavailable Unavailable AHMED, J KIRSTEN MD Unavailable Unavailable AHMED, J KIRSTEN MD Unavailable Unavailable AHMED, J KIRSTEN MD Unavailable Unavailable AHMED, J KIRSTEN MD Unavailable Unavailable AHMED, J KIRSTEN MD Unavailable Unavailable AHMED, J KIRSTEN MD Unavailable Unavailable AHMED, J KIRSTEN MD Unavailable Unavailable AHMED, J KIRSTEN MD Unavailable Unavailable AHMED, J KIRSTEN MD Unavailable Unavailable AHMED, J KIRSTEN MD Unavailable Unavailable AHMED, J KIRSTEN MD Unavailable Unavailable AHMED, J KIRSTEN MD Unavailable Unavailable AHMED, J KIRSTEN MD Unavailable Unavailable AHMED, J KIRSTEN MD Unavailable Unavailable AHMED, J KIRSTEN MD Unavailable Unavailable AHMED, J KIRSTEN MD Unavailable Unavailable AHMED, J KIRSTEN MD Unavailable Unavailable AHMED, J KIRSTEN MD Unavailable Unavailable Brynn ORTEGA MD Unavailable Unavailable VERNELLMED Brynn KIRSTEN MD Unavailable Unavailable AHMED, J KIRSTEN MD Unavailable Unavailable AHMED, J KIRSTEN MD Unavailable Unavailable STEPHEN, M ERIN EDUCATION NURSE Unavailable Unavailable STEPHEN, M ERIN EDUCATION NURSE Unavailable Unavailable STEPHEN, M ERIN EDUCATION NURSE Unavailable Unavailable STEPHEN, M ERIN EDUCATION NURSE Unavailable Unavailable STEPHEN, M ERIN EDUCATION NURSE Unavailable Unavailable STEPHEN, M ERIN EDUCATION NURSE Unavailable Unavailable STEPHEN, M ERIN EDUCATION NURSE Unavailable Unavailable STEPHEN, M ERIN EDUCATION NURSE Unavailable Unavailable STEPHEN, M ERIN EDUCATION NURSE Unavailable Unavailable STEPHEN, M ERIN EDUCATION NURSE Unavailable Unavailable STEPHEN, M ERIN EDUCATION NURSE Unavailable Unavailable STEPHEN, M ERIN EDUCATION NURSE Unavailable Unavailable STEPHEN, M ERIN EDUCATION NURSE Unavailable Unavailable STEPHEN, M ERIN EDUCATION NURSE Unavailable Unavailable STEPHEN, M ERIN EDUCATION NURSE Unavailable Unavailable STEPHEN, M ERIN EDUCATION NURSE Unavailable Unavailable Re-disclosure Warning The records that you are about to access may contain information from federally-assisted alcohol or drug abuse programs. If such information is present, then the following federally mandated warning applies: This information has been disclosed to you from records protected by federal confidentiality rules (42 CFR part 2). The federal rules prohibit you from making any further disclosure of this information unless further disclosure is expressly permitted by the written consent of the person to whom it pertains or as otherwise permitted by 42 CFR part 2. A general authorization for the release of medical or other information is NOT sufficient for this purpose. The Federal rules restrict any use of the information to criminally investigate or prosecute any alcohol or drug abuse patient.The records that you are about to access may contain highly sensitive health information, the redisclosure of which is protected by Article 27-F of the [facility] Public Health law. If you continue you may have access to information: Regarding HIV / AIDS; Provided by facilities licensed or operated by the [facility] Office of Mental Health; or Provided by the [facility] Office for People With Developmental Disabilities. If such information is present, then the following [facility] mandated warning applies: This information has been disclosed to you from confidential records which are protected by state law. State law prohibits you from making any further disclosure of this information without the specific written consent of the person to whom it pertains, or as otherwise permitted by law. Any unauthorized further disclosure in violation of state law may result in a fine or long-term sentence or both. A general authorization for the release of medical or other information is NOT sufficient authorization for further disc losure. Allergies and Adverse Reactions Type Description Substance Reaction Status Data Source(s ) Cristopher inhibitor (for allergies use only) Cristopher inhibitor (for al lergies use only) Cristopher inhibitor (for allergies use only) cough Active e CW1 ([facility]) Cristopher inhibitor (for allergies use only) Cristopher inhibitor (for al lergies use only) Cristopher inhibitor (for allergies use only) cough Active e CW1 ([facility]) Cristopher inhibitor (for allergies use only) Cristopher inhibitor (for al lergies use only) Cristopher inhibitor (for allergies use only) cough Active e CW1 ([facility]) Cristopher inhibitor (for allergies use only) Cristopher inhibitor (for al lergies use only) Cristopher inhibitor (for allergies use only) cough Active e CW1 ([facility]) Cristopher inhibitor (for allergies use only) Cristopher inhibitor (for al lergies use only) Cristopher inhibitor (for allergies use only) cough Active e CW1 ([facility]) Encounters Encounter Providers Location Date Indications Data Source(s ) [place] [address] [facility] [address] 03/09/2020 12:00:00 AM EST eCW1 ([facility]) [place] [address] [facility] [place] [address] 03/08/2020 12:00:00 AM EST eCW1 ([facility]) [place] [address] [facility] [place] [address] 03/07/2020 12:00:00 AM EST eCW1 ([facility]) [place] [address] [facility] [place] [address] 03/07/2020 12:00:00 AM EST eCW1 ([facility]) [place] [address] [facility] [address] 03/03/2020 12:00:00 AM EST eCW1 ([facility]) Unknown [address] [facility] [place] [address] 03/02/2020 12:00:00 AM EST eCW1 ([facility]) [place] [address] [facility] [address] 03/01/2020 12:00:00 AM EST eCW1 ([facility]) Outpatient [address] [facility] [address] 02/26/2020 12:00:00 AM EST eCW1 ([facility]) [place] [address] [facility] [address] 02/10/2020 12:00:00 AM EST eCW1 ([facility]) [place] [address] [facility] [address] 01/25/2020 12:00:00 AM EST eCW1 ([facility]) [place] [address] [facility] [address] 01/18/2020 12:00:00 AM EST eCW1 ([facility]) [place] [address] [facility] [address] 01/11/2020 12:00:00 AM EST eCW1 ([facility]) [place] [address] [facility] [address] 12/28/2019 12:00:00 AM EST eCW1 ([facility]) [place] [address] [facility] [address] 12/25/2019 12:00:00 AM EST eCW1 ([facility]) Postop visit [address] [facility] [address] 08/25/2019 12:00:00 AM EDT eCW1 ([facility]) Out[place] [address] [facility] [address] 08/17/2019 12:00:00 AM EDT eCW1 ([facility]) [facility] [address] [facility] [address] 07/28/2019 12:00:00 AM EDT eCW1 ([facility]) [place] [address] [facility] [address] 07/27/2019 12:00:00 AM EDT [facility] [place] [address] [facility] [address] 07/21/2019 12:00:00 AM EDT eCW1 ([facility]) [place] [address] [facility] [address] 07/20/2019 12:00:00 AM EDT eCW1 ([facility]) [facility] [address] [place] [address] 07/20/2019 12:00:00 AM EDT eCW1 ([facility]) [facility] [address] [facility] [address] 07/13/2019 12:00:00 AM EDT eCW1 ([facility]) Unknown [address] [facility] [address] 07/13/2019 12:00:00 AM EDT eCW1 ([facility]) Outpatient 07/08/2019 12:00:00 AM [facility] Outpatient Attender: ERIN MITCHELL NP 07/07/2019 12:00:00 A M [facility] Outpatient Referrer: KIRSTEN ORTEGA MD 07/02/2019 12:02:31 PM EDT [facility] [address] [facility] [address] 07/02/2019 12:00:00 AM EDT eCW1 ([facility]) [facility] [address] [facility] [address] 06/30/2019 12:00:00 AM EDT eCW1 ([facility]) [facility] [address] [facility] [place] [address] 06/17/2019 12:00:00 AM EDT eCW1 ([facility]) [facility] [address] [facility] [address] 06/16/2019 12:00:00 AM EDT eCW1 ([facility]) [facility] [address] [facility] [address] 06/16/2019 12:00:00 AM EDT eCW1 ([facility]) [facility] [address] [facility] [address] 06/15/2019 12:00:00 AM EDT eCW1 ([facility]) [facility] [address] [facility] [address] 06/15/2019 12:00:00 AM EDT eCW1 ([facility]) [facility] [address] [facility] [address] 06/15/2019 12:00:00 AM EDT eCW1 ([facility]) [facility] [address] [facility] [address] 06/04/2019 12:00:00 AM EDT eCW1 ([facility]) [facility] [place] [address] [facility] [address] 06/03/2019 12:00:00 AM EDT eCW1 ([facility]) [facility] [place] [address] [facility] [address] 06/03/2019 12:00:00 AM EDT eCW1 ([facility]) [facility] [place] [address] [facility] [address] 05/22/2019 12:00:00 AM EDT eCW1 ([facility]) [facility] [place] [address] [facility] [address] 05/04/2019 12:00:00 AM EDT eCW1 ([facility] [address] [facility] [address] 04/27/2019 12:00:00 AM EDT eCW1 ([facility]) [facility] [address] [facility] [address] 04/17/2019 12:00:00 AM EST [facility]CW1 [facility] [place] [address] [facility] [address] 04/15/2019 12:00:00 AM EST eCW1 [facility] [address] [facility] [place] [address] 04/01/2019 12:00:00 AM EST eCW1 ([facility]) [facility] [place] [address] [facility] [address] 04/01/2019 12:00:00 AM EST eCW1 ([facility]) [facility] [address] [facility] [address] 03/25/2019 12:00:00 AM EST eCW1 ([facility]) [facility] [address] [facility] [address] 03/24/2019 12:00:00 AM EST eCW1 ([facility]) [facility] [address] [facility] [address] 03/12/2019 12:00:00 AM EST eCW1 ([facility]) [facility] [address] [facility] [address] 03/12/2019 12:00:00 AM EST eCW1 ([facility]) [facility] [address] [facility] [address] 02/13/2019 12:00:00 AM EST eCW1 ([facility]) [facility] [address] [facility] [address] 01/30/2019 12:00:00 AM EST eCW1 ([facility]) [facility] [address] [place] [address] 01/25/2019 12:00:00 AM EST eCW1 [facility] [place] Immunizations Vaccine Date Status Description Data Source(s) influenza, recombinant, quadrIvalent,injectable, prese rvative free 03/12/2019 08:27:00 AM EST completed [facility] influenza, recombinant, quadrIvalent,injectable, prese rvative free 03/12/2019 08:27:00 AM EST completed eCW1 [facility]) influenza, recombinant, quadrIvalent,injectable, prese rvative free 03/12/2019 08:27:00 AM EST completed eCW1 ([facility]) influenza, recombinant, quadrIvalent,injectable, prese rvative free 03/12/2019 08:27:00 AM EST completed eCW1 ([facility]) influenza, recombinant, quadrIvalent,injectable, prese rvative free 03/12/2019 08:27:00 AM EST completed eCW1 ([facility]) influenza, recombinant, quadrIvalent,injectable, prese rvative free 03/12/2019 08:27:00 AM EST completed eCW1 ([facility]) influenza, recombinant, quadrIvalent,injectable, prese rvative free 03/12/2019 08:27:00 AM EST completed eCW1 ([facility]) influenza, recombinant, quadrIvalent,injectable, prese rvative free 03/12/2019 08:27:00 AM EST completed eCW1 ([facility]) influenza, recombinant, quadrIvalent,injectable, prese rvative free 03/12/2019 08:27:00 AM EST completed eCW1 ([facility]) influenza, recombinant, quadrIvalent,injectable, prese rvative free 03/12/2019 08:27:00 AM EST completed eCW1 ([facility]) influenza, recombinant, quadrIvalent,injectable, prese rvative free 03/12/2019 08:27:00 AM EST completed eCW1 ([facility]) influenza, recombinant, quadrIvalent,injectable, prese rvative free 03/12/2019 08:27:00 AM EST completed eCW1 ([facility]) influenza, recombinant, quadrIvalent,injectable, prese rvative free 03/12/2019 08:27:00 AM EST completed eCW1 ([facility]) influenza, recombinant, quadrIvalent,injectable, prese rvative free 03/12/2019 08:27:00 AM EST completed eCW1 ([facility]) influenza, recombinant, quadrIvalent,injectable, prese rvative free 03/12/2019 08:27:00 AM EST completed eCW1 ([facility]) influenza, recombinant, quadrIvalent,injectable, prese rvative free 03/12/2019 08:27:00 AM EST completed eCW1 ([facility]) influenza, recombinant, quadrIvalent,injectable, prese rvative free 03/12/2019 08:27:00 AM EST completed eCW1 ([facility]) influenza, recombinant, quadrIvalent,injectable, prese rvative free 03/12/2019 08:27:00 AM EST completed eCW1 ([facility]) influenza, recombinant, quadrIvalent,injectable, prese rvative free 03/12/2019 08:27:00 AM EST completed eCW1 ([facility]) influenza, recombinant, quadrIvalent,injectable, prese rvative free 03/12/2019 08:27:00 AM EST completed eCW1 ([facility]) influenza, recombinant, quadrIvalent,injectable, prese rvative free 03/12/2019 08:27:00 AM EST completed eCW1 ([facility]) Medications Medication Brand Name Start Date Product Form Dose Route Admi nistrative Instructions Pharmacy Instructions Status Indications Reaction Description Data Source(s) Amoxicillin 875 MG / Clavulanate 125 MG Oral Tablet Amoxicillin-Pot Clavulanate 875-125 MG Amoxicillin-Pot Clavulanate 875-125 MG 03/09/2020 12:00:00 AM ES T 1.0 {tablet} active Amoxicillin-Pot Cla vulanate 875-125 MG eCW1 ([facility]) Warfarin Sodium 2.5 MG Oral Tablet Warfarin Sodium 2.5 MG 12:00:00 AM EST 1.0 {tablet} active Warfarin So dium 2.5 MG eCW1 ([facility]) Warfarin Sodium 2.5 MG Oral Tablet Warfarin Sodium 2.5 MG 12:00:00 AM EST 1.0 {tablet} active Warfarin So dium 2.5 MG eCW1 ([facility]) Warfarin Sodium 2.5 MG Oral Tablet Warfarin Sodium 2.5 MG 12:00:00 AM EST 1.0 {tablet} active Warfarin So dium 2.5 MG eCW1 ([facility]) Warfarin Sodium 2.5 MG Oral Tablet Warfarin Sodium 2.5 MG 12:00:00 AM EST 1.0 {tablet} active Warfarin So dium 2.5 MG eCW1 ([facility]) Warfarin Sodium 2.5 MG Oral Tablet Warfarin Sodium 2.5 MG 12:00:00 AM EST 1.0 {tablet} active Warfarin So dium 2.5 MG eCW1 ([facility]) Warfarin Sodium 2.5 MG Oral Tablet Warfarin Sodium 2.5 MG 12:00:00 AM EST 1.0 {tablet} active Warfarin So dium 2.5 MG eCW1 ([facility]) Warfarin Sodium 2.5 MG Oral Tablet Warfarin Sodium 2.5 MG 12:00:00 AM EST 1.0 {tablet} active Warfarin So dium 2.5 MG eCW1 ([facility]) MiraLax - UNK 07/20/2019 12:00:00 AM EDT 1 .0 {packet_mixed_with_8_ounces_of_fluid} suspended MiraLax - eCW1 ([facility]) MiraLax - UNK 07/20/2019 12:00:00 AM EDT 1 .0 {packet_mixed_with_8_ounces_of_fluid} suspended MiraLax - eCW1 ([facility]) MiraLax - UNK 07/20/2019 12:00:00 AM EDT 1 .0 {packet_mixed_with_8_ounces_of_fluid} suspended MiraLax - eCW1 ([facility]) MiraLax - UNK 07/20/2019 12:00:00 AM EDT 1 .0 {packet_mixed_with_8_ounces_of_fluid} suspended MiraLax - eCW1 ([facility]) POLYETHYLENE GLYCOL 3350 142 MG/ML Oral Solution [Miralax] M iraLax - MiraLax - 07/20/2019 12:00:00 AM EDT 1.0 {packet_mixed_with_8_ounces_of_fluid} active MiraLax - eCW1 ([facility]) MiraLax - UNK 07/20/2019 12:00:00 AM EDT 1 .0 {packet_mixed_with_8_ounces_of_fluid} suspended MiraLax - eCW1 ([facility]) POLYETHYLENE GLYCOL 3350 142 MG/ML Oral Solution [Miralax] M iraLax - MiraLax - 07/20/2019 12:00:00 AM EDT 1.0 {packet_mixed_with_8_ounces_of_fluid} suspended MiraLax - eCW1 ([facility]) MiraLax - UNK 07/20/2019 12:00:00 AM EDT 1 .0 {packet_mixed_with_8_ounces_of_fluid} suspended MiraLax - eCW1 ([facility]) MiraLax - UNK 07/20/2019 12:00:00 AM EDT 1 .0 {packet_mixed_with_8_ounces_of_fluid} suspended MiraLax - eCW1 ([facility]) MiraLax - UNK 07/20/2019 12:00:00 AM EDT 1 .0 {packet_mixed_with_8_ounces_of_fluid} suspended MiraLax - eCW1 ([facility]) MiraLax - UNK 07/20/2019 12:00:00 AM EDT 1 .0 {packet_mixed_with_8_ounces_of_fluid} suspended MiraLax - eCW1 ([facility]) MiraLax - UNK 07/20/2019 12:00:00 AM EDT 1 .0 {packet_mixed_with_8_ounces_of_fluid} suspended MiraLax - eCW1 ([facility]) MiraLax - UNK 07/20/2019 12:00:00 AM EDT 1 .0 {packet_mixed_with_8_ounces_of_fluid} suspended MiraLax - eCW1 ([facility]) MiraLax - UNK 07/20/2019 12:00:00 AM EDT 1 .0 {packet_mixed_with_8_ounces_of_fluid} suspended MiraLax - eCW1 ([facility]) POLYETHYLENE GLYCOL 3350 142 MG/ML Oral Solution [Miralax] M iraLax - MiraLax - 07/20/2019 12:00:00 AM EDT 1.0 {packet_mixed_with_8_ounces_of_fluid} active MiraLax - eCW1 ([facility]) POLYETHYLENE GLYCOL 3350 142 MG/ML Oral Solution [Miralax] M iraLax - MiraLax - 07/20/2019 12:00:00 AM EDT 1.0 {packet_mixed_with_8_ounces_of_fluid} suspended MiraLax - eCW1 ([facility]) MiraLax - UNK 07/20/2019 12:00:00 AM EDT 1 .0 {packet_mixed_with_8_ounces_of_fluid} suspended MiraLax - eCW1 ([facility]) POLYETHYLENE GLYCOL 3350 142 MG/ML Oral Solution [Miralax] M iraLax - MiraLax - 07/20/2019 12:00:00 AM EDT 1.0 {packet_mixed_with_8_ounces_of_fluid} suspended MiraLax - eCW1 ([facility]) MiraLax - UNK 07/20/2019 12:00:00 AM EDT 1 .0 {packet_mixed_with_8_ounces_of_fluid} suspended MiraLax - eCW1 ([facility]) Metamucil - UNK 07/18/2019 12:00:00 AM EDT active Metamucil - eCW1 ([facility]) Metamucil - UNK 07/18/2019 12:00:00 AM EDT active Metamucil - eCW1 ([facility]) Acetaminophen 325 MG / Oxycodone Hydroch loride 5 MG Oral Tablet Oxycodone- Acetaminophen 5-325 MG Oxycodone-Acetaminophen 5-325 MG 07/18/2019 12:00:00 A M EDT 1.0 {tablet_as_needed} suspended Oxycodone-Acetaminophen 5-325 MG eCW1 ([facility]) Metamucil - UNK 07/18/2019 12:00:00 AM EDT active Metamucil - eCW1 ([facility]) Acetaminophen 325 MG / Oxycodone Hydroch loride 5 MG Oral Tablet Oxycodone- Acetaminophen 5-325 MG Oxycodone-Acetaminophen 5-325 MG 07/18/2019 12:00:00 A M EDT 1.0 {tablet_as_needed} active O xycodone-Acetaminophen 5-325 MG eCW1 ([facility]) Acetaminophen 325 MG / Oxycodone Hydroch loride 5 MG Oral Tablet Oxycodone- Acetaminophen 5-325 MG Oxycodone-Acetaminophen 5-325 MG 07/18/2019 12:00:00 A M EDT 1.0 {tablet_as_needed} suspended Oxycodone-Acetaminophen 5-325 MG eCW1 ([facility]) Acetaminophen 325 MG / Oxycodone Hydroch loride 5 MG Oral Tablet Oxycodone- Acetaminophen 5-325 MG Oxycodone-Acetaminophen 5-325 MG 07/18/2019 12:00:00 A M EDT 1.0 {tablet_as_needed} suspended Oxycodone-Acetaminophen 5-325 MG eCW1 ([facility]) Acetaminophen 325 MG / Oxycodone Hydroch loride 5 MG Oral Tablet Oxycodone- Acetaminophen 5-325 MG Oxycodone-Acetaminophen 5-325 MG 07/18/2019 12:00:00 A M EDT 1.0 {tablet_as_needed} active O xycodone-Acetaminophen 5-325 MG eCW1 ([facility]) Metamucil - UNK 07/18/2019 12:00:00 AM EDT active Metamucil - eCW1 ([facility]) Metamucil - UNK 07/18/2019 12:00:00 AM EDT active Metamucil - eCW1 ([facility]) Acetaminophen 325 MG / Oxycodone Hydroch loride 5 MG Oral Tablet Oxycodone- Acetaminophen 5-325 MG Oxycodone-Acetaminophen 5-325 MG 07/18/2019 12:00:00 A M EDT 1.0 {tablet_as_needed} active O xycodone-Acetaminophen 5-325 MG eCW1 ([facility]) Metamucil - UNK 07/18/2019 12:00:00 AM EDT active Metamucil - eCW1 ([facility]) Acetaminophen 325 MG / Oxycodone Hydroch loride 5 MG Oral Tablet Oxycodone- Acetaminophen 5-325 MG Oxycodone-Acetaminophen 5-325 MG 07/18/2019 12:00:00 A M EDT 1.0 {tablet_as_needed} suspended Oxycodone-Acetaminophen 5-325 MG [facility]CW1 [facility] [place]) Metamucil - UNK 07/18/2019 12:00:00 AM EDT active Metamucil - eCW1 ([facility] [place]) Metamucil - UNK 07/18/2019 12:00:00 AM EDT active Metamucil - eCW1 ([facility] [place]) Acetaminophen 325 MG / Oxycodone Hydroch loride 5 MG Oral Tablet Oxycodone- Acetaminophen 5-325 MG Oxycodone-Acetaminophen 5-325 MG 07/18/2019 12:00:00 A M EDT 1.0 {tablet_as_needed} active O xycodone-Acetaminophen 5-325 MG eCW1 ([facility] [place]) Metamucil - UNK 07/18/2019 12:00:00 AM EDT active Metamucil - eCW1 ([facility] [place]) Metamucil - UNK 07/18/2019 12:00:00 AM EDT active Metamucil - eCW1 ([facility] [place]) Acetaminophen 325 MG / Oxycodone Hydroch loride 5 MG Oral Tablet Oxycodone- Acetaminophen 5-325 MG Oxycodone-Acetaminophen 5-325 MG 07/18/2019 12:00:00 A M EDT 1.0 {tablet_as_needed} active O xycodone-Acetaminophen 5-325 MG eCW1 ([facility] [place]) Acetaminophen 325 MG / Oxycodone Hydroch loride 5 MG Oral Tablet Oxycodone- Acetaminophen 5-325 MG Oxycodone-Acetaminophen 5-325 MG 07/18/2019 12:00:00 A M EDT 1.0 {tablet_as_needed} active O xycodone-Acetaminophen 5-325 MG eCW1 ([facility] [place]) Acetaminophen 325 MG / Oxycodone Hydroch loride 5 MG Oral Tablet Oxycodone- Acetaminophen 5-325 MG Oxycodone-Acetaminophen 5-325 MG 07/18/2019 12:00:00 A M EDT 1.0 {tablet_as_needed} suspended Oxycodone-Acetaminophen 5-325 MG eCW1 ([facility] [place]) Metamucil - UNK 07/18/2019 12:00:00 AM EDT active Metamucil - eCW1 ([facility] [place]) Metamucil - UNK 07/18/2019 12:00:00 AM EDT active Metamucil - eCW1 ([facility] [place]) Acetaminophen 325 MG / Oxycodone Hydroch loride 5 MG Oral Tablet Oxycodone- Acetaminophen 5-325 MG Oxycodone-Acetaminophen 5-325 MG 07/18/2019 12:00:00 A M EDT 1.0 {tablet_as_needed} active O xycodone-Acetaminophen 5-325 MG eCW1 ([facility] [place]) Metamucil - UNK 07/18/2019 12:00:00 AM EDT active Metamucil - eCW1 ([facility] [place]) Metamucil - UNK 07/18/2019 12:00:00 AM EDT active Metamucil - eCW1 ([facility] [place]) Acetaminophen 325 MG / Oxycodone Hydroch loride 5 MG Oral Tablet Oxycodone- Acetaminophen 5-325 MG Oxycodone-Acetaminophen 5-325 MG 07/18/2019 12:00:00 A M EDT 1.0 {tablet_as_needed} active O xycodone-Acetaminophen 5-325 MG eCW1 ([facility] [place]) Metamucil - UNK 07/18/2019 12:00:00 AM EDT active Metamucil - eCW1 ([facility] [place]) Metamucil - UNK 07/18/2019 12:00:00 AM EDT active Metamucil - eCW1 ([facility] [place]) Acetaminophen 325 MG / Oxycodone Hydroch loride 5 MG Oral Tablet Oxycodone- Acetaminophen 5-325 MG Oxycodone-Acetaminophen 5-325 MG 07/18/2019 12:00:00 A M EDT 1.0 {tablet_as_needed} active O xycodone-Acetaminophen 5-325 MG eCW1 ([facility] [place]) Acetaminophen 325 MG / Oxycodone Hydroch loride 5 MG Oral Tablet Oxycodone- Acetaminophen 5-325 MG Oxycodone-Acetaminophen 5-325 MG 07/18/2019 12:00:00 A M EDT 1.0 {tablet_as_needed} active O xycodone-Acetaminophen 5-325 MG eCW1 ([facility] [place]) Acetaminophen 325 MG / Oxycodone Hydroch loride 5 MG Oral Tablet Oxycodone- Acetaminophen 5-325 MG Oxycodone-Acetaminophen 5-325 MG 07/18/2019 12:00:00 A M EDT 1.0 {tablet_as_needed} suspended Oxycodone-Acetaminophen 5-325 MG eCW1 ([facility] [place]) Acetaminophen 325 MG / Oxycodone Hydroch loride 5 MG Oral Tablet Oxycodone- Acetaminophen 5-325 MG Oxycodone-Acetaminophen 5-325 MG 07/18/2019 12:00:00 A M EDT 1.0 {tablet_as_needed} active O xycodone-Acetaminophen 5-325 MG eCW1 ([facility] [place]) Metamucil - UNK 07/18/2019 12:00:00 AM EDT active Metamucil - eCW1 ([facility] [place]) Acetaminophen 325 MG / Oxycodone Hydroch loride 5 MG Oral Tablet Oxycodone- Acetaminophen 5-325 MG Oxycodone-Acetaminophen 5-325 MG 07/18/2019 12:00:00 A M EDT 1.0 {tablet_as_needed} suspended Oxycodone-Acetaminophen 5-325 MG eCW1 ([facility] [place]) Metamucil - UNK 07/18/2019 12:00:00 AM EDT active Metamucil - eCW1 ([facility] [place]) Acetaminophen 325 MG / Oxycodone Hydroch loride 5 MG Oral Tablet Oxycodone- Acetaminophen 5-325 MG Oxycodone-Acetaminophen 5-325 MG 07/18/2019 12:00:00 A M EDT 1.0 {tablet_as_needed} suspended Oxycodone-Acetaminophen 5-325 MG eCW1 ([facility] [place]) Metamucil - UNK 07/18/2019 12:00:00 AM EDT active Metamucil - eCW1 ([facility] [place]) 1 ML Enoxaparin sodium 100 MG/ML Prefilled Syringe [Lo venox] Lovenox 100 MG/ML Lovenox 100 MG/ML 07/08/2019 12:00:00 AM EDT 1.0 {ml} active Lovenox 100 MG/ML eCW1 ([facility] [place]) 1 ML Enoxaparin sodium 100 MG/ML Prefilled Syringe [Lo venox] Lovenox 100 MG/ML Lovenox 100 MG/ML 07/08/2019 12:00:00 AM EDT activ e 1 mL eCW1 ([facility] [place]) Warfarin Sodium 2.5 MG Oral Tablet [Coumadin] Coumadin 2.5 M G Coumadin 2.5 MG 04/17/2019 12:00:00 AM EST 1.0 {tablet} active Coumadin 2.5 MG eCW1 ([facility] [place]) Warfarin Sodium 2.5 MG Oral Tablet [Coumadin] Coumadin 2.5 M G Coumadin 2.5 MG 04/17/2019 12:00:00 AM EST active 1 tablet eCW1 ([facility] [place]) Coumadin 2.5 MG UNK 04/17/2019 12:00:00 AM EST 1.0 {tablet} active Coumadin 2.5 MG eCW1 ([facility] [place]) Warfarin Sodium 2.5 MG Oral Tablet [Coumadin] Coumadin 2.5 M G Coumadin 2.5 MG 04/17/2019 12:00:00 AM EST 1.0 {tablet} active Coumadin 2.5 MG eCW1 ([facility] [place]) Coumadin 2.5 MG UNK 04/17/2019 12:00:00 AM EST 1.0 {tablet} suspended Coumadin 2.5 MG eCW1 ([facility]) Warfarin Sodium 2.5 MG Oral Tablet [Coumadin] Coumadin 2.5 M G Coumadin 2.5 MG 04/17/2019 12:00:00 AM EST 1.0 {tablet} active Coumadin 2.5 MG eCW1 ([facility] [place]) Warfarin Sodium 2.5 MG Oral Tablet [Coumadin] Coumadin 2.5 M G Coumadin 2.5 MG 04/17/2019 12:00:00 AM EST 1.0 {tablet} active Coumadin 2.5 MG eCW1 ([facility] [place]) Coumadin 2.5 MG UNK 04/17/2019 12:00:00 AM EST 1.0 {tablet} active Coumadin 2.5 MG eCW1 ([facility] [place]) Coumadin 2.5 MG UNK 04/17/2019 12:00:00 AM EST 1.0 {tablet} active Coumadin 2.5 MG eCW1 ([facility] [place]) Coumadin 2.5 MG UNK 04/17/2019 12:00:00 AM EST 1.0 {tablet} suspended Coumadin 2.5 MG eCW1 ([facility]) Coumadin 2.5 MG UNK 04/17/2019 12:00:00 AM EST 1.0 {tablet} active Coumadin 2.5 MG eCW1 ([facility] [place]) Warfarin Sodium 2.5 MG Oral Tablet [Coumadin] Coumadin 2.5 M G Coumadin 2.5 MG 04/17/2019 12:00:00 AM EST 1.0 {tablet} active Coumadin 2.5 MG eCW1 ([facility] [place]) Warfarin Sodium 2.5 MG Oral Tablet [Coumadin] Coumadin 2.5 M G Coumadin 2.5 MG 04/17/2019 12:00:00 AM EST 1.0 {tablet} active Coumadin 2.5 MG eCW1 ([facility] [place]) Warfarin Sodium 2.5 MG Oral Tablet [Coumadin] Coumadin 2.5 M G Coumadin 2.5 MG 04/17/2019 12:00:00 AM EST active 1 tablet eCW1 ([facility] [place]) Warfarin Sodium 2.5 MG Oral Tablet [Coumadin] Coumadin 2.5 M G Coumadin 2.5 MG 04/17/2019 12:00:00 AM EST 1.0 {tablet} active Coumadin 2.5 MG eCW1 ([facility] [place]) Warfarin Sodium 2.5 MG Oral Tablet [Coumadin] Coumadin 2.5 M G Coumadin 2.5 MG 04/17/2019 12:00:00 AM EST 1.0 {tablet} active Coumadin 2.5 MG eCW1 ([facility] [place]) Coumadin 2.5 MG UNK 04/17/2019 12:00:00 AM EST 1.0 {tablet} suspended Coumadin 2.5 MG eCW1 ([facility]) Warfarin Sodium 2.5 MG Oral Tablet [Coumadin] Coumadin 2.5 M G Coumadin 2.5 MG 04/17/2019 12:00:00 AM EST active 1 tablet eCW1 ([facility] [place]) Warfarin Sodium 2.5 MG Oral Tablet [Coumadin] Coumadin 2.5 M G Coumadin 2.5 MG 04/17/2019 12:00:00 AM EST 1.0 {tablet} active Coumadin 2.5 MG eCW1 ([facility] [place]) Warfarin Sodium 2.5 MG Oral Tablet [Coumadin] Coumadin 2.5 M G Coumadin 2.5 MG 04/17/2019 12:00:00 AM EST 1.0 {tablet} active Coumadin 2.5 MG eCW1 ([facility] [place]) Coumadin 2.5 MG UNK 04/17/2019 12:00:00 AM EST 1.0 {tablet} suspended Coumadin 2.5 MG eCW1 ([facility]) Warfarin Sodium 2.5 MG Oral Tablet [Coumadin] Coumadin 2.5 M G Coumadin 2.5 MG 04/17/2019 12:00:00 AM EST 1.0 {tablet} active Coumadin 2.5 MG eCW1 ([facility] [place]) Coumadin 2.5 MG UNK 04/17/2019 12:00:00 AM EST 1.0 {tablet} active Coumadin 2.5 MG eCW1 ([facility] [place]) Warfarin Sodium 2.5 MG Oral Tablet [Coumadin] Coumadin 2.5 M G Coumadin 2.5 MG 04/17/2019 12:00:00 AM EST active 1 tablet eCW1 ([facility] [place]) Losartan Potassium 50 MG Oral Tablet Losartan Potassium 50 M G 03/12/2019 12:00:00 AM EST active 1 tablet eCW1 ([facility] [place]) Losartan Potassium 50 MG Oral Tablet Losartan Potassium 50 M G 03/12/2019 12:00:00 AM EST active 1 tablet eCW1 ([facility] [place]) Losartan Potassium 50 MG Oral Tablet Losartan Potassium 50 M G 03/12/2019 12:00:00 AM EST 1.0 {tablet} active Lo sartan Potassium 50 MG eCW1 ([facility] [place]) Losartan Potassium 50 MG Oral Tablet Losartan Potassium 50 M G 03/12/2019 12:00:00 AM EST active 1 tablet eCW1 ([facility] [place]) Losartan Potassium 50 MG Oral Tablet Losartan Potassium 50 M G 03/12/2019 12:00:00 AM EST active 1 tablet eCW1 ([facility] [place]) Insurance Providers Payer name Policy type / Coverage type Policy ID Covered alliance party ID Covered alliance party's relationship to de la cruz Policy [place] Plan Information HUMANA GOLD [id number] SP [id number] HUMANA GOLD [id number] SP [id number] MEDICARE COMPLETE [id number] SP [id number] MEDICARE [id number] MEDICARE COMPLETE [id number] SP [id number] MEDICARE A [id number] Self [id number] A MEDICARE COMPLETE [id number] SP [id number] ANS-Medicare Part B [id number] ANSI-Medicare Part B [id number] ANSI-Medicare Part B [id number] MEDICARE COMPLETE [id number] MEDICARE COMPLETE [id number] ANSI-Medicare Part B [id number] ANSI-Medicare Part B [id number] ANSI-Medicare Part B [id number] ANSI-Medicare Part B [id number] ANSI-Medicare Part B [id number] ANSI-Medicare Part B [id number] ANSI-Medicare Part B [id number] ANSI-Medicare Part B [id number] ANSI-Medicare Part B [id number] ANSI-Medicare Part B [id number] ANSI-Medicare Part B [id number] ANSI-Medicare Part B [id number] ANSI-Medicare Part B [id number] ANSI-Medicare Part B [id number] ANSI-Medicare Part B [id number] ANSI-Medicare Part B [id number] ANSI-Medicare Part B [id number] MEDICARE COMPLETE [id number] SP [id number] MEDICARE COMPLETE [id number] SP [id number] [facility] [id number] SP [id number] [facility] [id number] SP [id number] [place]/307 [id number] [place] [id number] [place]/307 [id number] [place] [id number] MEDICARE [id number] SP [id number] A [employer] BCBS B [id number] P [id number] MEDICARE C [id number] S [id number] A [place] PPO 302/307 [id number] [place] [id number] [place] 121/621 [id number] HU2 [id number] BLUE CROSS BLUE SHIELD -O/P [id number] MEDICARE -O/P [id number] 18 [id number] [employer] P [id number] S [id number] MEDICARE [id number] SP [id number] A BLUE CROSS BLUE SHIELD -O/P [id number] MEDICARE INPATIENT M [id number] S [id number] [place] 121/621 [id number] HU2 [id number] HUMANA TRADITIONAL [id number] SELF PAY UNAVAILABLE UNAVAILA BLE BCBS [place] 020/520 [id number] A M [id number] S [id number] A Problems, Conditions, and Diagnoses Code Display Name Description Problem Type Effective Dates Data Source(s) R91.1 Solitary nodule of lung Lung nodule Problem 02/26/2020 12:00:00 AM EST eCW1 ([facility] [place]) C64.2 Malignant tumor of kidney Renal cell carcinoma of left kidney Problem 07/28/2019 12:00:00 AM EDT eCW1 ([facility] [place]) 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 Problem 07/28/2019 12:00: 00 AM EDT eCW1 ([facility] [place]) N18.4 [id number] Stage 4 chronic kidney disease Problem 07/27/2019 12:00:00 AM EDT eCW1 ([facility] [place]) N28.89 Disorder of kidney and/or ureter Renal mass, left Prob sina 06/15/2019 12:00:00 AM EDT eCW1 ([facility] [place]) N28.89 Disorder of kidney and/or ureter Renal mass, left Prob sina 06/15/2019 12:00:00 AM EDT eCW1 ([facility] [place]) H54.10 [id number] Blindness and low vision Problem 03/12/2019 12:00:00 AM EST eCW1 ([facility] [place]) H54.10 [id number] Blindness and low vision Problem 03/12/2019 12:00:00 AM EST eCW1 ([facility] [place]) Surgeries/Procedures Procedure Description Date Indications Data Source(s) Office Visit, New Pt., Level 2 FC 06/15/2019 12:00:00 AM EDT eCW1 ([facility] [place]) Office Visit, New Pt., Level 3 PC 06/15/2019 12:00:00 AM EDT eCW1 ([facility]) PROTHROMBIN TIME 04/17/2019 12:00:00 AM EST eCW1 ([facility] [place]) Office Visit, Est Pt., Level 3 FC 03/12/2019 12:00:00 AM EST eCW1 ([facility]) Office Visit, Est Pt., Level 4 PC 03/12/2019 12:00:00 AM EST eCW1 ([facility] [place]) RIV4 VACC RECOMBINANT DNA IM 03/12/2019 12:00:00 AM ES T eCW1 ([facility] [place]) Administration of influenza virus vaccine 03/12/2019 1 2:00:00 AM EST eCW1 ([facility] [place]) Results ID Date Data Source [id number] 02/11/2020 12:00:00 PM EST [facility] Name Value Range Interpretation Code Description Data Aida rce(s) Supporting Document(s) SARS coronavirus 2 RNA [facility] This lab was ordered by [facility] and reported by [facility]. ID Date Data Source [id number] 08/18/2019 11:00:14 AM EDT eCW1 ([facility]) Name Value Range Interpretation Code Description Data Aida rce(s) Supporting Document(s) Prothrombin time (PT) 36.5 PROTHROMBIN TI ME eCW1 ([facility] [place]) INR in Platelet poor plasma by Coagulation assay 3.67 INR eCW1 ([facility] [place]) ID Date Data Source [id number] 07/11/2019 09:10:00 AM EDT [facility] Name Value Range Interpretation Code Description Data Aida rce(s) Supporting Document(s) SARS CORONAVIRUS 2 RNA [facility] This lab was ordered by [facility] and reported by [facility]. ID Date Data Source [id number] 07/06/2019 12:50:00 PM EDT [facility] Name Value Range Interpretation Code Description Data Aida rce(s) Supporting Document(s) SARS CORONAVIRUS 2 RNA [facility] This lab was ordered by [facility] and reported by [facility]. ID Date Data Source [id number] 07/02[facility]2019 [facility]:00[facility] [facility] PERFUSION MULTIPLE STUDY SPECTCLINICAL HISTORY: INDICATION: Essential (primary) hypertension.COMPARISON: None.TECHNIQUE: Informed consent: Yes.After informed consent was obtained and patient (females only) was ruled out, an intravenous line was established in the left AC. The patient performed treadmill exercise using a Giuliano protocol completing 06:00 min. The patient completed an estimated workload of 7 METS. Maximum predicted heart rate: 164 bpm. Target heart rate: 139 bpm. The heart rate was 80 bpm at baseline and alla to 140 bpm, which corresponds with 85% of the maximum predicted heart rate. Resting blood pressure was 132/84 mmHg and peak effect blood pressure was 170/84 mmHg. The blood pressure response during exercise was normal. During stress the patient experienced symptoms which included fatigue. Stress symptoms resolved during recovery. The stress test was terminated because of fatigue.MYOCARDIAL PERFUSION IMAGING PROCEDURE:The patient had myocardial perfusion imaging performed using a rest Tc-99m/stress Tc99m one day. Ungated tomographic myocardial perfusion imaging was performed at rest 45:00 min following the intravenous injection of 9.8 mCi of Tc99m Sestamibi. At peak exercise, the patient was injected intravenously with 29.0 mCi of Tc99m Sestamibi and exercise was continued for 01:00 min. Gated post stress tomographic imaging was performed 45:00 min after the stress isotope injection.REST, STRESS and RECOVERY ECG:Resting heart rate: 80 bpm. Resting blood pressure 132/84 mmHg. Normal sinus rhythm. RSR pattern in early precordial lead, suggestive of possible RV conduction delay, most likely normal variant. Per max HR, test non diagnostic for CAD. Stress heart rate: 139 bpm. Stress blood pressure: 170/84 mmHg. Non diagnostic EKG test. See nuclear imaging reporting.EKG stress test interpreted by Dr. Michelle Mayberry MD FACCFINDINGS: Stress SPECT myocardial tomographic images demonstrate decreased tracer accumulation inferiorly which extends both inferoseptally and inferolaterally. The left ventricular chamber is not dilated.Rest SPECT myocardial tomographic images demonstrate improved activity in the inferior septal segments closer to the base of the heart.Review of the gated images demonstrate mild decreased wall motion in the inferior wall and a question of paradoxical motion in the mid chamber of the septum toward the right ventricle. There is mild hypokinesia at the apex. There is good wall motion laterally and anteriorly. The left ventricular ejection fraction is calculated to be 53%.IM PRESSION: Findings suspicious for inferior wall infarct and ischemia with a question of paradoxical motion in the septum. Some evidence for todd-infarct ischemia and improved perfusion in the inferior septal portion of the inferior defect. The EKG pattern raised the possibly of right ventricular conduction delay. This might correspond.Decreased wall motion in the inferior wall with possible paradoxical motion in the septum. Echocardiography is recommended. The left ventricular ejection fraction is calculated to be 53%.Dictated by: SHAKILA ALCALA M.D. on 07/03/2019 Transcribed by: OSBALDO on <<TranscriptionDateTime1>>cc: Name Value Range Interpretation Code Description Data Aida rce(s) Supporting Document(s) ID Date Data Source PT & APTT 06/17/2019 12:00:00 AM EDT eCW1 ([facility]) Name Value Range Interpretation Code Description Data Aida rce(s) Supporting Document(s) 44.0 11.8-14.0 PROTHROMBIN TIME eCW1 ([facility]) 98.8 25.0-38.4 PARTIAL THROMBOPLASTIN TI ME eCW1 ([facility]) 4.63 INR eCW1 [facility] ID Date Data Source Basic Metabolic Profile (BMP) 06/17/2019 12:00:00 AM EDT eCW 1 ([facility]) Name Value Range Interpretation Code Description Data Aida rce(s) Supporting Document(s) 86 70-100 GLUCOSE, FASTING eCW1 ([facility]) 51.4 >51 GLOMERULAR FILTRATION RATE eCW 1 ([facility]) 139 136-145 SODIUM LEVEL eCW1 ([facility]) 24 7-18 BLOOD UREA NITROGEN eCW1 ([facility]) 1.16 0.55-1.30 CREATININE FOR GFR eCW1 ([facility]) 5.0 3.5-5.1 POTASSIUM SERUM eCW1 ([facility]) 27 21-32 CARBON DIOXIDE LEVEL eCW1 ([facility]) 106 98-107 CHLORIDE LEVEL eCW1 ([facility]) 10.0 8.5-10.1 CALCIUM LEVEL eCW1 ([facility]) ID Date Data Source CBC - Complete Blood Count 06/17/2019 12:00:00 AM EDT eCW1 ( [facility]) Name Value Range Interpretation Code Description Data Aida rce(s) Supporting Document(s) 5.9 4.0-10.0 WHITE BLOOD COUNT eCW1 ([facility]) 4.18 4.00-5.40 RED BLOOD COUNT eCW1 ([facility]) 88.5 80.0-96.0 MEAN CORPUSCULAR VOLUME e CW1 ([facility]) 37.0 36.0-47.0 HEMATOCRIT eCW1 ([facility]) 12.4 12.0-15.5 HEMOGLOBIN eCW1 ([facility]) 29.7 27.0-33.0 MEAN CORPUSCULAR HEMOGLOB IN eCW1 ([facility]) 33.5 32.0-36.5 MEAN CORPUSCULAR HGB CONC eCW1 ([facility]) 258 150-450 PLATELET COUNT, AUTOMATED eCW1 ([facility]) 12.3 11.5-14.5 RED CELL DISTRIBUTION WID TH eCW1 ([facility]) ID Date Data Source [id number] 06/11/2019 02:13:00 PM EDT [facility] Name Value Range Interpretation Code Description Data Aida rce(s) Supporting Document(s) SARS CORONAVIRUS 2 RNA [facility] This lab was ordered by [facility] and reported by [facility]. ID Date Data Source [id number] 03/12/2019 12:00:00 AM EST eCW1 ([facility]) Name Value Range Interpretation Code Description Data Aida rce(s) Supporting Document(s) Hemoglobin A1c/Hemoglobin.total in Blood 5.7 HEMOGLOBIN A1c eCW1 ([facility]) ID Date Data Source TSH 03/12/2019 12:00:00 AM EST eCW1 ([facility]) Name Value Range Interpretation Code Description Data Aida rce(s) Supporting Document(s) 4.160 0.358-3.740 THYROID STIMULATING HORM ONE eCW1 ([facility]) ID Date Data Source [id number] 03/12/2019 12:00:00 AM EST eCW1 ([facility]) Name Value Range Interpretation Code Description Data Aida rce(s) Supporting Document(s) Albumin/Creatinine [Mass Ratio] in Urine 28.9 MALB URINE SIEMENS eCW1 ([facility]) Microalbumin/Creatinine [Mass Ratio] in Urine 60.3 CREATININE, URINE eCW1 ([facility]) Microalbumin/Creatinine [Ratio] in Urine 47.9 0.0-30.0 AYDEE/CREAT RATIO eCW1 ([facility]) ID Date Data Source LIPID PANEL (CARDIAC RISK) 03/12/2019 12:00:00 AM EST eCW1 ( [facility]) Name Value Range Interpretation Code Description Data Aida rce(s) Supporting Document(s) Triglyceride [Mass/volume] in Serum or Plasma by calculation 163 <150 TRIGLYCERIDES LEVEL eCW1 ([facility]) Cholesterol in LDL [Mass/volume] in Serum or Plasma by calculation 101 <100 LDL CHOLESTEROL eCW1 ([facility]) Cholesterol [Moles/volume] in Serum or Plasma 167 <200 CHOLESTEROL LEVEL W1 ([facility]) 134 NON-HDL-C eCW1 ([facility]) Cholesterol in HDL [Moles/volume] in Serum or Plasma 33 >40 HDL CHOLESTEROL eCW1 ([facility]) 5.060 <5 CHOLESTEROL RISK RATIO eCW1 ([facility]) ID Date Data Source Comprehensive Metabolic Profile (CMP) 03/12/2019 12:00:00 AM EST eCW1 ([facility]) Name Value Range Interpretation Code Description Data Aida rce(s) Supporting Document(s) 29 7-18 BLOOD UREA NITROGEN eCW1 ([facility]) 104 70-100 GLUCOSE, FASTING eCW1 ([facility]) 1.21 0.55-1.30 CREATININE FOR GFR eCW1 ([facility]) 141 136-145 SODIUM LEVEL eCW1 ([facility]) 5.3 3.5-5.1 POTASSIUM SERUM eCW1 ([facility]) 49.0 >51 GLOMERULAR FILTRATION RATE eCW 1 ([facility]) 111 98-107 CHLORIDE LEVEL eCW1 ([facility]) 25 21-32 CARBON DIOXIDE LEVEL eCW1 ([facility]) 50 12-78 ALT/SGPT eCW1 ([facility]) 37 7-37 AST/SGOT eCW1 ([facility]) 8.6 8.5-10.1 CALCIUM LEVEL eCW1 ([facility]) 0.8 0.2-1.0 BILIRUBIN,TOTAL eCW1 ([facility]) 6.4 6.4-8.2 TOTAL PROTEIN eCW1 ([facility]) 3.3 3.2-5.2 ALBUMIN eCW1 ([facility]) 88 45-117 ALKALINE PHOSPHATASE eCW1 ([facility]) 1.06 1.00-1.93 ALBUMIN/GLOBULIN RATIO eCW1 ([facility]) ID Date Data Source CBC with Differential 03/12/2019 12:00:00 AM EST eCW1 ([facility]) Name Value Range Interpretation Code Description Data Aida rce(s) Supporting Document(s) 4.45 4.00-5.40 RED BLOOD COUNT eCW1 ([facility]) 5.7 4.0-10.0 WHITE BLOOD COUNT eCW1 ([facility]) 13.1 12.0-15.5 HEMOGLOBIN eCW1 ([facility]) 29.4 27.0-33.0 MEAN CORPUSCULAR HEMOGLOB IN eCW1 ([facility]) 41.4 36.0-47.0 HEMATOCRIT eCW1 ([facility]) 93.0 80.0-96.0 MEAN CORPUSCULAR VOLUME e CW1 ([facility]) 150 150-450 PLATELET COUNT, AUTOMATED eCW1 ([facility]) 66.9 36.0-66.0 NEUTROPHILS % eCW1 ([facility]) 12.1 11.5-14.5 RED CELL DISTRIBUTION WID TH eCW1 ([facility]) 31.6 32.0-36.5 MEAN CORPUSCULAR HGB CONC eCW1 ([facility]) 20.6 24.0-44.0 LYMPH % eCW1 ([facility]) 7.4 0.0-5.0 MONO % eCW1 ([facility]) 0.7 0.0-1.0 BASO % eCW1 ([facility]) 4.2 0.0-3.0 EOS % eCW1 ([facility]) 0.2 0.0-0.5 EOS # eCW1 ([facility]) 3.8 1.5-8.5 NEUTROPHILS # eCW1 ([facility]) 1.2 1.5-5.0 LYMPH # eCW1 ([facility]) 0.4 0.0-0.8 MONO # eCW1 ([facility]) 0.0 0.0-0.2 BASO # eCW1 ([facility]) Procedure Social History Code Duration Value Status Description Data Source(s ) Smoking 03/09/2020 12:00:00 AM EST Former Smoker completed Former Smoker eCW1 ([facility]) Smoking 02/26/2020 12:00:00 AM EST Former Smoker completed Former Smoker eCW1 ([facility]) Smoking 02/26/2020 12:00:00 AM EST Former Smoker completed Former Smoker eCW1 ([facility]) Smoking 02/26/2020 12:00:00 AM EST Former Smoker completed Former Smoker eCW1 ([facility]) Smoking 02/26/2020 12:00:00 AM EST Former Smoker completed Former Smoker eCW1 ([facility]) Smoking 02/26/2020 12:00:00 AM EST Former Smoker completed Former Smoker eCW1 ([facility]) Smoking 02/26/2020 12:00:00 AM EST Former Smoker completed Former Smoker eCW1 ([facility]) Smoking 02/26/2020 12:00:00 AM EST Former Smoker completed Former Smoker eCW1 ([facility]) Smoking 08/25/2019 12:00:00 AM EDT Former Smoker completed Former Smoker eCW1 ([facility]) Smoking 08/25/2019 12:00:00 AM EDT Former Smoker completed Former Smoker eCW1 ([facility]) Smoking 08/25/2019 12:00:00 AM EDT Former Smoker completed Former Smoker eCW1 ([facility]) Smoking 08/25/2019 12:00:00 AM EDT Former Smoker completed Former Smoker eCW1 ([facility]) Smoking 08/25/2019 12:00:00 AM EDT Former Smoker completed Former Smoker eCW1 ([facility]) Smoking 08/25/2019 12:00:00 AM EDT Former Smoker completed Former Smoker eCW1 ([facility]) Smoking 08/25/2019 12:00:00 AM EDT Former Smoker completed Former Smoker eCW1 ([facility]) Smoking 08/25/2019 12:00:00 AM EDT Former Smoker completed Former Smoker eCW1 ([facility]) Smoking 07/27/2019 12:00:00 AM EDT Former Smoker completed Former Smoker eCW1 ([facility]) Smoking 06/16/2019 12:00:00 AM EDT Former Smoker completed Former Smoker eCW1 ([facility]) Smoking 06/16/2019 12:00:00 AM EDT Former Smoker completed Former Smoker eCW1 ([facility]) Smoking 06/16/2019 12:00:00 AM EDT Former Smoker completed Former Smoker eCW1 ([facility]) Vital Signs ID Date Data Source UNK Name Value Range Interpretation Code Description Data Source(s) Diastolic blood pressure 62 mm[Hg] 62 mm[Hg] eCW1 ([facility]) Systolic blood pressure 126 mm[Hg] 126 mm[Hg] e CW1 ([facility]) Body temperature 98.5 [degF] 98.5 [degF] eCW1 ( [facility]) Respiratory rate 18 /min 18 /min eCW1 ([facility]) Heart rate 59 /min 59 /min eCW1 ([facility]) Body mass index (BMI) [Ratio] 37.27 kg/m2 37.27 kg/m2 W1 ([facility]) Body height 65 [in_i] 65 [in_i] eCW1 ([facility]) Body weight 224 [lb_av] 224 [lb_av] eCW1 ([facility]) Diastolic blood pressure mm[Hg] eCW1 ([facility]) Systolic blood pressure 122 mm[Hg] 122 mm[Hg] e CW1 ([facility]) Body temperature 97.4 [degF] 97.4 [degF] eCW1 ( [facility]) Respiratory rate 18 /min 18 /min eCW1 ([facility]) Heart rate 61 /min 61 /min eCW1 ([facility]) Body mass index (BMI) [Ratio] 36.44 kg/m2 36.44 kg/m2 W1 ([facility]) Body height 65 [in_i] 65 [in_i] eCW1 ([facility]) Body weight 219 [lb_av] 219 [lb_av] eCW1 ([facility]) Diastolic blood pressure 74 mm[Hg] 74 mm[Hg] eCW1 ([facility]) Systolic blood pressure 129 mm[Hg] 129 mm[Hg] e CW1 ([facility]) Body temperature 98.3 [degF] 98.3 [degF] eCW1 ( [facility]) Respiratory rate 18 /min 18 /min eCW1 ([facility]) Heart rate 68 /min 68 /min eCW1 ([facility]) Body mass index (BMI) [Ratio] 36.27 kg/m2 36.27 kg/m2 eCW1 ([facility]) Body height 65 [in_i] 65 [in_i] eCW1 ([facility]) Body weight 218 [lb_av] 218 [lb_av] eCW1 ([facility]) Diastolic blood pressure 90 mm[Hg] 90 mm[Hg] eCW1 ([facility]) Systolic blood pressure 150 mm[Hg] 150 mm[Hg] e CW1 ([facility]) Body temperature 98.1 [degF] 98.1 [degF] eCW1 ( [facility]) Respiratory rate 18 /min 18 /min eCW1 ([facility]) Heart rate 76 /min 76 /min eCW1 ([facility]) Body mass index (BMI) [Ratio] 36.61 kg/m2 36.61 kg/m2 eCW1 ([facility]) Body height 65 [in_us] 65 [in_us] eCW1 ([facility]) Body weight Measured 220 [lb_av] 220 [lb_av] eC W1 ([facility]) Body mass index (BMI) [Ratio] 37.01 kg/m2 37.01 kg/m2 eCW1 ([facility]) Body height 65 [in_us] 65 [in_us] eCW1 ([facility]) Body weight Measured 222.4 [lb_av] 222.4 [lb_av ] eCW1 ([facility]) Diastolic blood pressure 85 mm[Hg] 85 mm[Hg] eCW1 ([facility]) Systolic blood pressure 150 mm[Hg] 150 mm[Hg] e CW1 ([facility]) Body temperature 96.8 [degF] 96.8 [degF] eCW1 ( [facility]) Respiratory rate 18 /min 18 /min eCW1 ([facility]) Heart rate 75 /min 75 /min eCW1 ([facility]) Diastolic blood pressure 72 mm[Hg] 72 mm[Hg] eCW1 ([facility]) Systolic blood pressure 146 mm[Hg] 146 mm[Hg] e CW1 ([facility]) Body temperature 98.8 [degF] 98.8 [degF] eCW1 ( [facility]) Respiratory rate 18 /min 18 /min eCW1 ([facility]) Heart rate 58 /min 58 /min eCW1 ([facility]) Body mass index (BMI) [Ratio] 37.27 kg/m2 37.27 kg/m2 eCW1 ([facility]) Body height 65 [in_us] 65 [in_us] eCW1 ([facility]) Body weight Measured 224 [lb_av] 224 [lb_av] eC W1 ([facility]) Diastolic blood pressure 53 mm[Hg] 53 mm[Hg] eCW1 ([facility]) Systolic blood pressure 99 mm[Hg] 99 mm[Hg] e CW1 ([facility]) Body temperature 97.1 [degF] 97.1 [degF] eCW1 ( [facility]) Respiratory rate 18 /min 18 /min eCW1 ([facility]) Heart rate 66 /min 66 /min eCW1 ([facility]) Body mass index (BMI) [Ratio] 36.47 kg/m2 36.47 kg/m2 eCW1 ([facility]) Body height 65 [in_us] 65 [in_us] eCW1 ([facility]) Body weight Measured 219.2 [lb_av] 219.2 [lb_av ] eCW1 ([facility]) Diastolic blood pressure 72 mm[Hg] 72 mm[Hg] eCW1 ([facility]) Systolic blood pressure 121 mm[Hg] 121 mm[Hg] e CW1 ([facility]) Body temperature 99.2 [degF] 99.2 [degF] eCW1 ( [facility]) Respiratory rate 18 /min 18 /min eCW1 ([facility]) Heart rate 70 /min 70 /min eCW1 ([facility]) Body mass index (BMI) [Ratio] 37.27 kg/m2 37.27 kg/m2 eCW1 ([facility]) Body height 65 [in_us] 65 [in_us] eCW1 ([facility]) Body weight Measured 224 [lb_av] 224 [lb_av] eC W1 ([facility]) Patient Treatment Plan of Care Planned Activity Planned Date Details Description Data Source (s) Amoxicillin 875 MG / Clavulanate 125 MG Oral Tablet 03/09/19 12:00:00 AM EST eCW1 ([facility]) Warfarin Sodium 2.5 MG Oral Tablet 03/02/2020 12:00:00 AM EST eCW1 ([facility]) Warfarin Sodium 2.5 MG Oral Tablet 03/02/2020 12:00:00 AM EST eCW1 ([facility]) Warfarin Sodium 2.5 MG Oral Tablet 03/02/2020 12:00:00 AM EST eCW1 ([facility]) Warfarin Sodium 2.5 MG Oral Tablet 03/02/2020 12:00:00 AM EST eCW1 ([facility]) Warfarin Sodium 2.5 MG Oral Tablet 03/02/2020 12:00:00 AM EST eCW1 ([facility]) Warfarin Sodium 2.5 MG Oral Tablet 03/02/2020 12:00:00 AM EST eCW1 ([facility]) Warfarin Sodium 2.5 MG Oral Tablet 03/02/2020 12:00:00 AM EST eCW1 ([facility]) POLYETHYLENE GLYCOL 3350 142 MG/ML Oral Solution [Patti lax] 07/20/2019 12:00:00 AM EDT eCW1 ([facility] POLYETHYLENE GLYCOL 3350 142 MG/ML Oral Solution [Patti lax] 07/20/2019 12:00:00 AM EDT eCW1 ([facility]) 1 ML Enoxaparin sodium 100 MG/ML Prefilled Syringe [Lo venox] 07/08/2019 12:00:00 AM EDT eCW1 ([facility]) 1 ML Enoxaparin sodium 100 MG/ML Prefilled Syringe [Lo venox] 07/08/2019 12:00:00 AM EDT eCW1 ([facility]) Warfarin Sodium 2.5 MG Oral Tablet [Coumadin] 04/17/2019 12:00:00 A M EST eCW1 ([facility]) Warfarin Sodium 2.5 MG Oral Tablet [Coumadin] 04/17/2019 12:00:00 A M EST eCW1 ([facility]) Coumadin 2.5 MG 04/17/2019 12:00:00 AM EST eCW1 ([facility]) Coumadin 2.5 MG 04/17/2019 12:00:00 AM EST eCW1 ([facility]) Coumadin 2.5 MG 04/17/2019 12:00:00 AM EST eCW1 ([facility]) Losartan Potassium 50 MG Oral Tablet 03/12/2019 12:00:00 AM EST eCW1 ([facility])
--- OUTSIDE RECORDS SUMMARY | 2020-03-12 14:44 | CCD ---
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 Active 73227002 Problem History of tobacco use Z87.891 Active 249056745 9103 Problem Abnormal laboratory test R89.9 Active 2979678 00 Problem BMI 37.0-37.9, adult Z68.37 Active 451447350 Problem Essential hypertension I10 Active 08805720 Problem Stage 3 chronic kidney disease N18.3 Active 4 43289766 Problem Dyslipidemia E78.5 Active 458443370 Problem Generalized anxiety disorder F41.1 Active 218 03034 Problem Influenza vaccination declined by patient Z28.21 Active 469451829 Problem Renal cell carcinoma of left kidney C64.2 Acti ve 030632192 Problem Unspecified disturbances of skin sensation R20.9 Active 53153153 Problem Stage 4 chronic kidney disease N18.4 Active 4 83554950 Problem Essential (primary) hypertension I10 Active 90153573 Problem Mixed hyperlipidemia E78.2 Active 968072725 Problem Female cystocele N81.10 Active 823809084 Problem 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 Active 7938176 03 Problem Renal mass, left N28.89 Active 976893813 Problem S/p nephrectomy Z90.5 Active 983129296 ALLERGIES Allergen (clinical drug ingredient) Drug/Non Drug Allergy do cumented on EMR Reaction Allergy Type Onset Date Status Cristopher inhibitor (for allergies use only) cough Drug All ergy Active ENCOUNTERS from 1962 to 2019-12-29 Encounter Location Date Provider Diagnosis [address] [address] 13 Dec, 2019 Randall Harmonett IMMUNIZATIONS Vaccine Route Administration Date [...] Education Language: Question Answer Notes Languages spoken: Korean Episcopal: Question Answer Notes Episcopal 13 Congregational Sexual Hx: Question Answer Notes Had sex [...] tablet with food Orally Twice a day Active Allergy Relief 10 mg 1 tablet [...] 8.23 % Surgical History appendectomy Surgical History [facility] 11/2010 Surgical History heart valve replacement 2010 Surgical History D&C hysteroscopy 06/2010 Surgical History BTL Surgical History colonoscopy tubular adenoma 03/2015 Surgical History nephrecotomy [facility] LEFT 07/14/2019 Hospitalization History surgery [facility] 07/14/2019- 0 Goals Section No Information Health Concerns No Information MEDICAL EQUIPMENT No Information MENTAL STATUS No Information FUNCTIONAL STATUS No Information ASSESSMENTS No Information PLAN OF TREATMENT Next Appt Details Provider Name:Tristin Zapata, 02:15:00 PM, [address], [place], [address], Insurance Providers Payer Name Payer Address Payer Phone Insured Name Patient Relati onship to Insured Coverage Start Date Coverage End Date MEDICARE COMPLETE [employer] [address] [address] [facility] [id number] RICHARD RANDALL self
--- OUTSIDE RECORDS SUMMARY | 2020-03-12 14:44 | CCD ---
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 Active 10156301 Problem History of tobacco use Z87.891 Active 825117857 9103 Problem Abnormal laboratory test R89.9 Active 1743204 00 Problem BMI 37.0-37.9, adult Z68.37 Active 575845514 Problem Essential hypertension I10 Active 46335830 Problem Stage 3 chronic kidney disease N18.3 Active 4 06882602 Problem Dyslipidemia E78.5 Active 612855325 Problem Generalized anxiety disorder F41.1 Active 218 18587 Problem Influenza vaccination declined by patient Z28.21 Active 556054368 Problem Renal cell carcinoma of left kidney C64.2 Acti ve 340935566 Problem Unspecified disturbances of skin sensation R20.9 Active 19271276 Problem Stage 4 chronic kidney disease N18.4 Active 4 78883772 Problem Essential (primary) hypertension I10 Active 38989193 Problem Mixed hyperlipidemia E78.2 Active 423205687 Problem Female cystocele N81.10 Active 155186788 Problem 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 Active 2536100 03 Problem Renal mass, left N28.89 Active 497679846 Problem S/p nephrectomy Z90.5 Active 870358936 ALLERGIES Allergen (clinical drug ingredient) Drug/Non Drug Allergy do cumented on EMR Reaction Allergy Type Onset Date Status Cristopher inhibitor (for allergies use only) cough Drug All ergy Active ENCOUNTERS from 1962 to 2019-12-31 Encounter Location Date Provider Diagnosis [facility] [address] [place] [address] Dec, Randall Bernard Anticoagulation monitoring, INR range 2. [...] Education Language: Question Answer Notes Languages spoken: Angolan Taoism: Question Answer Notes Taoism 13 Moravian Sexual Hx: Question Answer Notes Had sex [...] Information RESULTS No Results REASON FOR VISIT Repeat INR MEDICAL (GENERAL) HISTORY Type Description Date [...] nephrecotomy [facility] LEFT 07/14/2019 Hospitalization History surgery [facility] 07/14/2019- 0 Goals Section No Information Health Concerns No Information MEDICAL EQUIPMENT No Information MENTAL STATUS No Information FUNCTIONAL STATUS No Information ASSESSMENTS Encounter Date Diagnosis Assessment Notes Treatment Notes Treatm ent Clinical Notes Dec, Anticoagulation monitoring, INR range 2.5-3.5 (I CD-10 - Z79.01) Patient needs repeat INR PLAN OF TREATMENT Treatment Notes Assessment Notes Clinical Notes Anticoagulation monitoring, INR range 2.5-3.5 Patient needs repeat INR Treatment Notes Test Name Order Date PT-INR 2019-12-31 Next Appt Details Provider Name:Tristin Zarate Benny, 02:15:00 PM, [address], [place], [address], Insurance Providers Payer Name Payer Address Payer Phone Insured Name Patient Relati onship to Insured Coverage Start Date Coverage End Date MEDICARE COMPLETE [employer] [address] [address] [facility] [phone] RICHARD RANDALL self
--- OUTSIDE RECORDS SUMMARY | 2020-03-12 14:44 | CCD ---
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 Active 72679055 Problem History of tobacco use Z87.891 Active 187788979 9103 Problem Abnormal laboratory test R89.9 Active 8594611 00 Problem BMI 37.0-37.9, adult Z68.37 Active 536883974 Problem Essential hypertension I10 Active 28141484 Problem Stage 3 chronic kidney disease N18.3 Active 4 03470096 Problem Dyslipidemia E78.5 Active 613117256 Problem Generalized anxiety disorder F41.1 Active 218 81332 Problem Influenza vaccination declined by patient Z28.21 Active 807151356 Problem Renal cell carcinoma of left kidney C64.2 Acti ve 999758813 Problem Unspecified disturbances of skin sensation R20.9 Active 86503000 Problem Stage 4 chronic kidney disease N18.4 Active 4 74429988 Problem Essential (primary) hypertension I10 Active 63471536 Problem Mixed hyperlipidemia E78.2 Active 907043426 Problem Female cystocele N81.10 Active 910111161 Problem 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 Active 1258749 03 Problem Renal mass, left N28.89 Active 930893749 Problem S/p nephrectomy Z90.5 Active 052988563 ALLERGIES Allergen (clinical drug ingredient) Drug/Non Drug Allergy do cumented on EMR Reaction Allergy Type Onset Date Status Cristopher inhibitor (for allergies use only) cough Drug All ergy Active ENCOUNTERS from 1960 to 2020-01-18 Encounter Location Date Provider Diagnosis [facility] [address] [place] [address] Jan, Randall Bernard Anticoagulation monitoring, INR range 2. 5-3.5 Z79.01 IMMUNIZATIONS Vaccine Route Administration Date Status Influenza (18 yrs & older) Flublok IM Intramuscular Mar 12, 2019 Administered Influenza (Pharmacy Given) Unknown Dec 23, 2017 Admin istered Pneumococcal Adult 0.5mL (Pneumovax 23) IM Intramuscular [...] Education Language: Question Answer Notes Languages spoken: Ukrainian Protestant: Question Answer Notes Protestant 13 Confucianist Sexual Hx: Question Answer Notes Had sex [...] nephrecotomy [facility] LEFT 07/14/2019 Hospitalization History surgery [facility] 07/14/2019- 0 Goals Section No Information Health Concerns No Information MEDICAL EQUIPMENT No Information MENTAL STATUS No Information FUNCTIONAL STATUS No Information ASSESSMENTS Encounter Date Diagnosis Assessment Notes Treatment Notes Treatm ent Clinical Notes Jan, Anticoagulation monitoring, INR range 2.5-3.5 (I CD-10 - Z79.01) PLAN OF TREATMENT Medication Medication Name Sig Start Date Stop Date Metoprolol Tartrate 25MG 1 tablet with food Orally Twice a day f or 90 Future Test Test Name Order Date PT-INR [id number] Next Appt Details Provider Name:Tristin Tessa Zapata, 02:15:00 PM, [address], [place], [address], Insurance Providers Payer Name Payer Address Payer Phone Insured Name Patient Relati onship to Insured Coverage Start Date Coverage End Date MEDICARE COMPLETE UNITED [employer] [address] [address] [facility] [phone] RICHARD RANDALL self
[2020-03-12] MEDS ORDERED: NS 1,000 ML IV ONE (15:15)
--- NOTE | 2020-03-12 15:17 | REP ---
INDICATION: R/O CVA. COMPARISON: Comparison CT study of the brain June 30, 2012.. TECHNIQUE: Helical scanning is acquired. 5 mm axial images were reformatted. Coronal MPR images were generated. FINDINGS: Preliminary digital insulation board head saw operator radiograph is unremarkable. Bone window settings demonstrate intact bony calvarium. Visualized paranasal sinuses are clear. No intraorbital abnormality is seen. On soft tissue window settings, there is mild generalized volume loss. There is old encephalomalacia in the occipital lobes bilaterally consistent with old bilateral occipital lobe infarctions. These are unchanged from the 2013 prior study. There are small vessel atherosclerotic changes which are somewhat more prominent. No acute infarction is seen. No intracranial hemorrhage is observed. No mass, extra-axial fluid collection, or midline shift is observed. IMPRESSION: Generalized volume loss. 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 Small vessel changes. No acute intracranial abnormality seen.. <Electronically signed by Marshal Beltran > 03/12/20 [id number]
[2020-03-12 16:06] LABS: BASO % 0.4 % (0.0-1.0); EOS # 0.1 10^3/uL (0.0-0.5); EOS % 1.6 % (0.0-3.0); HEMATOCRIT 42.9 % (36.0-47.0); HEMOGLOBIN 14.5 g/dl (12.0-15.5); LYMPH # 1.4 10^3/uL (1.5-5.0); LYMPH % 18.2 % (24.0-44.0); MEAN CORPUSCULAR HGB CONC 33.8 g/dl (32.0-36.5); MEAN CORPUSCULAR VOLUME 88.6 fl (80.0-96.0); MONO # 0.5 10^3/uL (0.0-0.8); MONO % 7.2 % (0.0-5.0); NEUTROPHILS # 5.4 10^3/uL (1.5-8.5); NEUTROPHILS % 72.2 % (36.0-66.0); RED BLOOD COUNT 4.84 10^6/uL (4.00-5.40); WHITE BLOOD COUNT 7.5 10^3/uL (4.0-10.0)
--- OUTSIDE RECORDS SUMMARY | 2020-03-12 16:16 | CCD ---
Author Author [facility] Organization [facility] Address Unknown Phone Unavailable Care Team Providers Care Colorer Machine Name Role Phone Brynn ORTEGA MD Unavailable [...] KIRSTEN MD Unavailable Unavailable STEPHEN, M ERIN [employer] BANKER Unavailable Unavailable STEPHEN, M ERIN [employer] BANKER Unavailable Unavailable STEPHEN, M ERIN [employer] BANKER Unavailable Unavailable STEPHEN, M ERIN [employer] BANKER Unavailable Unavailable STEPHEN, M ERIN [employer] BANKER Unavailable Unavailable STEPHEN, M ERIN [employer] BANKER Unavailable Unavailable STEPHEN, M ERIN [employer] BANKER Unavailable Unavailable STEPHEN, M ERIN [employer] BANKER Unavailable Unavailable STEPHEN, M ERIN [employer] BANKER Unavailable Unavailable STEPHEN, M ERIN [employer] BANKER Unavailable Unavailable STEPHEN, M ERIN [employer] BANKER Unavailable Unavailable STEPHEN, M ERIN [employer] BANKER Unavailable Unavailable STEPHEN, M ERIN [employer] BANKER Unavailable Unavailable STEPHEN, M ERIN [employer] BANKER Unavailable Unavailable STEPHEN, M ERIN [employer] BANKER Unavailable Unavailable STEPHEN, M ERIN [employer] BANKER Unavailable Unavailable Re-disclosure Warning The records that [...] is protected by Article 27-F of the [facility] Public Health law. If you continue you may have access to information: Regarding HIV / AIDS; Provided by facilities licensed or operated by the [facility] Office of Mental Health; or Provided by the [facility] Office for People With Developmental Disabilities. If such information is present, then the following [facility] mandated warning applies: This information has been [...] law may result in a fine or intermediate sentence or both. A general authorization for the release of medical or other information is NOT sufficient authorization for further disc losure. Allergies and Adverse Reactions Type Description Substance Reaction Status Data Source(s ) Cristopher inhibitor (for allergies use only) Cristopher inhibitor (for al lergies use only) Cristopher inhibitor (for allergies use only) cough Active e CW1 ([facility]) Cristopher inhibitor (for allergies use only) Cristopher inhibitor (for al lergies use only) Cristopher inhibitor (for allergies use only) cough Active e CW1 ([facility]) Cristopher inhibitor (for allergies use only) Cristopher inhibitor (for al lergies use only) Cristopher inhibitor (for allergies use only) cough Active e CW1 ([facility]) Cristopher inhibitor (for allergies use only) Cristopher inhibitor (for al lergies use only) Cristopher inhibitor (for allergies use only) cough Active e CW1 ([facility]) Cristopher inhibitor (for allergies use only) Cristopher inhibitor (for al lergies use only) Cristopher inhibitor (for allergies use only) cough Active e CW1 ([facility]) Encounters Encounter Providers Location Date Indications Data Source(s ) [place] [address] [facility] [address] 03/09/2020 12:00:00 AM EST eCW1 ([facility]) Unknown [address] [facility] [place] [address] 03/09/2020 12:00:00 AM EST eCW1 ([facility]) Unknown [address] [facility] [place] [address] 03/08/2020 12:00:00 AM EST eCW1 ([facility]) Unknown [address] [facility] [place] [address] 03/07/2020 12:00:00 AM EST eCW1 ([facility]) Unknown [address] [facility] [address] 03/07/2020 12:00:00 AM EST eCW1 ([facility]) Unknown [address] [facility] [place] [address] 03/03/2020 12:00:00 AM EST eCW1 ([facility]) [place] [address] [facility] [address] 03/02/2020 12:00:00 AM EST eCW1 ([facility]) Unknown [address] [facility] [address] 03/01/2020 12:00:00 AM EST eCW1 ([facility]) Outpatient [address] [facility] [address] 02/26/2020 12:00:00 AM EST eCW1 ([facility]) Unknown [address] [facility] [place] [address] 02/10/2020 12:00:00 AM EST eCW1 ([facility]) Unknown [address] [facility] [address] 01/25/2020 12:00:00 AM EST eCW1 ([facility]) Unknown [address] [facility] [address] 01/18/2020 12:00:00 AM EST eCW1 ([facility]) Unknown [address] [facility] [place] [address] 01/11/2020 12:00:00 AM EST eCW1 ([facility]) Unknown [address] [facility] [place] [address] 12/28/2019 12:00:00 AM EST eCW1 ([facility]) Unknown [address] [facility] [address] 12/25/2019 12:00:00 AM EST eCW1 ([facility]) Postop visit [address] [facility] [address] 08/25/2019 12:00:00 AM EDT eCW1 ([facility]) Outpatient [address] [facility] [place] [address] 08/17/2019 12:00:00 AM EDT eCW1 ([facility]) [facility] [address] [facility] [address] 07/28/2019 12:00:00 AM EDT [facility]CW1 [facility] Unknown [address] [facility] [address] 07/27/2019 12:00:00 AM EDT eCW1 ([facility]) Unknown [address] [facility] [address] 07/21/2019 12:00:00 AM EDT eCW1 ([facility]) Unknown [address] [facility] [address] 07/20/2019 12:00:00 AM EDT eCW1 ([facility]) [facility] [address] [place] [address] 07/20/2019 12:00:00 AM EDT eCW1 (Critical access hospital) [facility] Urology [address] [facility] [address] 07/13/2019 12:00:00 AM EDT eCW1 ([facility]) Unknown [address] [facility] [address] 07/13/2019 12:00:00 AM EDT eCW1 ([facility]) Outpatient 07/08/2019 12:00:00 AM [facility] Outpatient Attender: ERIN MITCHELL NP 07/07/2019 12:00:00 A M [facility] Outpatient Referrer: KIRSTEN ORTEGA MD 07/02/2019 12:02:31 PM EDT [facility] Urology [address] [facility] [address] 07/02/2019 12:00:00 AM EDT eCW1 ([facility]) [facility] Urology [address] [facility] Y [address] 06/30/2019 12:00:00 AM EDT eCW1 ([facility]) [facility] [place] [address] [facility] Y [address] 06/17/2019 12:00:00 AM EDT eCW1 ([facility]) [facility] [place] [address] [facility] [address] 06/16/2019 12:00:00 AM EDT eCW1 ([facility]) [facility] Urology [address] [facility] [address] 06/16/2019 12:00:00 AM EDT eCW1 ([facility]) [facility] [place] [address] [facility] [address] 06/15/2019 12:00:00 AM EDT eCW1 ([facility]) [facility] Urology [address] [facility] [address] 06/15/2019 12:00:00 AM EDT eCW1 ([facility]) [facility] [place] [address] [facility] [address] 06/15/2019 12:00:00 AM EDT eCW1 ([facility]) [facility] [place] [address] [facility] [address] 06/04/2019 12:00:00 AM EDT eCW1 ([facility]) [facility] [place] [address] [facility] [address] 06/03/2019 12:00:00 AM EDT eCW1 ([facility]) [facility] [place] [address] [facility] [address] 06/03/2019 12:00:00 AM EDT eCW1 ([facility]) [facility] [place] [address] [facility] [address] 05/22/2019 12:00:00 AM EDT eCW1 ([facility]) [facility] [place] [address] [facility] [address] 05/04/2019 12:00:00 AM EDT eCW1 ([facility]) [facility] [place] [address] [facility] [address] 04/27/2019 12:00:00 AM EDT eCW1 ([facility]) [facility] [place] [address] [facility] [address] 04/17/2019 12:00:00 AM EST eCW1 ([facility]) [facility] [address] [facility] [address] 04/15/2019 12:00:00 AM EST eCW1 ([facility]) [facility] [address] [facility] [address] 04/01/2019 12:00:00 AM EST eCW1 ([facility]) [facility] [address] [facility] [address] 04/01/2019 12:00:00 AM EST eCW1 ([facility]) [facility] [address] [facility] [address] 03/25/2019 12:00:00 AM EST eCW1 ([facility]) [facility] [address] [facility] [address] 03/24/2019 12:00:00 AM EST eCW1 ([facility]) [facility] [address] [facility] [address] 03/12/2019 12:00:00 AM EST eCW1 ([facility]) [facility] [address] [facility] [address] 03/12/2019 12:00:00 AM EST eCW1 ([facility]) [facility] [address] [facility] [address] 02/13/2019 12:00:00 AM EST eCW1 ([facility]) [facility] [address] [facility] [address] 01/30/2019 12:00:00 AM EST eCW1 ([facility]) [facility] [address] [place] [address] 01/25/2019 12:00:00 AM EST eCW1 ([facility]) Immunizations Vaccine Date Status Description Data Source(s) influenza, recombinant, quadrIvalent,injectable, prese rvative free 03/12/2019 08:27:00 AM EST completed eCW1 ([facility]) influenza, recombinant, quadrIvalent,injectable, prese rvative free 03/12/2019 08:27:00 AM EST completed eCW1 ([facility]) influenza, recombinant, quadrIvalent,injectable, prese rvative free 03/12/2019 08:27:00 AM EST completed eCW1 ([facility]) influenza, recombinant, quadrIvalent,injectable, prese rvative free 03/12/2019 08:27:00 AM EST completed eCW1 ([facility]) influenza, recombinant, quadrIvalent,injectable, prese rvative free 03/12/2019 08:27:00 AM EST completed eCW1 ([facility]) influenza, recombinant, quadrIvalent,injectable, prese rvative free 03/12/2019 08:27:00 AM EST completed eCW1 ([facility]) influenza, recombinant, quadrIvalent,injectable, prese rvative free 03/12/2019 08:27:00 AM EST completed eCW1 ([facility]) influenza, recombinant, quadrIvalent,injectable, prese rvative free 03/12/2019 08:27:00 AM EST completed eCW1 ([facility]) influenza, recombinant, quadrIvalent,injectable, prese rvative free 03/12/2019 08:27:00 AM EST completed eCW1 ([facility]) influenza, recombinant, quadrIvalent,injectable, prese rvative free 03/12/2019 08:27:00 AM EST completed eCW1 ([facility]) influenza, recombinant, quadrIvalent,injectable, prese rvative free 03/12/2019 08:27:00 AM EST completed eCW1 ([facility]) influenza, recombinant, quadrIvalent,injectable, prese rvative free 03/12/2019 08:27:00 AM EST completed eCW1 ([facility]) influenza, recombinant, quadrIvalent,injectable, prese rvative free 03/12/2019 08:27:00 AM EST completed eCW1 ([facility]) influenza, recombinant, quadrIvalent,injectable, prese rvative free 03/12/2019 08:27:00 AM EST completed eCW1 ([facility]) influenza, recombinant, quadrIvalent,injectable, prese rvative free 03/12/2019 08:27:00 AM EST completed eCW1 ([facility]) influenza, recombinant, quadrIvalent,injectable, prese rvative free 03/12/2019 08:27:00 AM EST completed eCW1 ([facility]) influenza, recombinant, quadrIvalent,injectable, prese rvative free 03/12/2019 08:27:00 AM EST completed eCW1 ([facility]) influenza, recombinant, quadrIvalent,injectable, prese rvative free 03/12/2019 08:27:00 AM EST completed eCW1 ([facility]) influenza, recombinant, quadrIvalent,injectable, prese rvative free 03/12/2019 08:27:00 AM EST completed eCW1 ([facility]) influenza, recombinant, quadrIvalent,injectable, prese rvative free 03/12/2019 08:27:00 AM EST completed eCW1 ([facility]) influenza, recombinant, quadrIvalent,injectable, prese rvative free 03/12/2019 08:27:00 AM EST completed eCW1 ([facility]) influenza, recombinant, quadrIvalent,injectable, prese rvative free 03/12/2019 08:27:00 AM EST completed eCW1 ([facility]) Medications Medication Brand Name Start Date Product Form Dose Route Admi nistrative Instructions Pharmacy Instructions Status Indications Reaction Description Data Source(s) Amoxicillin 875 MG / Clavulanate 125 MG Oral Tablet Amoxicillin-Pot Clavulanate 875-125 MG Amoxicillin-Pot Clavulanate 875-125 MG 03/09/2020 12:00:00 AM ES T 1.0 {tablet} active Amoxicillin-Pot Cla vulanate 875-125 MG eCW1 ([facility]) Amoxicillin 875 MG / Clavulanate 125 MG Oral Tablet Amoxicillin-Pot Clavulanate 875-125 MG Amoxicillin-Pot Clavulanate 875-125 MG 03/09/2020 12:00:00 AM ES T 1.0 {tablet} active Amoxicillin-Pot Cla vulanate 875-125 MG eCW1 ([facility]) Warfarin Sodium 2.5 MG Oral Tablet Warfarin Sodium 2.5 MG 12:00:00 AM EST 1.0 {tablet} active Warfarin So dium 2.5 MG eCW1 ([facility]) Warfarin Sodium 2.5 MG Oral Tablet Warfarin Sodium 2.5 MG 12:00:00 AM EST 1.0 {tablet} active Warfarin So dium 2.5 MG eCW1 ([facility]) Warfarin Sodium 2.5 MG Oral Tablet Warfarin Sodium 2.5 MG 12:00:00 AM EST 1.0 {tablet} active Warfarin So dium 2.5 MG eCW1 ([facility]) Warfarin Sodium 2.5 MG Oral Tablet Warfarin Sodium 2.5 MG 12:00:00 AM EST 1.0 {tablet} active Warfarin So dium 2.5 MG eCW1 ([facility]) Warfarin Sodium 2.5 MG Oral Tablet Warfarin Sodium 2.5 MG 12:00:00 AM EST 1.0 {tablet} active Warfarin So dium 2.5 MG eCW1 ([facility]) Warfarin Sodium 2.5 MG Oral Tablet Warfarin Sodium 2.5 MG 12:00:00 AM EST 1.0 {tablet} active Warfarin So dium 2.5 MG eCW1 ([facility]) Warfarin Sodium 2.5 MG Oral Tablet Warfarin Sodium 2.5 MG 12:00:00 AM EST 1.0 {tablet} active Warfarin So dium 2.5 MG eCW1 ([facility]) MiraLax - UNK 07/20/2019 12:00:00 AM EDT 1 .0 {packet_mixed_with_8_ounces_of_fluid} suspended MiraLax - eCW1 ([facility]) POLYETHYLENE GLYCOL 3350 142 MG/ML Oral Solution [Miralax] M iraLax - MiraLax - 07/20/2019 12:00:00 AM EDT 1.0 {packet_mixed_with_8_ounces_of_fluid} active MiraLax - eCW1 ([facility]) POLYETHYLENE GLYCOL 3350 142 MG/ML Oral Solution [Miralax] M iraLax - MiraLax - 07/20/2019 12:00:00 AM EDT 1.0 {packet_mixed_with_8_ounces_of_fluid} suspended MiraLax - eCW1 ([facility]) MiraLax - UNK 07/20/2019 12:00:00 AM EDT 1 .0 {packet_mixed_with_8_ounces_of_fluid} suspended MiraLax - eCW1 ([facility]) MiraLax - UNK 07/20/2019 12:00:00 AM EDT 1 .0 {packet_mixed_with_8_ounces_of_fluid} suspended MiraLax - eCW1 ([facility]) MiraLax - UNK 07/20/2019 12:00:00 AM EDT 1 .0 {packet_mixed_with_8_ounces_of_fluid} suspended MiraLax - eCW1 ([facility]) MiraLax - UNK 07/20/2019 12:00:00 AM EDT 1 .0 {packet_mixed_with_8_ounces_of_fluid} suspended MiraLax - eCW1 ([facility]) POLYETHYLENE GLYCOL 3350 142 MG/ML Oral Solution [Miralax] M iraLax - MiraLax - 07/20/2019 12:00:00 AM EDT 1.0 {packet_mixed_with_8_ounces_of_fluid} suspended MiraLax - eCW1 ([facility]) MiraLax - UNK 07/20/2019 12:00:00 AM EDT 1 .0 {packet_mixed_with_8_ounces_of_fluid} suspended MiraLax - eCW1 ([facility]) MiraLax - UNK 07/20/2019 12:00:00 AM EDT 1 .0 {packet_mixed_with_8_ounces_of_fluid} suspended MiraLax - eCW1 ([facility]) MiraLax - UNK 07/20/2019 12:00:00 AM EDT 1 .0 {packet_mixed_with_8_ounces_of_fluid} suspended MiraLax - eCW1 ([facility]) MiraLax - UNK 07/20/2019 12:00:00 AM EDT 1 .0 {packet_mixed_with_8_ounces_of_fluid} suspended MiraLax - eCW1 ([facility]) MiraLax - UNK 07/20/2019 12:00:00 AM EDT 1 .0 {packet_mixed_with_8_ounces_of_fluid} suspended MiraLax - eCW1 ([facility]) MiraLax - UNK 07/20/2019 12:00:00 AM EDT 1 .0 {packet_mixed_with_8_ounces_of_fluid} suspended MiraLax - eCW1 ([facility]) MiraLax - UNK 07/20/2019 12:00:00 AM EDT 1 .0 {packet_mixed_with_8_ounces_of_fluid} suspended MiraLax - eCW1 ([facility]) MiraLax - UNK 07/20/2019 12:00:00 AM EDT 1 .0 {packet_mixed_with_8_ounces_of_fluid} suspended MiraLax - eCW1 ([facility]) POLYETHYLENE GLYCOL 3350 142 MG/ML Oral Solution [Miralax] M iraLax - MiraLax - 07/20/2019 12:00:00 AM EDT 1.0 {packet_mixed_with_8_ounces_of_fluid} active MiraLax - eCW1 ([facility]) MiraLax - UNK 07/20/2019 12:00:00 AM EDT 1 .0 {packet_mixed_with_8_ounces_of_fluid} suspended MiraLax - eCW1 ([facility]) MiraLax - UNK 07/20/2019 12:00:00 AM EDT 1 .0 {packet_mixed_with_8_ounces_of_fluid} suspended MiraLax - eCW1 ([facility]) POLYETHYLENE GLYCOL 3350 142 MG/ML Oral Solution [Miralax] M iraLax - MiraLax - 07/20/2019 12:00:00 AM EDT 1.0 {packet_mixed_with_8_ounces_of_fluid} suspended MiraLax - eCW1 ([facility]) Metamucil - UNK 07/18/2019 12:00:00 AM EDT active Metamucil - eCW1 ([facility]) Acetaminophen 325 MG / Oxycodone Hydroch loride 5 MG Oral Tablet Oxycodone- Acetaminophen 5-325 MG Oxycodone-Acetaminophen 5-325 MG 07/18/2019 12:00:00 A M EDT 1.0 {tablet_as_needed} suspended Oxycodone-Acetaminophen 5-325 MG eCW1 ([facility]) Metamucil - UNK 07/18/2019 12:00:00 AM EDT active Metamucil - eCW1 ([facility]) Acetaminophen 325 MG / Oxycodone Hydroch loride 5 MG Oral Tablet Oxycodone- Acetaminophen 5-325 MG Oxycodone-Acetaminophen 5-325 MG 07/18/2019 12:00:00 A M EDT 1.0 {tablet_as_needed} suspended Oxycodone-Acetaminophen 5-325 MG eCW1 ([facility]) Acetaminophen 325 MG / Oxycodone Hydroch loride 5 MG Oral Tablet Oxycodone- Acetaminophen 5-325 MG Oxycodone-Acetaminophen 5-325 MG 07/18/2019 12:00:00 A M EDT 1.0 {tablet_as_needed} active O xycodone-Acetaminophen 5-325 MG eCW1 ([facility]) Metamucil - UNK 07/18/2019 12:00:00 AM EDT active Metamucil - eCW1 ([facility]) Acetaminophen 325 MG / Oxycodone Hydroch loride 5 MG Oral Tablet Oxycodone- Acetaminophen 5-325 MG Oxycodone-Acetaminophen 5-325 MG 07/18/2019 12:00:00 A M EDT 1.0 {tablet_as_needed} active O xycodone-Acetaminophen 5-325 MG eCW1 ([facility]) Acetaminophen 325 MG / Oxycodone Hydroch loride 5 MG Oral Tablet Oxycodone- Acetaminophen 5-325 MG Oxycodone-Acetaminophen 5-325 MG 07/18/2019 12:00:00 A M EDT 1.0 {tablet_as_needed} suspended Oxycodone-Acetaminophen 5-325 MG eCW1 ([facility]) Metamucil - UNK 07/18/2019 12:00:00 AM EDT active Metamucil - eCW1 ([facility]) Metamucil - UNK 07/18/2019 12:00:00 AM EDT active Metamucil - eCW1 ([facility]) Acetaminophen 325 MG / Oxycodone Hydroch loride 5 MG Oral Tablet Oxycodone- Acetaminophen 5-325 MG Oxycodone-Acetaminophen 5-325 MG 07/18/2019 12:00:00 A M EDT 1.0 {tablet_as_needed} active O xycodone-Acetaminophen 5-325 MG eCW1 ([facility]) Metamucil - UNK 07/18/2019 12:00:00 AM EDT active Metamucil - eCW1 ([facility]) Acetaminophen 325 MG / Oxycodone Hydroch loride 5 MG Oral Tablet Oxycodone- Acetaminophen 5-325 MG Oxycodone-Acetaminophen 5-325 MG 07/18/2019 12:00:00 A M EDT 1.0 {tablet_as_needed} active O xycodone-Acetaminophen 5-325 MG eCW1 ([facility]) Metamucil - UNK 07/18/2019 12:00:00 AM EDT active Metamucil - eCW1 ([facility]) Acetaminophen 325 MG / Oxycodone Hydroch loride 5 MG Oral Tablet Oxycodone- Acetaminophen 5-325 MG Oxycodone-Acetaminophen 5-325 MG 07/18/2019 12:00:00 A M EDT 1.0 {tablet_as_needed} active O xycodone-Acetaminophen 5-325 MG eCW1 ([facility]) Acetaminophen 325 MG / Oxycodone Hydroch loride 5 MG Oral Tablet Oxycodone- Acetaminophen 5-325 MG Oxycodone-Acetaminophen 5-325 MG 07/18/2019 12:00:00 A M EDT 1.0 {tablet_as_needed} suspended Oxycodone-Acetaminophen 5-325 MG eCW1 ([facility]) Acetaminophen 325 MG / Oxycodone Hydroch loride 5 MG Oral Tablet Oxycodone- Acetaminophen 5-325 MG Oxycodone-Acetaminophen 5-325 MG 07/18/2019 12:00:00 A M EDT 1.0 {tablet_as_needed} suspended Oxycodone-Acetaminophen 5-325 MG eCW1 ([facility]) Metamucil - UNK 07/18/2019 12:00:00 AM EDT active Metamucil - eCW1 ([facility]) Acetaminophen 325 MG / Oxycodone Hydroch loride 5 MG Oral Tablet Oxycodone- Acetaminophen 5-325 MG Oxycodone-Acetaminophen 5-325 MG 07/18/2019 12:00:00 A M EDT 1.0 {tablet_as_needed} active O xycodone-Acetaminophen 5-325 MG eCW1 ([facility]) Acetaminophen 325 MG / Oxycodone Hydroch loride 5 MG Oral Tablet Oxycodone- Acetaminophen 5-325 MG Oxycodone-Acetaminophen 5-325 MG 07/18/2019 12:00:00 A M EDT 1.0 {tablet_as_needed} suspended Oxycodone-Acetaminophen 5-325 MG eCW1 ([facility]) Acetaminophen 325 MG / Oxycodone Hydroch loride 5 MG Oral Tablet Oxycodone- Acetaminophen 5-325 MG Oxycodone-Acetaminophen 5-325 MG 07/18/2019 12:00:00 A M EDT 1.0 {tablet_as_needed} active O xycodone-Acetaminophen 5-325 MG eCW1 ([facility]) Metamucil - UNK 07/18/2019 12:00:00 AM EDT active Metamucil - eCW1 ([facility]) Metamucil - UNK 07/18/2019 12:00:00 AM EDT active Metamucil - eCW1 ([facility]) Metamucil - UNK 07/18/2019 12:00:00 AM EDT active Metamucil - eCW1 ([facility]) Acetaminophen 325 MG / Oxycodone Hydroch loride 5 MG Oral Tablet Oxycodone- Acetaminophen 5-325 MG Oxycodone-Acetaminophen 5-325 MG 07/18/2019 12:00:00 A M EDT 1.0 {tablet_as_needed} suspended Oxycodone-Acetaminophen 5-325 MG eCW1 ([facility]) Metamucil - UNK 07/18/2019 12:00:00 AM EDT active Metamucil - eCW1 ([facility]) Metamucil - UNK 07/18/2019 12:00:00 AM EDT active Metamucil - eCW1 ([facility]) Acetaminophen 325 MG / Oxycodone Hydroch loride 5 MG Oral Tablet Oxycodone- Acetaminophen 5-325 MG Oxycodone-Acetaminophen 5-325 MG 07/18/2019 12:00:00 A M EDT 1.0 {tablet_as_needed} active O xycodone-Acetaminophen 5-325 MG eCW1 ([facility]) Acetaminophen 325 MG / Oxycodone Hydroch loride 5 MG Oral Tablet Oxycodone- Acetaminophen 5-325 MG Oxycodone-Acetaminophen 5-325 MG 07/18/2019 12:00:00 A M EDT 1.0 {tablet_as_needed} active O xycodone-Acetaminophen 5-325 MG eCW1 ([facility]) Metamucil - UNK 07/18/2019 12:00:00 AM EDT active Metamucil - eCW1 ([facility]) Metamucil - UNK 07/18/2019 12:00:00 AM EDT active Metamucil - eCW1 ([facility]) Metamucil - UNK 07/18/2019 12:00:00 AM EDT active Metamucil - eCW1 ([facility]) Metamucil - UNK 07/18/2019 12:00:00 AM EDT active Metamucil - eCW1 ([facility]) Acetaminophen 325 MG / Oxycodone Hydroch loride 5 MG Oral Tablet Oxycodone- Acetaminophen 5-325 MG Oxycodone-Acetaminophen 5-325 MG 07/18/2019 12:00:00 A M EDT 1.0 {tablet_as_needed} active O xycodone-Acetaminophen 5-325 MG eCW1 ([facility]) Acetaminophen 325 MG / Oxycodone Hydroch loride 5 MG Oral Tablet Oxycodone- Acetaminophen 5-325 MG Oxycodone-Acetaminophen 5-325 MG 07/18/2019 12:00:00 A M EDT 1.0 {tablet_as_needed} active O xycodone-Acetaminophen 5-325 MG eCW1 ([facility]) Acetaminophen 325 MG / Oxycodone Hydroch loride 5 MG Oral Tablet Oxycodone- Acetaminophen 5-325 MG Oxycodone-Acetaminophen 5-325 MG 07/18/2019 12:00:00 A M EDT 1.0 {tablet_as_needed} suspended Oxycodone-Acetaminophen 5-325 MG eCW1 ([facility]) Metamucil - UNK 07/18/2019 12:00:00 AM EDT active Metamucil - eCW1 ([facility]) Metamucil - UNK 07/18/2019 12:00:00 AM EDT active Metamucil - eCW1 ([facility]) Acetaminophen 325 MG / Oxycodone Hydroch loride 5 MG Oral Tablet Oxycodone- Acetaminophen 5-325 MG Oxycodone-Acetaminophen 5-325 MG 07/18/2019 12:00:00 A M EDT 1.0 {tablet_as_needed} suspended Oxycodone-Acetaminophen 5-325 MG eCW1 ([facility]) Metamucil - UNK 07/18/2019 12:00:00 AM EDT active Metamucil - eCW1 ([facility]) 1 ML Enoxaparin sodium 100 MG/ML Prefilled Syringe [Lo venox] Lovenox 100 MG/ML Lovenox 100 MG/ML 07/08/2019 12:00:00 AM EDT 1.0 {ml} active Lovenox 100 MG/ML eCW1 ([facility]) 1 ML Enoxaparin sodium 100 MG/ML Prefilled Syringe [Lo venox] Lovenox 100 MG/ML Lovenox 100 MG/ML 07/08/2019 12:00:00 AM EDT activ e 1 mL eCW1 ([facility]) Warfarin Sodium 2.5 MG Oral Tablet [Coumadin] Coumadin 2.5 M G Coumadin 2.5 MG 04/17/2019 12:00:00 AM EST 1.0 {tablet} active Coumadin 2.5 MG eCW1 ([facility]) Warfarin Sodium 2.5 MG Oral Tablet [Coumadin] Coumadin 2.5 M G Coumadin 2.5 MG 04/17/2019 12:00:00 AM EST active 1 tablet eCW1 ([facility]) Coumadin 2.5 MG UNK 04/17/2019 12:00:00 AM EST 1.0 {tablet} active Coumadin 2.5 MG eCW1 ([facility]) Coumadin 2.5 MG UNK 04/17/2019 12:00:00 AM EST 1.0 {tablet} suspended Coumadin 2.5 MG eCW1 ([facility]) Coumadin 2.5 MG UNK 04/17/2019 12:00:00 AM EST 1.0 {tablet} active Coumadin 2.5 MG eCW1 ([facility]) Warfarin Sodium 2.5 MG Oral Tablet [Coumadin] Coumadin 2.5 M G Coumadin 2.5 MG 04/17/2019 12:00:00 AM EST 1.0 {tablet} active Coumadin 2.5 MG eCW1 ([facility]) Coumadin 2.5 MG UNK 04/17/2019 12:00:00 AM EST 1.0 {tablet} active Coumadin 2.5 MG eCW1 ([facility]) Warfarin Sodium 2.5 MG Oral Tablet [Coumadin] Coumadin 2.5 M G Coumadin 2.5 MG 04/17/2019 12:00:00 AM EST active 1 tablet eCW1 ([facility]) Warfarin Sodium 2.5 MG Oral Tablet [Coumadin] Coumadin 2.5 M G Coumadin 2.5 MG 04/17/2019 12:00:00 AM EST 1.0 {tablet} active Coumadin 2.5 MG eCW1 ([facility]) Warfarin Sodium 2.5 MG Oral Tablet [Coumadin] Coumadin 2.5 M G Coumadin 2.5 MG 04/17/2019 12:00:00 AM EST 1.0 {tablet} active Coumadin 2.5 MG eCW1 ([facility]) Coumadin 2.5 MG UNK 04/17/2019 12:00:00 AM EST 1.0 {tablet} suspended Coumadin 2.5 MG eCW1 ([facility]) Warfarin Sodium 2.5 MG Oral Tablet [Coumadin] Coumadin 2.5 M G Coumadin 2.5 MG 04/17/2019 12:00:00 AM EST active 1 tablet eCW1 ([facility]) Warfarin Sodium 2.5 MG Oral Tablet [Coumadin] Coumadin 2.5 M G Coumadin 2.5 MG 04/17/2019 12:00:00 AM EST 1.0 {tablet} active Coumadin 2.5 MG eCW1 ([facility]) Coumadin 2.5 MG UNK 04/17/2019 12:00:00 AM EST 1.0 {tablet} suspended Coumadin 2.5 MG eCW1 ([facility]) Warfarin Sodium 2.5 MG Oral Tablet [Coumadin] Coumadin 2.5 M G Coumadin 2.5 MG 04/17/2019 12:00:00 AM EST 1.0 {tablet} active Coumadin 2.5 MG eCW1 ([facility]) Warfarin Sodium 2.5 MG Oral Tablet [Coumadin] Coumadin 2.5 M G Coumadin 2.5 MG 04/17/2019 12:00:00 AM EST 1.0 {tablet} active Coumadin 2.5 MG eCW1 ([facility]) Coumadin 2.5 MG UNK 04/17/2019 12:00:00 AM EST 1.0 {tablet} active Coumadin 2.5 MG eCW1 ([facility]) Warfarin Sodium 2.5 MG Oral Tablet [Coumadin] Coumadin 2.5 M G Coumadin 2.5 MG 04/17/2019 12:00:00 AM EST 1.0 {tablet} active Coumadin 2.5 MG eCW1 ([facility]) Coumadin 2.5 MG UNK 04/17/2019 12:00:00 AM EST 1.0 {tablet} suspended Coumadin 2.5 MG eCW1 ([facility]) Warfarin Sodium 2.5 MG Oral Tablet [Coumadin] Coumadin 2.5 M G Coumadin 2.5 MG 04/17/2019 12:00:00 AM EST 1.0 {tablet} active Coumadin 2.5 MG eCW1 ([facility]) Warfarin Sodium 2.5 MG Oral Tablet [Coumadin] Coumadin 2.5 M G Coumadin 2.5 MG 04/17/2019 12:00:00 AM EST 1.0 {tablet} active Coumadin 2.5 MG eCW1 ([facility]) Coumadin 2.5 MG UNK 04/17/2019 12:00:00 AM EST 1.0 {tablet} active Coumadin 2.5 MG eCW1 ([facility]) Warfarin Sodium 2.5 MG Oral Tablet [Coumadin] Coumadin 2.5 M G Coumadin 2.5 MG 04/17/2019 12:00:00 AM EST 1.0 {tablet} active Coumadin 2.5 MG eCW1 ([facility]) Coumadin 2.5 MG UNK 04/17/2019 12:00:00 AM EST 1.0 {tablet} active Coumadin 2.5 MG eCW1 ([facility]) Warfarin Sodium 2.5 MG Oral Tablet [Coumadin] Coumadin 2.5 M G Coumadin 2.5 MG 04/17/2019 12:00:00 AM EST active 1 tablet eCW1 ([facility]) Losartan Potassium 50 MG Oral Tablet Losartan Potassium 50 M G 03/12/2019 12:00:00 AM EST active 1 tablet eCW1 ([facility]) Losartan Potassium 50 MG Oral Tablet Losartan Potassium 50 M G 03/12/2019 12:00:00 AM EST 1.0 {tablet} active Lo sartan Potassium 50 MG eCW1 ([facility]) Losartan Potassium 50 MG Oral Tablet Losartan Potassium 50 M G 03/12/2019 12:00:00 AM EST active 1 tablet eCW1 ([facility]) Losartan Potassium 50 MG Oral Tablet Losartan Potassium 50 M G 03/12/2019 12:00:00 AM EST active 1 tablet eCW1 ([facility]) Losartan Potassium 50 MG Oral Tablet Losartan Potassium 50 M G 03/12/2019 12:00:00 AM EST active 1 tablet eCW1 ([facility]) Insurance Providers Payer name Policy type / Coverage type Policy ID Covered democrat ID Covered democrat's relationship to de la cruz Policy [place] Plan Information HUMANA GOLD [id number] SP [id number] HUMANA GOLD [id number] SP [id number] MEDICARE COMPLETE [id number] SP [id number] MEDICARE [id number] SP [id number] MEDICARE COMPLETE [id number] SP [id number] MEDICARE A [id number] Self [id number] MEDICARE COMPLETE [id number] SP [id number] ANSI-Medicare Part B [id number] ANSI-Medicare Part B [id number] ANSI-Medicare Part B [id number] MEDICARE COMPLETE [id number] SP [id number] MEDICARE COMPLETE [id number] SP [id number] ANSI-Medicare Part B [id number] ANSI-Medicare Part B [id number] ANSI-Medicare Part B [id number] ANSI-Medicare Part B [id number] ANSI-Medicare Part B [id number] ANSI-Medicare Part B [id number] ANSI-Medicare Part B [id number] ANSI-Medicare Part B [id number] ANSI-Medicare Part B [id number] ANSI-Medicare Part B [id number] ANSI-Medicare Part B [id number] ANSI-Medicare Part B [id number] ANSI-Medicare Part B [id number] ANSI-Medicare Part B [id number] ANSI-Medicare Part B [id number] ANSI-Medicare Part B [id number] ANSI-Medicare Part B [id number] MEDICARE COMPLETE [id number] SP [id number] MEDICARE COMPLETE [id number] SP [id number] [facility] [id number] SP [id number] [facility] [place] [id number] SP [id number] [place]/307 [id number] [place] [id number] [place]/307 [id number] [place] [id number] MEDICARE [id number] SP [id number] A [employer]BS B [id number] P [id number] [id number] MEDICARE C [id number] S [id number] A [place]/307 [id number] [id number] BC[facility] 121/621 [id number] HU2 [id number] BLUE CROSS BLUE SHIELD -O/P [id number] MEDICARE -O/P [id number] 18 [id number] [place] [employer] P [id number] S [id number] MEDICARE [id number] SP [id number] A BLUE CROSS BLUE SHIELD -O/P [id number] MEDICARE INPATIENT M [id number] S [id number] [place] 121/621 [id number] HUMANA TRADITIONAL [id number] SELF PAY UNAVAILABLE UNAVAILA BLE BCBS [place] 020/520 [id number] A M [id number] S [id number] A Problems, Conditions, and Diagnoses Code Display Name Description Problem Type Effective Dates Data Source(s) R91.1 Solitary nodule of lung Lung nodule Problem 02/26/2020 12:00:00 AM EST eCW1 ([facility]) C64.2 Malignant tumor of kidney Renal cell carcinoma of left kidney Problem 07/28/2019 12:00:00 AM EDT eCW1 ([facility]) 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 Problem 07/28/2019 12:00: 00 AM EDT eCW1 ([facility]) N18.4 [id number] Stage 4 chronic kidney disease Problem 07/27/2019 12:00:00 AM EDT eCW1 ([facility]) N28.89 Disorder of kidney and/or ureter Renal mass, left Prob sina 06/15/2019 12:00:00 AM EDT eCW1 ([facility]) N28.89 Disorder of kidney and/or ureter Renal mass, left Prob sina 06/15/2019 12:00:00 AM EDT eCW1 ([facility]) H54.10 [id number] Blindness and low vision Problem 03/12/2019 12:00:00 AM EST eCW1 ([facility]) H54.10 [id number] Blindness and low vision Problem 03/12/2019 12:00:00 AM EST eCW1 ([facility]) Surgeries/Procedures Procedure Description Date Indications Data Source(s) Office Visit, New Pt., Level 2 FC 06/15/2019 12:00:00 AM EDT eCW1 ([facility]) Office Visit, New Pt., Level 3 PC 06/15/2019 12:00:00 AM EDT eCW1 ([facility]) PROTHROMBIN TIME 04/17/2019 12:00:00 AM EST eCW1 ([facility]) Office Visit, Est Pt., Level 3 FC 03/12/2019 12:00:00 AM EST eCW1 ([facility]) Office Visit, Est Pt., Level 4 PC 03/12/2019 12:00:00 AM EST eCW1 ([facility]) RIV4 VACC RECOMBINANT DNA IM 03/12/2019 12:00:00 AM ES T eCW1 ([facility]) Administration of influenza virus vaccine 03/12/2019 1 2:00:00 AM EST eCW1 ([facility]) Results ID Date Data Source [id number] 02/11/2020 12:00:00 PM EST [facility] Name Value Range Interpretation Code Description Data Aida rce(s) Supporting Document(s) SARS coronavirus 2 RNA [facility] This lab was ordered by [facility] and reported by [facility]. ID Date Data Source [id number] 08/18/2019 11:00:14 AM EDT eCW1 [facility] Name Value Range Interpretation Code Description Data Aida rce(s) Supporting Document(s) Prothrombin time (PT) 36.5 PROTHROMBIN TI ME eCW1 ([facility]) INR in Platelet poor plasma by Coagulation assay 3.67 INR eCW1 ([facility]) ID Date Data Source [id number] 07/11/2019 09:10:00 AM EDT [facility] Name Value Range Interpretation Code Description Data Aida rce(s) Supporting Document(s) SARS CORONAVIRUS 2 RNA [facility] This lab was ordered by [facility] and reported by [facility]. ID Date Data Source [id number] 07/06/2019 12:50:00 PM EDT [facility] Name Value Range Interpretation Code Description Data Aida rce(s) Supporting Document(s) SARS CORONAVIRUS 2 RNA [facility] This lab was ordered by [facility] and reported by [facility]. ID Date Data Source [id number] 07/02/2019 12:00:00 PM EDT [facility] MYOCARDIAL PERFUSION MULTIPLE STUDY SPECTCLINICAL [...] & APTT 06/17/2019 12:00:00 AM EDT eCW1 ([facility]) Name Value Range Interpretation Code Description Data Aida rce(s) Supporting Document(s) 44.0 11.8-14.0 PROTHROMBIN TIME eCW1 ([facility]) 98.8 25.0-38.4 PARTIAL THROMBOPLASTIN TI ME eCW1 ([facility]) 4.63 INR eCW1 ([facility]) ID Date Data Source Basic Metabolic Profile (BMP) 06/17/2019 12:00:00 AM EDT eCW 1 ([facility]) Name Value Range Interpretation Code Description Data Aida rce(s) Supporting Document(s) 86 70-100 GLUCOSE, FASTING eCW1 ([facility]) 51.4 >51 GLOMERULAR FILTRATION RATE eCW 1 ([facility]) 139 136-145 SODIUM LEVEL eCW1 ([facility]) 24 7-18 BLOOD UREA NITROGEN eCW1 ([facility]) 1.16 0.55-1.30 CREATININE FOR GFR eCW1 ([facility]) 5.0 3.5-5.1 POTASSIUM SERUM eCW1 ([facility]) 27 21-32 CARBON DIOXIDE LEVEL eCW1 ([facility]) 106 98-107 CHLORIDE LEVEL eCW1 ([facility]) 10.0 8.5-10.1 CALCIUM LEVEL eCW1 ([facility]) ID Date Data Source CBC - Complete Blood Count 06/17/2019 12:00:00 AM EDT eCW1 ( [facility]) Name Value Range Interpretation Code Description Data Aida rce(s) Supporting Document(s) 5.9 4.0-10.0 WHITE BLOOD COUNT eCW1 ([facility]) 4.18 4.00-5.40 RED BLOOD COUNT eCW1 ([facility]) 88.5 80.0-96.0 MEAN CORPUSCULAR VOLUME e CW1 ([facility]) 37.0 36.0-47.0 HEMATOCRIT eCW1 ([facility]) 12.4 12.0-15.5 HEMOGLOBIN eCW1 ([facility]) 29.7 27.0-33.0 MEAN CORPUSCULAR HEMOGLOB IN eCW1 ([facility]) 33.5 32.0-36.5 MEAN CORPUSCULAR HGB CONC eCW1 ([facility]) 258 150-450 PLATELET COUNT, AUTOMATED eCW1 ([facility]) 12.3 11.5-14.5 RED CELL DISTRIBUTION WID TH eCW1 ([facility]) ID Date Data Source [id number] 06/11/2019 02:13:00 PM EDT [facility] Name Value Range Interpretation Code Description Data Aida rce(s) Supporting Document(s) SARS CORONAVIRUS 2 RNA [facility] This lab was ordered by [facility] and reported by [facility]. ID Date Data Source [id number] 03/12/2019 12:00:00 AM EST eCW1 ([facility]) Name Value Range Interpretation Code Description Data Aida rce(s) Supporting Document(s) Hemoglobin A1c/Hemoglobin.total in Blood 5.7 HEMOGLOBIN A1c eCW1 ([facility]) ID Date Data Source TSH 03/12/2019 12:00:00 AM EST eCW1 ([facility]) Name Value Range Interpretation Code Description Data Aida rce(s) Supporting Document(s) 4.160 0.358-3.740 THYROID STIMULATING HORM ONE eCW1 ([facility]) ID Date Data Source [id number] 03/12/2019 12:00:00 AM EST eCW1 ([facility]) Name Value Range Interpretation Code Description Data Aida rce(s) Supporting Document(s) Albumin/Creatinine [Mass Ratio] in Urine 28.9 MALB URINE SIEMENS eCW1 ([facility]) Microalbumin/Creatinine [Mass Ratio] in Urine 60.3 CREATININE, URINE eCW1 ([facility]) Microalbumin/Creatinine [Ratio] in Urine 47.9 0.0-30.0 AYDEE/CREAT RATIO eCW1 ([facility]) ID Date Data Source LIPID PANEL (CARDIAC RISK) 03/12/2019 12:00:00 AM EST eCW1 ( [facility]) Name Value Range Interpretation Code Description Data Aida rce(s) Supporting Document(s) Triglyceride [Mass/volume] in Serum or Plasma by calculation 163 <150 TRIGLYCERIDES LEVEL eCW1 ([facility]) Cholesterol in LDL [Mass/volume] in Serum or Plasma by calculation 101 <100 LDL CHOLESTEROL eCW1 ([facility]) Cholesterol [Moles/volume] in Serum or Plasma 167 <200 CHOLESTEROL LEVEL eCW1 ([facility]) 134 NON-HDL-C eCW1 ([facility]) Cholesterol in HDL [Moles/volume] in Serum or Plasma 33 >40 HDL CHOLESTEROL eCW1 ([facility]) 5.060 <5 CHOLESTEROL RISK RATIO eCW1 ([facility]) ID Date Data Source Comprehensive Metabolic Profile (CMP) 03/12/2019 12:00:00 AM EST eCW1 ([facility]) Name Value Range Interpretation Code Description Data Aida rce(s) Supporting Document(s) 29 7-18 BLOOD UREA NITROGEN eCW1 ([facility]) 104 70-100 GLUCOSE, FASTING eCW1 ([facility]) 1.21 0.55-1.30 CREATININE FOR GFR eCW1 ([facility]) 141 136-145 SODIUM LEVEL eCW1 ([facility]) 5.3 3.5-5.1 POTASSIUM SERUM eCW1 ([facility]) 49.0 >51 GLOMERULAR FILTRATION RATE eCW 1 ([facility]) 111 98-107 CHLORIDE LEVEL eCW1 ([facility]) 25 21-32 CARBON DIOXIDE LEVEL eCW1 ([facility]) 50 12-78 ALT/SGPT eCW1 ([facility]) 37 7-37 AST/SGOT eCW1 ([facility]) 8.6 8.5-10.1 CALCIUM LEVEL eCW1 ([facility]) 0.8 0.2-1.0 BILIRUBIN,TOTAL eCW1 ([facility]) 6.4 6.4-8.2 TOTAL PROTEIN eCW1 ([facility]) 3.3 3.2-5.2 ALBUMIN eCW1 ([facility]) 88 45-117 ALKALINE PHOSPHATASE eCW1 ([facility]) 1.06 1.00-1.93 ALBUMIN/GLOBULIN RATIO eCW1 ([facility]) ID Date Data Source CBC with Differential 03/12/2019 12:00:00 AM EST eCW1 ([facility]) Name Value Range Interpretation Code Description Data Aida rce(s) Supporting Document(s) 4.45 4.00-5.40 RED BLOOD COUNT eCW1 ([facility]) 5.7 4.0-10.0 WHITE BLOOD COUNT eCW1 ([facility]) 13.1 12.0-15.5 HEMOGLOBIN eCW1 ([facility]) 29.4 27.0-33.0 MEAN CORPUSCULAR HEMOGLOB IN eCW1 ([facility]) 41.4 36.0-47.0 HEMATOCRIT eCW1 ([facility]) 93.0 80.0-96.0 MEAN CORPUSCULAR VOLUME e CW1 ([facility]) 150 150-450 PLATELET COUNT, AUTOMATED eCW1 ([facility]) 66.9 36.0-66.0 NEUTROPHILS % eCW1 ([facility]) 12.1 11.5-14.5 RED CELL DISTRIBUTION WID TH eCW1 ([facility]) 31.6 32.0-36.5 MEAN CORPUSCULAR HGB CONC eCW1 ([facility]) 20.6 24.0-44.0 LYMPH % eCW1 ([facility]) 7.4 0.0-5.0 MONO % eCW1 ([facility]) 0.7 0.0-1.0 BASO % eCW1 ([facility]) 4.2 0.0-3.0 EOS % eCW1 ([facility]) 0.2 0.0-0.5 EOS # eCW1 ([facility]) 3.8 1.5-8.5 NEUTROPHILS # eCW1 ([facility]) 1.2 1.5-5.0 LYMPH # eCW1 ([facility]) 0.4 0.0-0.8 MONO # eCW1 ([facility]) 0.0 0.0-0.2 BASO # eCW1 ([facility]) Procedure Social History Code Duration Value Status Description Data Source(s ) Smoking 03/09/2020 12:00:00 AM EST Former Smoker completed Former Smoker eCW1 ([facility]) Smoking 03/09/2020 12:00:00 AM EST Former Smoker completed Former Smoker eCW1 ([facility]) Smoking 02/26/2020 12:00:00 AM EST Former Smoker completed Former Smoker eCW1 ([facility]) Smoking 02/26/2020 12:00:00 AM EST Former Smoker completed Former Smoker eCW1 ([facility]) Smoking 02/26/2020 12:00:00 AM EST Former Smoker completed Former Smoker eCW1 ([facility]) Smoking 02/26/2020 12:00:00 AM EST Former Smoker completed Former Smoker eCW1 ([facility]) Smoking 02/26/2020 12:00:00 AM EST Former Smoker completed Former Smoker eCW1 ([facility]) Smoking 02/26/2020 12:00:00 AM EST Former Smoker completed Former Smoker eCW1 ([facility]) Smoking 02/26/2020 12:00:00 AM EST Former Smoker completed Former Smoker eCW1 ([facility]) Smoking 08/25/2019 12:00:00 AM EDT Former Smoker completed Former Smoker eCW1 ([facility]) Smoking 08/25/2019 12:00:00 AM EDT Former Smoker completed Former Smoker eCW1 ([facility]) Smoking 08/25/2019 12:00:00 AM EDT Former Smoker completed Former Smoker eCW1 ([facility]) Smoking 08/25/2019 12:00:00 AM EDT Former Smoker completed Former Smoker eCW1 ([facility]) Smoking 08/25/2019 12:00:00 AM EDT Former Smoker completed Former Smoker eCW1 ([facility]) Smoking 08/25/2019 12:00:00 AM EDT Former Smoker completed Former Smoker eCW1 ([facility]) Smoking 08/25/2019 12:00:00 AM EDT Former Smoker completed Former Smoker eCW1 ([facility]) Smoking 08/25/2019 12:00:00 AM EDT Former Smoker completed Former Smoker eCW1 ([facility]) Smoking 07/27/2019 12:00:00 AM EDT Former Smoker completed Former Smoker eCW1 ([facility]) Smoking 06/16/2019 12:00:00 AM EDT Former Smoker completed Former Smoker eCW1 ([facility]) Smoking 06/16/2019 12:00:00 AM EDT Former Smoker completed Former Smoker eCW1 ([facility]) Smoking 06/16/2019 12:00:00 AM EDT Former Smoker completed Former Smoker eCW1 ([facility]) Vital Signs ID Date Data Source UNK Name Value Range Interpretation Code Description Data Source(s) Diastolic blood pressure 79 mm[Hg] 79 mm[Hg] eCW1 ([facility]) Systolic blood pressure 130 mm[Hg] 130 mm[Hg] e CW1 ([facility]) Body temperature 97.7 [degF] 97.7 [degF] eCW1 ( [facility]) Respiratory rate 18 /min 18 /min eCW1 ([facility]) Heart rate 60 /min 60 /min eCW1 ([facility]) Body mass index (BMI) [Ratio] 37.94 kg/m2 37.94 kg/m2 eCW1 ([facility]) Body height 65 [in_i] 65 [in_i] eCW1 ([facility]) Body weight 228 [lb_av] 228 [lb_av] eCW1 ([facility]) Diastolic blood pressure 62 mm[Hg] 62 mm[Hg] eCW1 ([facility]) Systolic blood pressure 126 mm[Hg] 126 mm[Hg] e CW1 ([facility]) Body temperature 98.5 [degF] 98.5 [degF] eCW1 ( [facility]) Respiratory rate 18 /min 18 /min eCW1 ([facility]) Heart rate 59 /min 59 /min eCW1 ([facility]) Body mass index (BMI) [Ratio] 37.27 kg/m2 37.27 kg/m2 eCW1 ([facility]) Body height 65 [in_i] 65 [in_i] eCW1 ([facility]) Body weight 224 [lb_av] 224 [lb_av] eCW1 ([facility]) Diastolic blood pressure mm[Hg] eCW1 ([facility]) Systolic blood pressure 122 mm[Hg] 122 mm[Hg] e CW1 ([facility]) Body temperature 97.4 [degF] 97.4 [degF] eCW1 ( [facility]) Respiratory rate 18 /min 18 /min eCW1 ([facility]) Heart rate 61 /min 61 /min eCW1 ([facility] Body mass index (BMI) [Ratio] 36.44 kg/m2 36.44 kg/m2 eCW1 ([facility]) Body height 65 [in_i] 65 [in_i] eCW[facility] Body weight 219 [lb_av] 219 [lb_av] eCW1 ([facility]) Diastolic blood pressure 74 mm[Hg] 74 mm[Hg] eCW1 ([facility]) Systolic blood pressure 129 mm[Hg] 129 mm[Hg] e CW1 ([facility]) Body temperature 98.3 [degF] 98.3 [degF] eCW1 ( [facility]) Respiratory rate 18 /min 18 /min eCW1 ([facility]) Heart rate 68 /min 68 /min eCW1 ([facility]) Body mass index (BMI) [Ratio] 36.27 kg/m2 36.27 kg/m2 eCW1 ([facility]) Body height 65 [in_i] 65 [in_i] eCW1 ([facility]) Body weight 218 [lb_av] 218 [lb_av] eCW1 ([facility]) Diastolic blood pressure 90 mm[Hg] 90 mm[Hg] eCW1 ([facility]) Systolic blood pressure 150 mm[Hg] 150 mm[Hg] e CW1 ([facility]) Body temperature 98.1 [degF] 98.1 [degF] eCW1 ( [facility]) Respiratory rate 18 /min 18 /min eCW1 ([facility]) Heart rate 76 /min 76 /min eCW1 ([facility]) Body mass index (BMI) [Ratio] 36.61 kg/m2 36.61 kg/m2 eCW1 ([facility]) Body height 65 [in_us] 65 [in_us] eCW1 ([facility]) Body weight Measured 220 [lb_av] 220 [lb_av] eC W1 ([facility]) Body mass index (BMI) [Ratio] 37.01 kg/m2 37.01 kg/m2 eCW1 ([facility]) Body height 65 [in_us] 65 [in_us] eCW1 ([facility]) Body weight Measured 222.4 [lb_av] 222.4 [lb_av ] eCW1 ([facility]) Diastolic blood pressure 85 mm[Hg] 85 mm[Hg] eCW1 ([facility]) Systolic blood pressure 150 mm[Hg] 150 mm[Hg] e CW1 ([facility]) Body temperature 96.8 [degF] 96.8 [degF] eCW1 ( [facility]) Respiratory rate 18 /min 18 /min eCW1 ([facility]) Heart rate 75 /min 75 /min eCW1 ([facility]) Diastolic blood pressure 72 mm[Hg] 72 mm[Hg] eCW1 ([facility]) Systolic blood pressure 146 mm[Hg] 146 mm[Hg] e CW1 ([facility]) Body temperature 98.8 [degF] 98.8 [degF] eCW1 ( [facility]) Respiratory rate 18 /min 18 /min eCW1 ([facility]) Heart rate 58 /min 58 /min eCW1 ([facility]) Body mass index (BMI) [Ratio] 37.27 kg/m2 37.27 kg/m2 eCW1 ([facility]) Body height 65 [in_us] 65 [in_us] eCW1 ([facility]) Body weight Measured 224 [lb_av] 224 [lb_av] eC W1 ([facility]) Diastolic blood pressure 53 mm[Hg] 53 mm[Hg] eCW1 ([facility]) Systolic blood pressure 99 mm[Hg] 99 mm[Hg] e CW1 ([facility]) Body temperature 97.1 [degF] 97.1 [degF] eCW1 ( [facility]) Respiratory rate 18 /min 18 /min eCW1 ([facility]) Heart rate 66 /min 66 /min eCW1 ([facility]) Body mass index (BMI) [Ratio] 36.47 kg/m2 36.47 kg/m2 eCW1 ([facility]) Body height 65 [in_us] 65 [in_us] eCW1 ([facility]) Body weight Measured 219.2 [lb_av] 219.2 [lb_av ] eCW1 ([facility]) Diastolic blood pressure 72 mm[Hg] 72 mm[Hg] eCW1 ([facility]) Systolic blood pressure 121 mm[Hg] 121 mm[Hg] e CW1 ([facility]) Body temperature 99.2 [degF] 99.2 [degF] eCW1 ( [facility]) Respiratory rate 18 /min 18 /min eCW1 ([facility]) Heart rate 70 /min 70 /min eCW1 ([facility]) Body mass index (BMI) [Ratio] 37.27 kg/m2 37.27 kg/m2 eCW1 ([facility]) Body height 65 [in_us] 65 [in_us] eCW1 ([facility]) Body weight Measured 224 [lb_av] 224 [lb_av] eC W1 ([facility]) Patient Treatment Plan of Care Planned Activity Planned Date Details Description Data Source (s) Amoxicillin 875 MG / Clavulanate 125 MG Oral Tablet 03/09/19 12:00:00 AM EST eCW1 ([facility]) Amoxicillin 875 MG / Clavulanate 125 MG Oral Tablet 03/09/19 12:00:00 AM EST eCW1 ([facility]) Warfarin Sodium 2.5 MG Oral Tablet 03/02/2020 12:00:00 AM EST eCW1 ([facility]) Warfarin Sodium 2.5 MG Oral Tablet 03/02/2020 12:00:00 AM EST eCW1 ([facility]) Warfarin Sodium 2.5 MG Oral Tablet 03/02/2020 12:00:00 AM EST eCW1 ([facility]) Warfarin Sodium 2.5 MG Oral Tablet 03/02/2020 12:00:00 AM EST eCW1 ([facility]) Warfarin Sodium 2.5 MG Oral Tablet 03/02/2020 12:00:00 AM EST eCW1 ([facility]) Warfarin Sodium 2.5 MG Oral Tablet 03/02/2020 12:00:00 AM EST eCW1 ([facility]) Warfarin Sodium 2.5 MG Oral Tablet 03/02/2020 12:00:00 AM EST eCW1 ([facility]) POLYETHYLENE GLYCOL 3350 142 MG/ML Oral Solution [Patti lax] 07/20/2019 12:00:00 AM EDT eCW1 ([facility]) POLYETHYLENE GLYCOL 3350 142 MG/ML Oral Solution [Patti lax] 07/20/2019 12:00:00 AM EDT eCW1 ([facility]) 1 ML Enoxaparin sodium 100 MG/ML Prefilled Syringe [Lo venox] 07/08/2019 12:00:00 AM EDT eCW1 ([facility]) 1 ML Enoxaparin sodium 100 MG/ML Prefilled Syringe [Lo venox] 07/08/2019 12:00:00 AM EDT eCW1 ([facility]) Warfarin Sodium 2.5 MG Oral Tablet [Coumadin] 04/17/2019 12:00:00 A M EST eCW1 ([facility]) Warfarin Sodium 2.5 MG Oral Tablet [Coumadin] 04/17/2019 12:00:00 A M EST eCW1 ([facility]) Coumadin 2.5 MG 04/17/2019 12:00:00 AM EST eCW1 ([facility]) Coumadin 2.5 MG 04/17/2019 12:00:00 AM EST eCW1 ([facility]) Coumadin 2.5 MG 04/17/2019 12:00:00 AM EST eCW1 ([facility]) Losartan Potassium 50 MG Oral Tablet 03/12/2019 12:00:00 AM EST eCW1 ([facility])
[2020-03-12 16:19] LABS: PLATELET COUNT, AUTOMATED 93 10^3/uL (150-450)
--- NOTE | 2020-03-12 16:45 | ECGEPIP ---
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
[2020-03-12 16:48] LABS: ALBUMIN 3.9 GM/DL (3.2-5.2); BILIRUBIN,TOTAL 0.4 MG/DL (0.2-1.0); CALCIUM LEVEL 9.8 MG/DL (8.5-10.1); CK-MB VALUE MASS 6.5 NG/ML (<3.6); CREATININE FOR GFR 2.11 MG/DL (0.55-1.30); GLOMERULAR FILTRATION RATE 25.7 (>51); MB/CK RELATIVE INDEX 2.78 (< OR =4); POTASSIUM SERUM 5.1 MEQ/L (3.5-5.1); TOTAL PROTEIN 7.4 GM/DL (6.4-8.2); TROPONIN I 0.03 NG/ML (< 0.10)
[2020-03-12] MEDS ORDERED: MIDAZOLAM INJ 2MG/2ML VIAL (J2250 PER 1MG) IV ONE (17:30)
[2020-03-12] MEDS ORDERED: MIDAZOLAM INJ 2MG/2ML VIAL (J2250 PER 1MG) IV STA (18:06)
[2020-03-12 19:30] VITALS: BP 180/91
--- NOTE | 2020-03-12 19:32 | REPVR ---
PROCEDURE INFORMATION: Exam: MR Head Without Contrast Exam date and time: 03/12/2020 6:56 PM Age: 59 years old Clinical indication: Weakness, extremity and other: Headache; Left; Additional info: Stroke rule out TECHNIQUE: Imaging protocol: MR of the head without contrast. COMPARISON: CT Head without contrast 03/12/2020 2:52 PM FINDINGS: Brain: There are T2/FLAIR hyperintensities in the periventricular region of bilateral hemispheres. Cerebral ventricles: Normal. No ventriculomegaly. Bones/joints: Unremarkable. Paranasal sinuses: Normal as visualized. No acute sinusitis. Mastoid air cells: Normal as visualized. No mastoid effusion. Orbital cavity: Unremarkable. Soft tissues: Unremarkable. IMPRESSION: No acute intracranial abnormality. Nonspecific T2/FLAIR hyperintensities in the periventricular region of bilateral hemispheres. Electronically signed by: Josse Kong On 03/12/2020 19:31:40 PM
== END 2020-03-12 20:15 | disposition home or self-care (01) ==
LOC: M ED 14:34
DX: M62.81 Muscle weakness (generalized) (principal); Z86.73 Personal history of transient ischemic attack (TIA), and cerebral infarction without residual deficits; Z79.01 Long term (current) use of anticoagulants
CPT/HCPCS: 70450; 70551; 80053; 82550; 82553; 84484; 85025; 85049; 85055; 85730; 93005; 93041; 94760; 96361; 96374; 99285; J2250

== ENCOUNTER → 2020-03-16 | Outpatient (CLI) | payer OTHER ==
[2020-03-16 13:00] LABS: INR 2.11; PROTHROMBIN TIME 24.1 SECONDS (12.5-14.3)
== END ==
LOC: M WUC 10:22
PROVIDERS: ATTEND Family Medicine
DX: Z51.81 Encounter for therapeutic drug level monitoring (principal); Z79.01 Long term (current) use of anticoagulants

== ENCOUNTER → 2020-03-30 | Outpatient (CLI) | payer OTHER ==
[2020-03-30 16:38] LABS: INR 3.24; PROTHROMBIN TIME 33.8 SECONDS (12.5-14.3)
== END ==
LOC: M WUC 15:08
PROVIDERS: ATTEND Family Medicine
DX: Z79.01 Long term (current) use of anticoagulants (principal)

== ENCOUNTER → 2020-04-19 | Outpatient (CLI) | payer OTHER ==
[2020-04-19 14:27] LABS: INR 1.74; PROTHROMBIN TIME 20.7 SECONDS (12.5-14.3)
== END ==
LOC: M WUC 10:51
PROVIDERS: ATTEND Family Medicine
DX: Z79.01 Long term (current) use of anticoagulants (principal)

== ENCOUNTER → 2020-04-20 | Outpatient (REF) | payer OTHER | LOC: M SFHCWAGY 13:23 | PROVIDERS: ATTEND Nurse Practitioner Family | DX: Z12.72 Encounter for screening for malignant neoplasm of vagina (principal) ==

== ENCOUNTER → 2020-04-20 | Outpatient (CLI) | payer OTHER ==
--- NOTE | 2020-04-20 12:49 | REPMRS ---
Patient History The patient states she had a clinical breast exam in April 2020. Patient has history of other cancer at age 58. Family history of colorectal cancer at age 50 or over in maternal uncle. 3D TOMOSYNTHESIS WAS PERFORMED. [facility] lifetime risk for [facility] cancer is 6.4%. Volpara breast density a. Digital Woman Screen Mammo: April 20, 2020 - Exam #: [id number] Bilateral CC and MLO view(s) were taken. Technologist: Renate Morgan, Technologist Prior study comparison: July 17, 2018, bilateral digital woman screen mammo performed at [facility]. October 12, 2016, digital woman screen mammo performed at [facility]. FINDINGS: There are scattered fibroglandular densities. There has been no change in the appearance of the mammogram from the prior studies. There is a mild amount of residual fibroglandular tissue which is fairly symmetric. There is no interval development of dominant mass, architectural distortion, or clustered microcalcification suggestive of malignancy. Assessment: BI-RADS/ACR category 1 mammogram. Negative Mammogram. Recommendation Routine screening mammogram in 1 year (for women over age 40). This mammogram was interpreted with the aid of an FDA-approved computer-aided dectection system. Electronically Signed By: Edward Cruz MD 04/20/20 0559
== END ==
LOC: M WHC 09:39
PROVIDERS: ATTEND Nurse Practitioner Family
DX: Z01.419 Encounter for gynecological examination (general) (routine) without abnormal findings (principal); Z12.31 Encounter for screening mammogram for malignant neoplasm of breast; Z85.89 Personal history of malignant neoplasm of other organs and systems
CPT/HCPCS: 77063; 77067; G0101; G0123

== ENCOUNTER → 2020-04-27 | Outpatient (CLI) | payer OTHER ==
[2020-04-27 13:12] LABS: INR 3.12; PROTHROMBIN TIME 32.8 SECONDS (12.5-14.3)
== END ==
LOC: M WUC 11:08
PROVIDERS: ATTEND Family Medicine
DX: Z79.01 Long term (current) use of anticoagulants (principal)

== ENCOUNTER → 2020-05-10 | Outpatient (CLI) | payer OTHER ==
[2020-05-10 13:24] LABS: INR 4.88; PROTHROMBIN TIME 46.7 SECONDS (12.5-14.3)
== END ==
LOC: M WUC 10:17
PROVIDERS: ATTEND Family Medicine
DX: Z79.01 Long term (current) use of anticoagulants (principal)

== ENCOUNTER → 2020-05-18 | Outpatient (CLI) | payer OTHER ==
[2020-05-18 15:03] LABS: INR 4.21; PROTHROMBIN TIME 41.5 SECONDS (12.5-14.3)
== END ==
LOC: M WUC 12:32
PROVIDERS: ATTEND Family Medicine
DX: Z79.01 Long term (current) use of anticoagulants (principal)

== ENCOUNTER → 2020-05-27 | Outpatient (CLI) | payer OTHER ==
[2020-05-27 16:14] LABS: INR 4.04; PROTHROMBIN TIME 40.2 SECONDS (12.5-14.3)
[2020-05-27 17:23] LABS: CREATININE FOR GFR 2.3 MG/DL (0.55-1.30); GLOMERULAR FILTRATION RATE 23.3 (>51); POTASSIUM SERUM 5.3 MEQ/L (3.5-5.1)
== END ==
LOC: M WUC 10:33
PROVIDERS: ATTEND Family Medicine
DX: Z79.01 Long term (current) use of anticoagulants (principal)

== ENCOUNTER → 2020-07-04 | Outpatient (CLI) | payer OTHER ==
[2020-07-04 12:24] LABS: INR 3.85; PROTHROMBIN TIME 38.7 SECONDS (12.5-14.3)
== END ==
LOC: M WUC 09:36
PROVIDERS: ATTEND Family Medicine
DX: Z79.01 Long term (current) use of anticoagulants (principal)

== ENCOUNTER → 2020-07-27 | Outpatient (CLI) | payer OTHER ==
[2020-07-27 16:52] LABS: INR 4.11; PROTHROMBIN TIME 40.8 SECONDS (12.5-14.3)
== END ==
LOC: M WUC 14:29
PROVIDERS: ATTEND Family Medicine
DX: Z79.01 Long term (current) use of anticoagulants (principal)

== ENCOUNTER → 2020-08-10 | Outpatient (CLI) | payer OTHER ==
[2020-08-10 16:19] LABS: INR 4.14
== END ==
LOC: M WUC 13:31
PROVIDERS: ATTEND Family Medicine
DX: Z79.01 Long term (current) use of anticoagulants (principal)

== ENCOUNTER → 2020-08-11 | Outpatient (REF) | payer OTHER ==
[2020-08-11 18:00] LABS: FREE T4 0.81 NG/DL (0.76-1.46); THYROID STIMULATING HORMONE 3.63 uIU/ML (0.358-3.740)
== END ==
LOC: M LAB REF 16:40
PROVIDERS: ATTEND Internal Medicine Nephrology
DX: E03.9 Hypothyroidism, unspecified (principal)

== ENCOUNTER → 2020-08-17 | Outpatient (CLI) | payer OTHER ==
[2020-08-17 19:47] LABS: INR 3.8; PROTHROMBIN TIME 38.3 SECONDS (12.5-14.3)
== END ==
LOC: M WUC 15:29
DX: Z79.01 Long term (current) use of anticoagulants (principal)

== ENCOUNTER → 2020-08-30 | Outpatient (CLI) | payer OTHER ==
[2020-08-30 17:34] LABS: INR 3.99; PROTHROMBIN TIME 39.8 SECONDS (12.5-14.3)
== END ==
LOC: M WUC 14:23
PROVIDERS: ATTEND Family Medicine
DX: Z51.81 Encounter for therapeutic drug level monitoring (principal); Z79.01 Long term (current) use of anticoagulants

== ENCOUNTER → 2020-09-05 | Outpatient (CLI) | payer OTHER ==
[2020-09-05 20:32] LABS: CALCIUM LEVEL 9.2 MG/DL (8.5-10.1); CREATININE FOR GFR 2.08 MG/DL (0.55-1.30); POTASSIUM SERUM 4.6 MEQ/L (3.5-5.1)
== END ==
LOC: M WUC 15:18
PROVIDERS: ATTEND Urology
DX: C64.2 Malignant neoplasm of left kidney, except renal pelvis (principal); Z90.5 Acquired absence of kidney; Z51.81 Encounter for therapeutic drug level monitoring; Z79.01 Long term (current) use of anticoagulants

== ENCOUNTER → 2020-09-05 | Outpatient (CLI) | payer OTHER ==
[2020-09-05 20:22] LABS: INR 1.76; PROTHROMBIN TIME 20.9 SECONDS (12.5-14.3)
== END ==
LOC: M WUC 15:06
PROVIDERS: ATTEND Family Medicine
DX: Z51.81 Encounter for therapeutic drug level monitoring (principal); Z79.01 Long term (current) use of anticoagulants

== ENCOUNTER → 2020-09-07 | Outpatient (CLI) | payer OTHER ==
--- NOTE | 2020-09-07 15:16 | REP ---
INDICATION: RENAL CELL CA / S/P NEPHROCOTOMY LT / LUNG NODULE. COMPARISON: Multiple the latest 02/17/2020 also without contrast. TECHNIQUE: Standard helical technique without intravenous or oral bowel preparatory contrast administration. FINDINGS: Limited evaluation of the solid intra-abdominal organs and gallbladder show no gross abnormalities or significant changes. Limited evaluation of the pancreas, adrenal glands, and right kidney show no gross abnormalities or significant changes from the prior exam. Limited evaluation of the abdominal aorta and para-aortic regions show no significant changes from the prior exam. There is no free fluid or free air. There is no mass or adenopathy. Limited evaluation of the bowel loops and the mesenteries show no gross abnormalities or significant changes. Bone window technique throughout the examination shows the osseous structures to be stable. Discogenic changes are seen at L5-S1. IMPRESSION: No evidence of acute disease or significant change compared to the prior exam with findings as described above. <Electronically signed by Angel Frederick > 09/07/20 [id number]
--- NOTE | 2020-09-07 15:33 | REP ---
INDICATION: RENAL CELL CA / S/P NEPHROCOTOMY LT / LUNG NODULE. COMPARISON: 06/11/2019 CT chest TECHNIQUE: No IV contrast could be given as the patient's creatinine was 2.08 today and she has a solitary kidney. Coronal and sagittal reconstructions were provided after scanning through the chest without FINDINGS: Lung meier are well inflated. 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 On images 45 and 46 there is a 5 mm noncalcified nodule in the medial segment right middle lobe which is present 15 months ago, image 63 so is a subpleural nodule medial basal segment right lower lobe about 3 mm, slightly larger and previous study there is a perifissural 4 mm nodule superior segment right lower lobe on image 32 the also increased from about 4 mm. And on image 50 there is another pleural based nodule in the right lower lobe about 3 mm, unchanged. There is a perifissural right lower lobe superior segment small nodule, stable. There are a few other scattered tiny peripheral subpleural nodules and another 4 mm nodule lateral basal segment left lower lobe which I cannot discern on previous exam. No pleural plaque, calcified plaque, effusion or pneumothorax. No mass. 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 The aorta is calcifications in the ascending arch portion without aneurysm no pathologic sized mediastinal, hilar, axillary or supraclavicular adenopathy. Bone windows show marginal osteophytes in the spine with spondylosis but no compression deformity or destructive lesion sternum, manubrium, medial clavicles, visualized scapulae, portion of left humeral head, ribs and the upper lumbar region included were all unremarkable. The upper abdomen shows some hepatomegaly and prior left nephrectomy. Please see the CT abdomen report this date for details about abdominal findings. IMPRESSION: 1. Multiple small peripheral pulmonary nodules seen bilaterally, most have increased by about a mm and 1 is new from last year. In the setting of renal malignancy, these should be viewed with some suspicion but they are too small to characterize. They are also too small for percutaneous biopsy. 2. No other significant or acute finding. There are changes from mitral valve surgery, hepatomegaly and a prior right nephrectomy. <Electronically signed by Robby Brown > 09/07/20 [id number]
== END ==
LOC: M RAD 13:18
PROVIDERS: ATTEND Urology
DX: R91.8 Other nonspecific abnormal finding of lung field (principal); C64.2 Malignant neoplasm of left kidney, except renal pelvis; Z90.5 Acquired absence of kidney

== ENCOUNTER → 2020-09-13 | Outpatient (REF) | payer OTHER ==
[2020-09-13 19:04] LABS: APPEARANCE, URINE HAZY (CLEAR); BACTERIA, URINE AUTO 1+ (NEGATIVE); BILIRUBIN, URINE AUTO NEGATIVE (NEGATIVE); BLOOD, URINE BLOOD NEGATIVE (NEGATIVE); COLOR, URINE YELLOW (YELLOW); GLUCOSE, URINE (UA) AUTO NEGATIVE (NEGATIVE); KETONE, URINE AUTO NEGATIVE (NEGATIVE); LEUKOCYTE ESTERASE, URINE AUTO NEGATIVE (NEGATIVE); NITRITE, URINE AUTO NEGATIVE (NEGATIVE); PROTEIN, URINE AUTO NEGATIVE (NEGATIVE); RBC, URINE AUTO 1 /HPF (0-3); SPECIFIC GRAVITY URINE AUTO 1.015 (1.002-1.035); SQUAMOUS EPITHELIAL CELL UR AU 2 /HPF (0-6); UROBILINOGEN, URINE AUTO 0.2 mg/dL (0.0-2.0); WBC, URINE AUTO 2 /HPF (0-3)
== END ==
LOC: M SMT 17:11
PROVIDERS: ATTEND Urology
DX: R35.0 Frequency of micturition (principal)

== ENCOUNTER → 2020-09-20 | Outpatient (CLI) | payer OTHER ==
[2020-09-20 15:36] LABS: INR 3.62; PROTHROMBIN TIME 36.3 SECONDS (12.7-14.5)
== END ==
LOC: M WUC 11:19
PROVIDERS: ATTEND Family Medicine
DX: Z79.01 Long term (current) use of anticoagulants (principal)

== ENCOUNTER → 2020-10-12 | Outpatient (CLI) | payer OTHER ==
[2020-10-12 17:15] LABS: INR 4.12; PROTHROMBIN TIME 40.1 SECONDS (12.7-14.5)
== END ==
LOC: M WUC 13:32
PROVIDERS: ATTEND Family Medicine
DX: Z79.01 Long term (current) use of anticoagulants (principal)

== ENCOUNTER → 2020-11-01 | Outpatient (CLI) | payer OTHER ==
[2020-11-01 20:18] LABS: INR 4.86; PROTHROMBIN TIME 45.4 SECONDS (12.7-14.5)
== END ==
LOC: M WUC 15:45
PROVIDERS: ATTEND Family Medicine
DX: Z51.81 Encounter for therapeutic drug level monitoring (principal); Z79.01 Long term (current) use of anticoagulants

== ENCOUNTER → 2020-11-16 | Outpatient (REF) | payer OTHER ==
[2020-11-16 16:05] LABS: INR 2.91; PROTHROMBIN TIME 30.7 SECONDS (12.7-14.5)
== END ==
LOC: M WUC 15:34
PROVIDERS: ATTEND Family Medicine
DX: Z79.01 Long term (current) use of anticoagulants (principal)

== ENCOUNTER → 2020-11-29 | Outpatient (REF) | payer OTHER | LOC: M SFHCPLAZ 16:42 | PROVIDERS: ATTEND Internal Medicine | DX: J06.9 Acute upper respiratory infection, unspecified (principal) | CPT/HCPCS: 87426; G0463; U0003 ==

== ENCOUNTER → 2020-12-08 | Outpatient (REF) | payer OTHER ==
[2020-12-08 12:30] LABS: INR 4.09; PROTHROMBIN TIME 39.8 SECONDS (12.7-14.5)
== END ==
LOC: M WUC 11:19
PROVIDERS: ATTEND Family Medicine
DX: Z79.01 Long term (current) use of anticoagulants (principal)

== ENCOUNTER → 2020-12-28 | Outpatient (CLI) | payer OTHER ==
[2020-12-28 12:49] LABS: INR 3.02; PROTHROMBIN TIME 31.6 SECONDS (12.7-14.5)
== END ==
LOC: M WUC 10:07
PROVIDERS: ATTEND Family Medicine
DX: Z79.01 Long term (current) use of anticoagulants (principal)

== ENCOUNTER → 2021-01-18 | Outpatient (CLI) | payer OTHER ==
[2021-01-18 16:33] LABS: INR 2.01; PROTHROMBIN TIME 23.2 SECONDS (12.7-14.5)
== END ==
LOC: M WUC 13:45
PROVIDERS: ATTEND Family Medicine
DX: Z79.01 Long term (current) use of anticoagulants (principal)

== ENCOUNTER → 2021-01-31 | Outpatient (CLI) | payer OTHER ==
[2021-01-31 16:23] LABS: INR 3.35; PROTHROMBIN TIME 34.2 SECONDS (12.7-14.5)
== END ==
LOC: M WUC 10:38
PROVIDERS: ATTEND Family Medicine
DX: Z51.81 Encounter for therapeutic drug level monitoring (principal); Z79.01 Long term (current) use of anticoagulants

== ENCOUNTER → 2021-03-03 | Outpatient (CLI) | payer OTHER ==
[~2021-03-03] MED LIST changes: +LOSA50TA28 PO; -LOSA50TA88 PO
[2021-03-03 16:21] LABS: INR 2.09; PROTHROMBIN TIME 23.9 SECONDS (12.7-14.5)
== END ==
LOC: M WUC 12:26
PROVIDERS: ATTEND Family Medicine
DX: Z51.81 Encounter for therapeutic drug level monitoring (principal); Z79.01 Long term (current) use of anticoagulants

== ENCOUNTER → 2021-03-15 | Outpatient (CLI) | payer OTHER ==
[2021-03-15 15:52] LABS: INR 3.41; PROTHROMBIN TIME 34.7 SECONDS (12.7-14.5)
== END ==
LOC: M WUC 10:36
PROVIDERS: ATTEND Family Medicine
DX: Z51.81 Encounter for therapeutic drug level monitoring (principal); Z79.01 Long term (current) use of anticoagulants

== ENCOUNTER → 2021-03-31 | Outpatient (CLI) | payer OTHER ==
[2021-03-31 16:07] LABS: BASO % 0.5 % (0.0-1.0); EOS # 0.2 10^3/uL (0.0-0.5); EOS % 2.3 % (0.0-3.0); HEMATOCRIT 40.9 % (36.0-47.0); HEMOGLOBIN 13.9 g/dl (12.0-15.5); LYMPH % 29.4 % (24.0-44.0); MEAN CORPUSCULAR HEMOGLOBIN 30.3 pg (27.0-33.0); MEAN CORPUSCULAR VOLUME 89.1 fl (80.0-96.0); MONO # 0.5 10^3/uL (0.0-0.8); NEUTROPHILS % 59.5 % (36.0-66.0); PLATELET COUNT, AUTOMATED 142 10^3/uL (150-450); RED BLOOD COUNT 4.59 10^6/uL (4.00-5.40); WHITE BLOOD COUNT 6.7 10^3/uL (4.0-10.0)
[2021-03-31 16:18] LABS: APPEARANCE, URINE CLOUDY (CLEAR); BACTERIA, URINE AUTO NEGATIVE (NEGATIVE); BILIRUBIN, URINE AUTO NEGATIVE (NEGATIVE); BLOOD, URINE BLOOD NEGATIVE (NEGATIVE); COLOR, URINE YELLOW (YELLOW); GLUCOSE, URINE (UA) AUTO NEGATIVE (NEGATIVE); KETONE, URINE AUTO NEGATIVE (NEGATIVE); LEUKOCYTE ESTERASE, URINE AUTO NEGATIVE (NEGATIVE); MUCUS, URINE SMALL (NEGATIVE); NITRITE, URINE AUTO NEGATIVE (NEGATIVE); PROTEIN, URINE AUTO 2+ mg/dL (NEGATIVE); RBC, URINE AUTO 1 /HPF (0-3); SPECIFIC GRAVITY URINE AUTO 1.016 (1.002-1.035); SQUAMOUS EPITHELIAL CELL UR AU 1 /HPF (0-6); UROBILINOGEN, URINE AUTO 0.2 mg/dL (0.0-2.0); WBC, URINE AUTO 1 /HPF (0-3)
[2021-03-31 16:23] LABS: INR 2.7
[2021-03-31 16:49] LABS: ALBUMIN 3.6 GM/DL (3.2-5.2); BILIRUBIN,TOTAL 0.6 MG/DL (0.2-1.0); CALCIUM LEVEL 9.4 MG/DL (8.5-10.1); CHOLESTEROL RISK RATIO 4.666 (<5); CREATININE FOR GFR 2.05 MG/DL (0.55-1.30); GLOMERULAR FILTRATION RATE 26.5 (>51); POTASSIUM SERUM 4.5 MEQ/L (3.5-5.1); THYROID STIMULATING HORMONE 4.71 uIU/ML (0.358-3.740); TOTAL 25(OH) VITAMIN D 26.7 NG/ML (30.0-100.0); TOTAL PROTEIN 6.9 GM/DL (6.4-8.2)
[2021-03-31 17:23] LABS: HEMOGLOBIN A1c 5.5 %
== END ==
LOC: M WUC 14:17
PROVIDERS: ATTEND Family Medicine
DX: R53.83 Other fatigue (principal); Z13.1 Encounter for screening for diabetes mellitus; Z13.220 Encounter for screening for lipoid disorders; R09.81 Nasal congestion; Z79.01 Long term (current) use of anticoagulants

== ENCOUNTER → 2021-04-24 | Outpatient (CLI) | payer OTHER ==
[2021-04-24 15:48] LABS: INR 2.83; PROTHROMBIN TIME 30.1 SECONDS (12.7-14.5)
== END ==
LOC: M WUC 13:31
PROVIDERS: ATTEND Family Medicine
DX: Z51.81 Encounter for therapeutic drug level monitoring (principal); Z79.01 Long term (current) use of anticoagulants

== ENCOUNTER → 2021-04-27 | Outpatient (CLI) | payer OTHER ==
[2021-04-27 13:25] LABS: INR 1.49; PROTHROMBIN TIME 18.4 SECONDS (12.7-14.5)
== END ==
LOC: M WUC 10:49
PROVIDERS: ATTEND Family Medicine
DX: Z51.81 Encounter for therapeutic drug level monitoring (principal); Z79.01 Long term (current) use of anticoagulants

== ENCOUNTER → 2021-05-04 | Outpatient (REF) | payer OTHER ==
[2021-05-04 12:50] LABS: INR 1.32; PROTHROMBIN TIME 16.8 SECONDS (12.7-14.5)
== END ==
LOC: M WUC 11:56
PROVIDERS: ATTEND Family Medicine
DX: Z79.01 Long term (current) use of anticoagulants (principal)

== ENCOUNTER → 2021-05-11 | Outpatient (CLI) | payer OTHER ==
[2021-05-11 13:10] LABS: INR 2.04; PROTHROMBIN TIME 23.5 SECONDS (12.7-14.5)
== END ==
LOC: M WUC 10:26
PROVIDERS: ATTEND Family Medicine
DX: Z51.81 Encounter for therapeutic drug level monitoring (principal); Z79.01 Long term (current) use of anticoagulants

== ENCOUNTER → 2021-05-18 | Outpatient (REF) | payer OTHER ==
[2021-05-18 13:06] LABS: INR 1.73; PROTHROMBIN TIME 20.7 SECONDS (12.7-14.5)
== END ==
LOC: M LABWUC 12:01
PROVIDERS: ATTEND Family Medicine
DX: Z79.01 Long term (current) use of anticoagulants (principal)

== ENCOUNTER → 2021-06-27 | Outpatient (CLI) | payer OTHER ==
[2021-06-27 16:39] LABS: INR 2.62; PROTHROMBIN TIME 28.4 SECONDS (12.7-14.5)
== END ==
LOC: M WUC 11:38
PROVIDERS: ATTEND Family Medicine
DX: Z79.01 Long term (current) use of anticoagulants (principal)

== ENCOUNTER → 2021-07-14 | Outpatient (CLI) | payer OTHER ==
[2021-07-14 16:27] LABS: INR 2.43; PROTHROMBIN TIME 26.8 SECONDS (12.7-14.5)
== END ==
LOC: M WUC 11:48
PROVIDERS: ATTEND Family Medicine
DX: Z79.01 Long term (current) use of anticoagulants (principal)

== ENCOUNTER → 2021-08-29 | Outpatient (CLI) | payer SELFPAY ==
[2021-08-29 16:04] LABS: INR 2.36; PROTHROMBIN TIME 26.2 SECONDS (12.7-14.5)
== END ==
LOC: M WUC 11:36
PROVIDERS: ATTEND Family Medicine
DX: Z79.01 Long term (current) use of anticoagulants (principal)

== ENCOUNTER → 2021-10-13 | Outpatient (REF) | payer OTHER ==
[~2021-10-13] MED LIST changes: +SIMV-253 PO; -ZOCO20TA PO
[2021-10-13 12:49] LABS: INR 2.45
== END ==
LOC: M LABWUC 11:53
PROVIDERS: ATTEND Family Medicine
DX: Z79.01 Long term (current) use of anticoagulants (principal)

== ENCOUNTER → 2021-11-23 | Outpatient (CLI) | payer OTHER, MEDICARE ==
[2021-11-23 11:55] LABS: INR 2.51; PROTHROMBIN TIME 27.5 SECONDS (12.5-14.5)
== END ==
LOC: M WUC 10:17
PROVIDERS: ATTEND Family Medicine
DX: Z79.01 Long term (current) use of anticoagulants (principal)

== ENCOUNTER 2021-12-04 10:24 | Observation (INO) | payer OTHER, MEDICARE ==
[~2021-12-04] VITALS: Ht 162.6 cm; Wt 103.5 kg
[2021-12-04 14:05] LABS: RSV AMPLIFICATION NEGATIVE (NEGATIVE)
[2021-12-04 15:46] LABS: BASO % 0.4 % (0.0-1.0); EOS # 0.2 10^3/uL (0.0-0.5); EOS % 2.6 % (0.0-3.0); HEMATOCRIT 39.2 % (36.0-47.0); HEMOGLOBIN 13.1 g/dl (12.0-15.5); LYMPH # 1.6 10^3/uL (1.5-5.0); LYMPH % 23.4 % (24.0-44.0); MEAN CORPUSCULAR HEMOGLOBIN 29.7 pg (27.0-33.0); MEAN CORPUSCULAR HGB CONC 33.4 g/dl (32.0-36.5); MEAN CORPUSCULAR VOLUME 88.9 fl (80.0-96.0); MONO # 0.6 10^3/uL (0.0-0.8); NEUTROPHILS # 4.5 10^3/uL (1.5-8.5); NEUTROPHILS % 64.3 % (36.0-66.0); PLATELET COUNT, AUTOMATED 127 10^3/uL (150-450); RED BLOOD COUNT 4.41 10^6/uL (4.00-5.40); WHITE BLOOD COUNT 6.9 10^3/uL (4.0-10.0)
[2021-12-04 16:00] LABS: INR 2.11
[2021-12-04] MEDS ORDERED: NITROGLYCERIN 2% OINT 1 GM *U/D* PKT TOP ONE (16:25)
[2021-12-04 16:29] LABS: CK-MB VALUE MASS 6.4 NG/ML (<3.6); MB/CK RELATIVE INDEX 1.4 (< OR =4)
[2021-12-04 16:33] LABS: ALBUMIN 3.5 GM/DL (3.2-5.2); BILIRUBIN,DIRECT 0.2 MG/DL (0.0-0.2); BILIRUBIN,TOTAL 0.7 MG/DL (0.2-1.0); CREATININE FOR GFR 2.01 MG/DL (0.55-1.30); POTASSIUM SERUM 4.5 MEQ/L (3.5-5.1); TOTAL PROTEIN 6.7 GM/DL (6.4-8.2)
[2021-12-04 18:18] LABS: CK-MB VALUE MASS 6.5 NG/ML (<3.6); MB/CK RELATIVE INDEX 1.43 (< OR =4)
[2021-12-04] MEDS ORDERED: FUROSEMIDE 40MG/4ML VIAL (J1940) IV ONE (18:35)
[2021-12-04] MEDS ORDERED: WARFARIN SOD 5MG TAB PO ONE (19:20)
[2021-12-04] MEDS ORDERED: METOPROLOL TART 25 MG TABLET PO ONE (19:20)
[2021-12-04] MEDS ORDERED: **hydrALAZINE** 50 MG TAB PO ONE (20:10)
[2021-12-04] MEDS ORDERED: CALC1CAP31 PO (20:27)
[2021-12-04] MEDS ORDERED: HYDR-3911 PO (20:27)
[2021-12-04] MEDS ORDERED: CETI-24 PO (20:27)
[2021-12-04] MEDS ORDERED: WARF-23 PO (20:27)
[2021-12-04] MEDS ORDERED: HOME MED LIST COMPLETE! XX SCH (20:30)
[2021-12-04] MEDS: DOXYCYCLINE HYCLATE 100MG TABLET PO SCH (23:27)
[2021-12-04] MEDS: BENZONATATE 100MG CAPSULE PO PRN (23:28)
[2021-12-05] MEDS: PANTOPRAZOLE 40MG TAB (PROTONIX) PO SCH ×4 (01:30→20:49)
[2021-12-05] MEDS: ACETAMINOPHEN TAB 650MG DOSE (2X325MG) PO PRN ×2 (01:32→11:38)
[2021-12-05] MEDS: guaiFENesin DM LIQ 10ML UD PO PRN (01:34)
[2021-12-05] MEDS: ALBUTEROL SULFATE 2.5 MG/0.5 ML INH NEB SOLN NEB SCH ×4 (02:04→21:04)
[2021-12-05] MEDS: BENZONATATE 100MG CAPSULE PO PRN (05:10)
[2021-12-05] MEDS: hydrALAZINE 20MG/ML 1ML VIAL (J0360 PER 20MG) IV PRN ×3 (05:16→16:28)
[2021-12-05 07:53] LABS: CALCIUM LEVEL 9.1 MG/DL (8.5-10.1); CREATININE FOR GFR 2.13 MG/DL (0.55-1.30); FREE T4 0.98 NG/DL (0.76-1.46); GLOMERULAR FILTRATION RATE 25.2 (>51)
[2021-12-05 08:00] LABS: HEMATOCRIT 39.9 % (36.0-47.0); HEMOGLOBIN 13.6 g/dl (12.0-15.5); MEAN CORPUSCULAR HGB CONC 34.1 g/dl (32.0-36.5); MEAN CORPUSCULAR VOLUME 87.9 fl (80.0-96.0); PLATELET COUNT, AUTOMATED 138 10^3/uL (150-450); RED BLOOD COUNT 4.54 10^6/uL (4.00-5.40)
[2021-12-05 08:16] LABS: INR 2.06; PROTHROMBIN TIME 23.6 SECONDS (12.5-14.5)
[2021-12-05] MEDS: DOXYCYCLINE HYCLATE 100MG TABLET PO SCH ×2 (08:43→20:49)
[2021-12-05] MEDS: busPIRone 5 MG TAB PO SCH ×2 (08:44→20:49)
[2021-12-05] MEDS: METOPROLOL TART 25 MG TABLET PO SCH ×2 (08:44→20:50)
[2021-12-05] MEDS: SIMVASTATIN 20 MG TAB PO SCH (08:44)
[2021-12-05] MEDS ORDERED: cefTRIAXone SOD 1 GM in D5W MINI-BAG PLUS 50 ML IV SCH (11:00)
[2021-12-05] MEDS: guaiFENesin ER 600 MG TAB PO SCH ×2 (16:15→20:48)
[2021-12-05] MEDS ORDERED: WARFARIN SOD 5MG TAB PO SCH (17:00)
[2021-12-05] MEDS ORDERED: WARFARIN SOD 2.5MG TAB PO ONE (17:00)
[2021-12-05] MEDS ORDERED: LABETALOL 100MG/20ML VIAL IV ONE (17:45)
[2021-12-05] MEDS: **hydrALAZINE HCL** 25 MG TAB PO SCH (20:49)
[2021-12-05] MEDS ORDERED: CALCITRIOL 0.25 MCG CAP (S0169) PO SCH (21:00)
[2021-12-05] MEDS ORDERED: hydrALAZINE 20MG/ML 1ML VIAL (J0360 PER 20MG) IV PRN (22:30)
[2021-12-06 00:40] VITALS: BP 159/67
[2021-12-06] MEDS: guaiFENesin DM LIQ 10ML UD PO PRN (01:07)
[2021-12-06] MEDS: ALBUTEROL SULFATE 2.5 MG/0.5 ML INH NEB SOLN NEB SCH ×2 (02:02→08:18)
[2021-12-06 04:00] VITALS: BP 141/65
[2021-12-06] MEDS: **hydrALAZINE HCL** 25 MG TAB PO SCH (04:28)
[2021-12-06 05:13] LABS: BASO % 0.2 % (0.0-1.0); EOS # 0.1 10^3/uL (0.0-0.5); EOS % 1.3 % (0.0-3.0); HEMATOCRIT 37.1 % (36.0-47.0); HEMOGLOBIN 12.4 g/dl (12.0-15.5); LYMPH # 1.4 10^3/uL (1.5-5.0); LYMPH % 23.1 % (24.0-44.0); MEAN CORPUSCULAR HEMOGLOBIN 30.2 pg (27.0-33.0); MEAN CORPUSCULAR HGB CONC 33.4 g/dl (32.0-36.5); MEAN CORPUSCULAR VOLUME 90.5 fl (80.0-96.0); MONO # 0.5 10^3/uL (0.0-0.8); MONO % 8.8 % (2.0-8.0); NEUTROPHILS # 4.1 10^3/uL (1.5-8.5); NEUTROPHILS % 66.4 % (36.0-66.0); PLATELET COUNT, AUTOMATED 111 10^3/uL (150-450); WHITE BLOOD COUNT 6.2 10^3/uL (4.0-10.0)
[2021-12-06 05:26] LABS: INR 2.37; PROTHROMBIN TIME 26.3 SECONDS (12.5-14.5)
[2021-12-06 05:41] LABS: CALCIUM LEVEL 9.1 MG/DL (8.5-10.1); CREATININE FOR GFR 2.38 MG/DL (0.55-1.30); GLOMERULAR FILTRATION RATE 22.2 (>51); MAGNESIUM LEVEL 2.1 MG/DL (1.8-2.4); POTASSIUM SERUM 3.9 MEQ/L (3.5-5.1)
[2021-12-06] MEDS ORDERED: MUCI600T31 PO (06:55)
[2021-12-06] MEDS ORDERED: OMEP40CA4 PO (06:55)
[2021-12-06] MEDS ORDERED: DOXY100T PO (06:55)
[2021-12-06] MEDS ORDERED: CEFD300CAP PO (06:55)
[2021-12-06] MEDS ORDERED: HYDR25TA PO (06:55)
[2021-12-06 08:59] VITALS: BP 136/90
[2021-12-06] MEDS: METOPROLOL TART 25 MG TABLET PO SCH (08:59)
[2021-12-06] MEDS: DOXYCYCLINE HYCLATE 100MG TABLET PO SCH (08:59)
[2021-12-06] MEDS: busPIRone 5 MG TAB PO SCH (08:59)
[2021-12-06] MEDS: PANTOPRAZOLE 40MG TAB (PROTONIX) PO SCH (08:59)
[2021-12-06] MEDS: guaiFENesin ER 600 MG TAB PO SCH (08:59)
[2021-12-06] MEDS: SIMVASTATIN 20 MG TAB PO SCH (08:59)
[2021-12-06] MEDS ORDERED: CEFDINIR 300 MG CAP (OMNICEF) PO SCH (09:00)
[2021-12-06 14:09] LABS: MYCOPLASMA PNEUMONIAE IgG 2425 U/mL (0-99); MYCOPLASMA PNEUMONIAE IgM <770 U/mL (0-769)
[2021-12-09] MEDS ORDERED: WARFARIN SOD 2.5MG TAB PO SCH (17:00)
== END 2021-12-06 10:54 | disposition home or self-care (01) ==
LOC: M ED 10:24 → M ED INP 10:25 → M PCU 12-06 00:33
PROVIDERS: ADMIT Internal Medicine; ATTEND Internal Medicine
DX: J20.9 Acute bronchitis, unspecified (principal); I16.0 Hypertensive urgency; R22.2 Localized swelling, mass and lump, trunk; Z98.890 Other specified postprocedural states; Z90.5 Acquired absence of kidney; R91.8 Other nonspecific abnormal finding of lung field; R30.0 Dysuria; R74.8 Abnormal levels of other serum enzymes; M79.89 Other specified soft tissue disorders; R05.8 Other specified cough; N18.4 Chronic kidney disease, stage 4 (severe); K92.1 Melena; D69.6 Thrombocytopenia, unspecified; F41.9 Anxiety disorder, unspecified; I35.8 Other nonrheumatic aortic valve disorders; I35.0 Nonrheumatic aortic (valve) stenosis; R94.6 Abnormal results of thyroid function studies; E21.1 Secondary hyperparathyroidism, not elsewhere classified; I12.9 Hypertensive chronic kidney disease with stage 1 through stage 4 chronic kidney disease, or unspecified chronic kidney disease; R79.1 Abnormal coagulation profile; Z85.528 Personal history of other malignant neoplasm of kidney; Z86.73 Personal history of transient ischemic attack (TIA), and cerebral infarction without residual deficits; Z95.2 Presence of prosthetic heart valve; Z87.891 Personal history of nicotine dependence; Z79.899 Other long term (current) drug therapy; Z79.01 Long term (current) use of anticoagulants; Z79.2 Long term (current) use of antibiotics
CPT/HCPCS: 36415; 71046; 71250; 80048; 80076; 81000; 81015; 82550; 82553; 83735; 83880; 84145; 84439; 84443; 84484; 85025; 85027; 85610; 85730; 86171; 86738; 87070; 87086; 87205; 87486; 87581; 87631; 87633; 87798; 92526; 92610; 93005; 93041; 93306; 93970; 94640; 94760; 96374; 96375; 96376; 99285; J0360; J0696; J1940

== ENCOUNTER → 2022-03-26 | Outpatient (CLI) | payer OTHER ==
[~2022-03-26] MED LIST changes: +CALC1CAP31 PO; +CEFD300CAP PO; +CETI-24 PO; +DOXY100T PO; +HYDR-3911 PO; +HYDR25TA PO; +MUCI600T31 PO; +OMEP40CA4 PO; +WARF-23 PO
== END ==
LOC: M PLARAD 10:12
PROVIDERS: ATTEND Specialist
DX: C64.2 Malignant neoplasm of left kidney, except renal pelvis (principal); R91.8 Other nonspecific abnormal finding of lung field
CPT/HCPCS: 78815; A9552

== ENCOUNTER → 2022-04-05 | Outpatient (CLI) | payer OTHER ==
[2022-04-05 12:22] LABS: INR 3.53; PROTHROMBIN TIME 35.9 SECONDS (12.5-14.5)
== END ==
LOC: M WUC 10:40
PROVIDERS: ATTEND Family Medicine
DX: Z79.01 Long term (current) use of anticoagulants (principal); Z95.2 Presence of prosthetic heart valve

== ENCOUNTER → 2022-05-03 | Outpatient (CLI) | payer OTHER ==
[2022-05-03 12:51] LABS: BASO % 0.3 % (0.0-1.0); EOS # 0.1 10^3/uL (0.0-0.5); HEMATOCRIT 39.9 % (36.0-47.0); HEMOGLOBIN 13.1 g/dl (12.0-15.5); LYMPH # 0.9 10^3/uL (1.5-5.0); LYMPH % 15.1 % (24.0-44.0); MEAN CORPUSCULAR HEMOGLOBIN 29.8 pg (27.0-33.0); MEAN CORPUSCULAR HGB CONC 32.8 g/dl (32.0-36.5); MEAN CORPUSCULAR VOLUME 90.7 fl (80.0-96.0); MONO # 0.4 10^3/uL (0.0-0.8); MONO % 5.9 % (2.0-8.0); NEUTROPHILS # 4.7 10^3/uL (1.5-8.5); NEUTROPHILS % 77.4 % (36.0-66.0); PLATELET COUNT, AUTOMATED 114 10^3/uL (150-450); WHITE BLOOD COUNT 6.1 10^3/uL (4.0-10.0)
[2022-05-03 12:54] LABS: ALBUMIN 3.4 G/DL (3.2-5.2); BILIRUBIN,TOTAL 0.6 MG/DL (0.3-1.2); CALCIUM LEVEL 9.3 MG/DL (8.5-10.1); CREATININE FOR GFR 2.02 MG/DL (0.55-1.30); GLOMERULAR FILTRATION RATE 26.8 (>51); INR 2.99; POTASSIUM SERUM 4.9 MMOL/L (3.5-5.1); PROTHROMBIN TIME 31.5 SECONDS (12.5-14.5); TOTAL PROTEIN 6.2 G/DL (5.7-8.2)
[2022-05-03 12:56] LABS: PARTIAL THROMBOPLASTIN TIME 106.8 SECONDS (24.8-34.2)
== END ==
LOC: M WUC 09:32
PROVIDERS: ATTEND Specialist
DX: C64.1 Malignant neoplasm of right kidney, except renal pelvis (principal)

== ENCOUNTER → 2022-05-25 | Outpatient (CLI) | payer OTHER ==
[2022-05-25 12:47] LABS: BASO % 0.6 % (0.0-1.0); EOS # 0.1 10^3/uL (0.0-0.5); EOS % 2.1 % (0.0-3.0); HEMATOCRIT 41.4 % (36.0-47.0); HEMOGLOBIN 13.5 g/dl (12.0-15.5); LYMPH # 1.7 10^3/uL (1.5-5.0); LYMPH % 24.6 % (24.0-44.0); MEAN CORPUSCULAR HEMOGLOBIN 29.7 pg (27.0-33.0); MEAN CORPUSCULAR HGB CONC 32.6 g/dl (32.0-36.5); MEAN CORPUSCULAR VOLUME 91.2 fl (80.0-96.0); MONO # 0.6 10^3/uL (0.0-0.8); MONO % 8.2 % (2.0-8.0); NEUTROPHILS # 4.4 10^3/uL (1.5-8.5); NEUTROPHILS % 64.2 % (36.0-66.0); PLATELET COUNT, AUTOMATED 133 10^3/uL (150-450); RED BLOOD COUNT 4.54 10^6/uL (4.00-5.40); WHITE BLOOD COUNT 6.8 10^3/uL (4.0-10.0)
[2022-05-25 12:56] LABS: INR 2.57
[2022-05-25 12:58] LABS: PARTIAL THROMBOPLASTIN TIME 91.9 SECONDS (24.8-34.2)
[2022-05-25 13:08] LABS: ALBUMIN 3.6 G/DL (3.2-5.2); BILIRUBIN,TOTAL 0.6 MG/DL (0.3-1.2); CALCIUM LEVEL 9.8 MG/DL (8.5-10.1); CREATININE FOR GFR 2.17 MG/DL (0.55-1.30); GLOMERULAR FILTRATION RATE 24.7 (>51); POTASSIUM SERUM 4.9 MMOL/L (3.5-5.1); TOTAL PROTEIN 6.5 G/DL (5.7-8.2)
== END ==
LOC: M WUC 09:01
PROVIDERS: ATTEND Specialist
DX: C64.9 Malignant neoplasm of unspecified kidney, except renal pelvis (principal)

== ENCOUNTER → 2022-06-11 | Outpatient (CLI) | payer OTHER ==
[~2022-06-11] MED LIST changes: +HYDR-3910; +LIDO5DIS41 TD; +METO1TAB87; +VALI2TAB PO
== END ==
LOC: M WUC 09:52
PROVIDERS: ATTEND Family Medicine
DX: Z53.9 Procedure and treatment not carried out, unspecified reason (principal)

== ENCOUNTER 2022-06-14 15:12 | Emergency (ER) | payer OTHER ==
[~2022-06-14] VITALS: Ht 162.6 cm; Wt 108.3 kg
[~2022-06-14 15:12] MED LIST changes: -HYDR-3910; -LIDO5DIS41 TD; -METO1TAB87; -VALI2TAB PO
[2022-06-14] MEDS ORDERED: METO1TAB87 (15:26)
[2022-06-14] MEDS ORDERED: HYDR-3910 (15:26)
[2022-06-14] MEDS ORDERED: ACETAMINOPHEN 325 MG TAB PO ONE (15:30)
[2022-06-14 16:22] LABS: BASO % 0.4 % (0.0-1.0); EOS # 0.1 10^3/uL (0.0-0.5); EOS % 1.3 % (0.0-3.0); HEMATOCRIT 40.1 % (36.0-47.0); HEMOGLOBIN 13.3 g/dl (12.0-15.5); LYMPH # 1.4 10^3/uL (1.5-5.0); LYMPH % 18.3 % (24.0-44.0); MEAN CORPUSCULAR HEMOGLOBIN 29.6 pg (27.0-33.0); MEAN CORPUSCULAR HGB CONC 33.2 g/dl (32.0-36.5); MEAN CORPUSCULAR VOLUME 89.3 fl (80.0-96.0); MONO # 0.6 10^3/uL (0.0-0.8); MONO % 7.7 % (2.0-8.0); NEUTROPHILS # 5.4 10^3/uL (1.5-8.5); PLATELET COUNT, AUTOMATED 131 10^3/uL (150-450); RED BLOOD COUNT 4.49 10^6/uL (4.00-5.40); WHITE BLOOD COUNT 7.5 10^3/uL (4.0-10.0)
[2022-06-14 16:34] LABS: INR 3.44; PROTHROMBIN TIME 35.2 SECONDS (12.5-14.5)
[2022-06-14] MEDS ORDERED: ONDANSETRON 4MG 2ML VIAL IV ONE (16:50)
[2022-06-14] MEDS ORDERED: MORPHINE 4 MG/ML 1ML VIAL IV PRN (16:50)
[2022-06-14 17:00] VITALS: BP 156/101
[2022-06-14 17:04] LABS: ALBUMIN 3.8 G/DL (3.2-5.2); BILIRUBIN,DIRECT 0.1 MG/DL (<0.4); BILIRUBIN,TOTAL 0.6 MG/DL (0.3-1.2); CALCIUM LEVEL 8.9 MG/DL (8.5-10.1); CREATININE FOR GFR 2.07 MG/DL (0.55-1.30); GLOMERULAR FILTRATION RATE 26.1 (>51); POTASSIUM SERUM 5.6 MMOL/L (3.5-5.1); TOTAL PROTEIN 6.8 G/DL (5.7-8.2)
[2022-06-14] MEDS ORDERED: LIDO5DIS41 TD (18:24)
[2022-06-14] MEDS ORDERED: LIDOCAINE 5% (LIDODERM) PATCH TD ONE (18:25)
[2022-06-14] MEDS ORDERED: VALI2TAB PO (18:25)
[2022-06-14] MEDS ORDERED: diazePAM 5MG TABLET PO ONE (18:25)
[2022-06-14] MEDS ORDERED: PATIROMER SORBITEX CALCIUM 8.4 GM POWDER PACKET (VELTASSA) PO ONE (18:35)
== END 2022-06-14 18:45 | disposition home or self-care (01) ==
LOC: M ED 15:12
DX: N18.9 Chronic kidney disease, unspecified (principal); E87.5 Hyperkalemia; M54.9 Dorsalgia, unspecified; I10 Essential (primary) hypertension; E78.5 Hyperlipidemia, unspecified; Z86.73 Personal history of transient ischemic attack (TIA), and cerebral infarction without residual deficits; Z87.891 Personal history of nicotine dependence; Z79.01 Long term (current) use of anticoagulants; Z79.899 Other long term (current) drug therapy
CPT/HCPCS: 74176; 80048; 80076; 81001; 83690; 85025; 85610; 93005; 96365; 96366; 96375; 99284; J2405

== ENCOUNTER → 2022-06-14 | Outpatient (REF) | payer OTHER ==
[2022-06-14 13:08] LABS: INR 3.64; PROTHROMBIN TIME 36.8 SECONDS (12.5-14.5)
== END ==
LOC: M SFHCPLAZ 12:04
PROVIDERS: ATTEND Specialist
DX: Z79.01 Long term (current) use of anticoagulants (principal)

== ENCOUNTER → 2022-07-18 | Outpatient (REF) | payer OTHER ==
[~2022-07-18] MED LIST changes: +HYDR-3910; +LIDO5DIS41 TD; +METO1TAB87; +VALI2TAB PO
[2022-07-18 13:02] LABS: INR 2.53; PROTHROMBIN TIME 27.7 SECONDS (12.5-14.5)
== END ==
LOC: M LABWUC 12:00
PROVIDERS: ATTEND Family Medicine
DX: Z79.01 Long term (current) use of anticoagulants (principal)

== ENCOUNTER → 2022-08-09 | Outpatient (CLI) | payer OTHER ==
[2022-08-09 17:37] LABS: INR 2.58; PROTHROMBIN TIME 28.1 SECONDS (12.5-14.5)
== END ==
LOC: M WUC 11:29
PROVIDERS: ATTEND Family Medicine
DX: Z79.01 Long term (current) use of anticoagulants (principal)

== ENCOUNTER → 2022-09-14 | Outpatient (REF) | payer OTHER ==
[2022-09-14 12:26] LABS: INR 3.19; PROTHROMBIN TIME 33.2 SECONDS (12.5-14.5)
== END ==
LOC: M LABWUC 11:04
PROVIDERS: ATTEND Family Medicine
DX: Z79.01 Long term (current) use of anticoagulants (principal)

== ENCOUNTER → 2022-10-11 | Outpatient (REF) | payer OTHER ==
[2022-10-11 18:09] LABS: INR 2.16; PROTHROMBIN TIME 23.5 SECONDS (12.5-14.5)
== END ==
LOC: M LABWUC 16:07
PROVIDERS: ATTEND Family Medicine
DX: Z79.01 Long term (current) use of anticoagulants (principal)

== ENCOUNTER 2022-10-21 17:34 | Emergency (ER) | payer OTHER ==
[2022-10-21 18:16] LABS: BASO % 0.2 % (0.0-1.0); EOS # 0.1 10^3/uL (0.0-0.5); EOS % 0.8 % (0.0-3.0); HEMATOCRIT 42.2 % (36.0-47.0); LYMPH % 11.9 % (24.0-44.0); MEAN CORPUSCULAR HEMOGLOBIN 29.1 pg (27.0-33.0); MEAN CORPUSCULAR HGB CONC 33.2 g/dl (32.0-36.5); MEAN CORPUSCULAR VOLUME 87.7 fl (80.0-96.0); MONO # 0.4 10^3/uL (0.0-0.8); MONO % 4.7 % (2.0-8.0); NEUTROPHILS # 6.9 10^3/uL (1.5-8.5); NEUTROPHILS % 82.2 % (36.0-66.0); PLATELET COUNT, AUTOMATED 108 10^3/uL (150-450); RED BLOOD COUNT 4.81 10^6/uL (4.00-5.40); WHITE BLOOD COUNT 8.5 10^3/uL (4.0-10.0)
[2022-10-21 18:46] LABS: ALBUMIN 3.9 G/DL (3.2-5.2); BILIRUBIN,DIRECT 0.2 MG/DL (<0.4); BILIRUBIN,TOTAL 0.7 MG/DL (0.3-1.2); CALCIUM LEVEL 9.4 MG/DL (8.3-10.6); CREATININE FOR GFR 2.35 MG/DL (0.55-1.30); GLOMERULAR FILTRATION RATE 22.5 (>45); POTASSIUM SERUM 4.8 MMOL/L (3.5-5.1)
[2022-10-21] MEDS ORDERED: NS 1,000 ML IV ONE (18:55)
[2022-10-21] MEDS ORDERED: DICY-61 PO (20:27)
[2022-10-21] MEDS ORDERED: DICYCLOMINE INJ 20MG/2ML IM ONE (20:30)
[2022-10-21] MEDS ORDERED: AZIT500T5 PO (20:35)
[2022-10-21 20:47] VITALS: BP 150/78; TEMP 97.2; O2SAT 100
== END 2022-10-21 21:14 | disposition home or self-care (01) ==
LOC: EDBD 17:34 → M ED 17:34
DX: A04.5 Campylobacter enteritis (principal); I11.9 Hypertensive heart disease without heart failure; I25.10 Atherosclerotic heart disease of native coronary artery without angina pectoris; Z86.73 Personal history of transient ischemic attack (TIA), and cerebral infarction without residual deficits; E78.5 Hyperlipidemia, unspecified; Z95.2 Presence of prosthetic heart valve; Z79.01 Long term (current) use of anticoagulants; Z79.899 Other long term (current) drug therapy
CPT/HCPCS: 74176; 80048; 80076; 83605; 83690; 85025; 87040; 87507; 93005; 96372; 99284; J0500

== ENCOUNTER → 2022-10-25 | Outpatient (CLI) | payer OTHER ==
[~2022-10-25] MED LIST changes: +AZIT500T5 PO; +DICY-61 PO
[2022-10-25 17:12] LABS: PROTHROMBIN TIME 51.9 SECONDS (12.5-14.5)
[2022-10-25 17:23] LABS: INR 5.94
== END ==
LOC: M WUC 11:37
PROVIDERS: ATTEND Family Medicine
DX: Z79.01 Long term (current) use of anticoagulants (principal)

== ENCOUNTER → 2022-10-31 | Outpatient (REF) | payer OTHER ==
[2022-10-31 12:46] LABS: INR 2.62; PROTHROMBIN TIME 27.4 SECONDS (12.5-14.5)
== END ==
LOC: M WUC 11:28
PROVIDERS: ATTEND Family Medicine
DX: Z79.01 Long term (current) use of anticoagulants (principal)

== ENCOUNTER → 2023-01-11 | Outpatient (CLI) | payer OTHER ==
[2023-01-11 17:48] LABS: INR 2.92; PROTHROMBIN TIME 29.4 SECONDS (12.5-14.5)
== END ==
LOC: M WUC 10:28
PROVIDERS: ATTEND Family Medicine
DX: Z79.01 Long term (current) use of anticoagulants (principal)

== ENCOUNTER → 2023-02-15 | Outpatient (REF) | payer OTHER ==
[2023-02-15 13:30] LABS: INR 4.04; PROTHROMBIN TIME 37.7 SECONDS (12.5-14.5)
== END ==
LOC: M SFHCLERA 12:37
PROVIDERS: ATTEND Family Medicine
DX: Z79.01 Long term (current) use of anticoagulants (principal)

== ENCOUNTER → 2023-02-21 | Outpatient (REF) | payer OTHER ==
[2023-02-21 14:30] LABS: INR 2.7; PROTHROMBIN TIME 27.7 SECONDS (12.5-14.5)
== END ==
LOC: M LAB REF 13:46
PROVIDERS: ATTEND Family Medicine
DX: Z79.01 Long term (current) use of anticoagulants (principal)

== ENCOUNTER → 2023-04-15 | Outpatient (REF) | payer OTHER ==
[~2023-04-15] MED LIST changes: -HYDR-3910; -HYDR-3911 PO; -HYDR25TA PO; +HYDR25TA87; +HYDR25TA88 PO; +HYDR50TA46 PO
[2023-04-15 12:52] LABS: INR 3.72; PROTHROMBIN TIME 35.5 SECONDS (12.5-14.5)
== END ==
LOC: M LABWUC 11:55
PROVIDERS: ATTEND Family Medicine
DX: Z79.01 Long term (current) use of anticoagulants (principal)

== ENCOUNTER → 2023-04-30 | Outpatient (REF) | payer OTHER ==
[2023-04-30 11:49] LABS: INR 2.2; PROTHROMBIN TIME 23.7 SECONDS (12.5-14.5)
== END ==
LOC: M LABWUC 11:17
PROVIDERS: ATTEND Family Medicine
DX: Z79.01 Long term (current) use of anticoagulants (principal)

== ENCOUNTER → 2023-06-13 | Outpatient (REF) | payer OTHER ==
[2023-06-13 11:59] LABS: INR 3.35; PROTHROMBIN TIME 32.7 SECONDS (12.5-14.5)
== END ==
LOC: M LABWUC 11:25
PROVIDERS: ATTEND Family Medicine
DX: Z79.01 Long term (current) use of anticoagulants (principal)

== ENCOUNTER → 2023-07-23 | Outpatient (REF) | payer OTHER ==
[2023-07-23 12:33] LABS: INR 3.48; PROTHROMBIN TIME 33.7 SECONDS (12.5-14.5)
== END ==
LOC: M LABWUC 12:11
PROVIDERS: ATTEND Family Medicine
DX: Z79.01 Long term (current) use of anticoagulants (principal)

== ENCOUNTER → 2023-09-05 | Outpatient (REF) | payer OTHER ==
[2023-09-05 16:47] LABS: APPEARANCE, URINE HAZY (CLEAR); BACTERIA, URINE AUTO NEGATIVE (NEGATIVE); BILIRUBIN, URINE AUTO NEGATIVE (NEGATIVE); BLOOD, URINE BLOOD 1+ (NEGATIVE); COLOR, URINE STRAW (YELLOW); GLUCOSE, URINE (UA) AUTO NEGATIVE (NEGATIVE); KETONE, URINE AUTO NEGATIVE (NEGATIVE); LEUKOCYTE ESTERASE, URINE AUTO NEGATIVE (NEGATIVE); MUCUS, URINE SMALL (NEGATIVE); NITRITE, URINE AUTO NEGATIVE (NEGATIVE); PROTEIN, URINE AUTO 2+ mg/dL (NEGATIVE); RBC, URINE AUTO 0 /HPF (0-3); SQUAMOUS EPITHELIAL CELL UR AU 1 /HPF (0-6); UROBILINOGEN, URINE AUTO 0.2 mg/dL (0.0-2.0); WBC, URINE AUTO 1 /HPF (0-3)
[2023-09-05 16:49] LABS: BASO % 0.6 % (0.0-1.0); EOS # 0.1 10^3/uL (0.0-0.5); EOS % 2.2 % (0.0-3.0); HEMATOCRIT 38.5 % (36.0-47.0); HEMOGLOBIN 12.8 g/dl (12.0-15.5); LYMPH # 1.5 10^3/uL (1.5-5.0); MEAN CORPUSCULAR HEMOGLOBIN 29.9 pg (27.0-33.0); MEAN CORPUSCULAR HGB CONC 33.2 g/dl (32.0-36.5); MONO # 0.4 10^3/uL (0.0-0.8); MONO % 7.7 % (2.0-8.0); NEUTROPHILS # 3.3 10^3/uL (1.5-8.5); NEUTROPHILS % 61.3 % (36.0-66.0); PLATELET COUNT, AUTOMATED 123 10^3/uL (150-450); RED BLOOD COUNT 4.28 10^6/uL (4.00-5.40); WHITE BLOOD COUNT 5.4 10^3/uL (4.0-10.0)
[2023-09-05 17:06] LABS: CREATININE, URINE 54.3 MG/DL; MAU/CREAT RATIO 591.1 MCG/MG (0.0-30.0)
[2023-09-05 17:08] LABS: INR 3.88; PROTHROMBIN TIME 36.6 SECONDS (12.5-14.5)
[2023-09-05 17:29] LABS: HEMOGLOBIN A1c 5.3 % (4.0-6.0)
[2023-09-05 18:23] LABS: ALBUMIN 3.6 G/DL (3.2-5.2); BILIRUBIN,TOTAL 0.5 MG/DL (0.3-1.2); CALCIUM LEVEL 9.4 MG/DL (8.3-10.6); CHOLESTEROL RISK RATIO 3.99 (<5); CREATININE FOR GFR 2.6 MG/DL (0.55-1.30); GLOMERULAR FILTRATION RATE 19.9 (>45); HDL CHOLESTEROL 34.8 MG/DL (>40); LDL CHOLESTEROL 51.6 MG/DL (<100); NON-HDL-C 104.2 MG/DL; POTASSIUM SERUM 5.2 MMOL/L (3.5-5.1); TOTAL PROTEIN 6.5 G/DL (5.7-8.2)
== END ==
LOC: M SFHCLERA 14:32
PROVIDERS: ATTEND Family Medicine
DX: Z00.00 Encounter for general adult medical examination without abnormal findings (principal); N18.9 Chronic kidney disease, unspecified; E78.5 Hyperlipidemia, unspecified; Z79.01 Long term (current) use of anticoagulants

== ENCOUNTER → 2023-09-17 | Outpatient (CLI) | payer OTHER | LOC: M CARPUL 08:54 | PROVIDERS: ATTEND Family Medicine | DX: I35.0 Nonrheumatic aortic (valve) stenosis (principal); R01.1 Cardiac murmur, unspecified ==

== ENCOUNTER → 2023-10-18 | Outpatient (REF) | payer OTHER | LOC: M SFHCLERA 11:01 | PROVIDERS: ATTEND Family Medicine | DX: Z79.01 Long term (current) use of anticoagulants (principal); Z53.9 Procedure and treatment not carried out, unspecified reason ==

== ENCOUNTER → 2023-11-06 | Outpatient (REF) | payer OTHER ==
[2023-11-06 11:27] LABS: INR 3.64; PROTHROMBIN TIME 34.9 SECONDS (12.5-14.5)
== END ==
LOC: M SFHCLERA 09:42
PROVIDERS: ATTEND Family Medicine
DX: Z79.01 Long term (current) use of anticoagulants (principal)

== ENCOUNTER → 2023-12-17 | Outpatient (REF) | payer OTHER ==
[2023-12-17 17:03] LABS: INR 3.15; PROTHROMBIN TIME 32.2 SECONDS (12.5-14.5)
== END ==
LOC: M SFHCLERA 16:45
PROVIDERS: ATTEND Family Medicine
DX: Z79.01 Long term (current) use of anticoagulants (principal)

== ENCOUNTER 2024-04-05 13:36 | Observation (INO) | payer MEDICARE, OTHER ==
[~2024-04-05] VITALS: Ht 162.6 cm; Wt 105.8 kg
[~2024-04-05 13:36] MED LIST changes: -HYDR25TA87; +HYDR25TA87 PO; -METO1TAB87
[2024-04-05] MEDS ORDERED: ISOVUE-370 76% 100ML VIAL As Ordered ONE (13:45)
[2024-04-05 14:09] LABS: BASO % 0.4 % (0.0-1.0); EOS # 0.1 10^3/uL (0.0-0.5); EOS % 1.5 % (0.0-3.0); HEMATOCRIT 39.4 % (36.0-47.0); LYMPH # 1.1 10^3/uL (1.5-5.0); LYMPH % 22.6 % (24.0-44.0); MONO # 0.4 10^3/uL (0.0-0.8); MONO % 7.9 % (2.0-8.0); NEUTROPHILS # 3.2 10^3/uL (1.5-8.5); NEUTROPHILS % 67.2 % (36.0-66.0); PLATELET COUNT, AUTOMATED 127 10^3/uL (150-450); RED BLOOD COUNT 4.33 10^6/uL (4.00-5.40); WHITE BLOOD COUNT 4.7 10^3/uL (4.0-10.0)
[2024-04-05 14:11] VITALS: BP 202/90; TEMP 96.8; O2SAT 100
[2024-04-05] MEDS: LABETALOL 100MG/20ML VIAL IV STA (14:14)
[2024-04-05 14:29] LABS: INR 3.91; PROTHROMBIN TIME 37.9 SECONDS (12.5-14.5)
[2024-04-05 14:48] LABS: PARTIAL THROMBOPLASTIN TIME 150.3 SECONDS (24.8-34.2)
[2024-04-05 15:25] LABS: CALCIUM LEVEL 9.3 MG/DL (8.3-10.6); CK-MB VALUE MASS 3.9 NG/ML (<3.6); CREATININE FOR GFR 2.13 MG/DL (0.55-1.30); GLOMERULAR FILTRATION RATE 25.1 (>45); MB/CK RELATIVE INDEX 2.48 (< OR =4); POTASSIUM SERUM 5.3 MMOL/L (3.5-5.1)
[2024-04-05] MEDS: LORazepam 2 MG/ML 1ML VIAL IV STA (15:54)
[2024-04-05 16:12] LABS: CK-MB VALUE MASS 3.7 NG/ML (<3.6); MB/CK RELATIVE INDEX 2.89 (< OR =4)
[2024-04-05] MEDS: DEXTROSE 50% 50ML SYRINGE IV STA (17:44)
[2024-04-05] MEDS: CALCIUM GLUCONATE 1,000 MG in DEXTROSE 5% (D5W) MINI-BAG PLU 100 ML IV ONE (17:44)
[2024-04-05] MEDS: HumuLIN R (REGULAR) INSULIN (NovoLIN R) **100U/ML** PER UNIT IV ONE (17:44)
[2024-04-05] MEDS: LABETALOL 100MG/20ML VIAL IV SCH (17:50)
[2024-04-05] MEDS ORDERED: HOME MED LIST COMPLETE! XX SCH (18:55)
[2024-04-06] MEDS ORDERED: LABETALOL 100MG/20ML VIAL IV ONE (06:00)
[2024-04-06] MEDS: SIMVASTATIN 20 MG TAB PO SCH (08:17)
[2024-04-06] MEDS: **hydrALAZINE HCL** 25 MG TAB PO SCH (08:17)
[2024-04-06 08:18] VITALS: BP 179/79
[2024-04-06] MEDS: METOPROLOL TART 25 MG TABLET PO SCH (08:18)
[2024-04-06] MEDS: ACETAMINOPHEN 325 MG TAB PO ONE (08:40)
[2024-04-06] MEDS: METAMUCIL (PSYLLIUM) PACKET PO SCH (09:00)
[2024-04-06 09:55] LABS: BASO % 0.6 % (0.0-1.0); EOS # 0.1 10^3/uL (0.0-0.5); EOS % 1.5 % (0.0-3.0); HEMATOCRIT 36.6 % (36.0-47.0); LYMPH % 18.1 % (24.0-44.0); MEAN CORPUSCULAR HEMOGLOBIN 29.8 pg (27.0-33.0); MEAN CORPUSCULAR HGB CONC 32.8 g/dl (32.0-36.5); MEAN CORPUSCULAR VOLUME 90.8 fl (80.0-96.0); MONO # 0.4 10^3/uL (0.0-0.8); MONO % 7.9 % (2.0-8.0); NEUTROPHILS # 3.8 10^3/uL (1.5-8.5); NEUTROPHILS % 71.5 % (36.0-66.0); PLATELET COUNT, AUTOMATED 102 10^3/uL (150-450); RED BLOOD COUNT 4.03 10^6/uL (4.00-5.40); WHITE BLOOD COUNT 5.4 10^3/uL (4.0-10.0)
[2024-04-06 10:15] LABS: CALCIUM LEVEL 8.9 MG/DL (8.3-10.6); CREATININE FOR GFR 2.33 MG/DL (0.55-1.30); GLOMERULAR FILTRATION RATE 22.6 (>45); POTASSIUM SERUM 4.5 MMOL/L (3.5-5.1)
[2024-04-06] MEDS ORDERED: METO50TA7 PO (12:03)
[2024-04-06] MEDS ORDERED: FURO40TA2 PO (12:03)
[2024-04-06 12:40] VITALS: BP 162/84; TEMP 98.1; O2SAT 99
[2024-04-06] MEDS ORDERED: WARFARIN SOD 5MG TAB PO SCH (17:00)
[2024-04-06] MEDS ORDERED: CETIRIZINE (ZyrTEC) 10 MG TAB PO SCH (21:00)
[2024-04-06] MEDS ORDERED: CALCITRIOL 0.25 MCG CAP (S0169) PO SCH (21:00)
[2024-04-11] MEDS ORDERED: WARFARIN SOD 2.5MG TAB PO SCH (17:00)
== END 2024-04-06 12:45 | disposition home or self-care (01) ==
LOC: M ED 13:36 → M ED INP 13:37
PROVIDERS: ADMIT Student in an Organized Health Care Education/Training Program; ATTEND Student in an Organized Health Care Education/Training Program
DX: G45.9 Transient cerebral ischemic attack, unspecified (principal); I16.0 Hypertensive urgency; Z86.73 Personal history of transient ischemic attack (TIA), and cerebral infarction without residual deficits; N18.4 Chronic kidney disease, stage 4 (severe); Z95.2 Presence of prosthetic heart valve; D69.6 Thrombocytopenia, unspecified; R79.89 Other specified abnormal findings of blood chemistry; F41.9 Anxiety disorder, unspecified; H54.8 Legal blindness, as defined in USA; H35.62 Retinal hemorrhage, left eye; I67.2 Cerebral atherosclerosis; I12.9 Hypertensive chronic kidney disease with stage 1 through stage 4 chronic kidney disease, or unspecified chronic kidney disease; E87.5 Hyperkalemia; D68.61 Antiphospholipid syndrome; Z79.899 Other long term (current) drug therapy; Z79.01 Long term (current) use of anticoagulants
CPT/HCPCS: 70450; 70544; 70551; 71045; 80047; 80048; 82550; 82553; 84484; 85025; 85610; 85730; 93005; 93041; 94760; 96374; 96375; 97161; 99285; G0378; J0612; J1815; J2060

== ENCOUNTER → 2024-04-20 | Outpatient (CLI) | payer MEDICARE ==
[~2024-04-20] MED LIST changes: +FURO40TA2 PO; +METO50TA7 PO
== END ==
LOC: M PLARAD 10:52
PROVIDERS: ATTEND Physician Assistant
DX: C64.2 Malignant neoplasm of left kidney, except renal pelvis (principal)
CPT/HCPCS: 78815; A9552

== ENCOUNTER → 2024-04-30 | Outpatient (REF) | payer MEDICARE ==
[~2024-04-30] MED LIST changes: +AMLO1TAB24; +CARV6.25; +OXYC1TAB23
[2024-04-30 16:26] LABS: ALBUMIN 3.5 G/DL (3.2-5.2); CALCIUM LEVEL 9.3 MG/DL (8.3-10.6); CREATININE FOR GFR 2.45 MG/DL (0.55-1.30); GLOMERULAR FILTRATION RATE 21.3 (>45); MAGNESIUM LEVEL 2.5 MG/DL (1.8-2.4); PHOSPHORUS LEVEL 3.8 MG/DL (2.4-5.1); POTASSIUM SERUM 4.3 MMOL/L (3.5-5.1)
== END ==
LOC: M LAB REF 13:39
PROVIDERS: ATTEND Internal Medicine Cardiovascular Disease
DX: I11.0 Hypertensive heart disease with heart failure (principal); I50.32 Chronic diastolic (congestive) heart failure; I49.1 Atrial premature depolarization

== ENCOUNTER → 2024-05-01 | Outpatient (CLI) | payer MEDICARE, OTHER ==
[~2024-05-01] MED LIST changes: +LENV10CA PO
== END ==
LOC: M EKG 13:30
PROVIDERS: ATTEND Internal Medicine Cardiovascular Disease
DX: I49.1 Atrial premature depolarization (principal); I45.2 Bifascicular block

== ENCOUNTER → 2024-07-01 | Outpatient (REF) | payer MEDICARE ==
[~2024-07-01] MED LIST changes: +LIDO1ADH93 TD; -LIDO5DIS41 TD; +SODI325T9
[2024-07-01 17:08] LABS: INR 2.2; PROTHROMBIN TIME 24.6 SECONDS (12.5-14.5)
== END ==
LOC: M LABWUC 16:49
PROVIDERS: ATTEND Physician Assistant
DX: Z95.2 Presence of prosthetic heart valve (principal); Z79.01 Long term (current) use of anticoagulants

== ENCOUNTER → 2024-08-12 | Outpatient (CLI) | payer MEDICARE ==
[2024-08-12 12:16] LABS: INR 6.88
== END ==
LOC: M WUC 08:30
PROVIDERS: ATTEND Registered Nurse
DX: Z79.01 Long term (current) use of anticoagulants (principal)

== ENCOUNTER → 2024-08-19 | Outpatient (REF) | payer MEDICARE ==
[2024-08-19 17:33] LABS: INR 4.8
== END ==
LOC: M LABWUC 17:05
PROVIDERS: ATTEND Physician Assistant
DX: Z79.01 Long term (current) use of anticoagulants (principal)

== ENCOUNTER → 2024-09-02 | Outpatient (REF) | payer MEDICARE ==
[2024-09-02 17:36] LABS: INR 4.77
== END ==
LOC: M LABWUC 17:16
PROVIDERS: ATTEND Physician Assistant
DX: Z79.01 Long term (current) use of anticoagulants (principal)

== ENCOUNTER → 2024-09-05 | Outpatient (CLI) | payer MEDICARE ==
[2024-09-05 12:16] LABS: INR 3.32
== END ==
LOC: M LAB 11:35
PROVIDERS: ATTEND Registered Nurse
DX: Z79.01 Long term (current) use of anticoagulants (principal)

== ENCOUNTER → 2024-09-10 | Outpatient (REF) | payer MEDICARE ==
[2024-09-10 12:18] LABS: INR 1.78
== END ==
LOC: M LABWUC 11:55
PROVIDERS: ATTEND Internal Medicine Cardiovascular Disease
DX: Z95.2 Presence of prosthetic heart valve (principal); Z79.01 Long term (current) use of anticoagulants

== ENCOUNTER → 2024-09-16 | Outpatient (REF) | payer MEDICARE ==
[2024-09-16 17:47] LABS: INR 2.25
== END ==
LOC: M LABWUC 17:25
PROVIDERS: ATTEND Physician Assistant
DX: Z79.01 Long term (current) use of anticoagulants (principal)

== ENCOUNTER → 2024-09-28 | Outpatient (CLI) | payer MEDICARE ==
[2024-09-28 12:11] LABS: INR 2.45
== END ==
LOC: M WUC 10:17
PROVIDERS: ATTEND Physician Assistant
DX: Z95.2 Presence of prosthetic heart valve (principal); Z79.01 Long term (current) use of anticoagulants

== ENCOUNTER → 2024-11-05 | Outpatient (CLI) | payer MEDICARE ==
[2024-11-05 12:29] LABS: INR 3.66
== END ==
LOC: M WUC 10:25
PROVIDERS: ATTEND Physician Assistant
DX: Z95.2 Presence of prosthetic heart valve (principal)

== ENCOUNTER → 2024-12-08 | Outpatient (CLI) | payer MEDICARE ==
[2024-12-08 12:08] LABS: INR 2.85
== END ==
LOC: M WUC 09:46
PROVIDERS: ATTEND Physician Assistant
DX: Z95.2 Presence of prosthetic heart valve (principal); Z79.01 Long term (current) use of anticoagulants

== ENCOUNTER → 2025-02-01 | Outpatient (CLI) | payer MEDICARE ==
[~2025-02-01] MED LIST changes: -LORA-753 PO; +LORA-973 PO
[2025-02-01 17:15] LABS: INR 2.46
== END ==
LOC: M WUC 13:40
PROVIDERS: ATTEND Physician Assistant
DX: Z95.2 Presence of prosthetic heart valve (principal); Z79.01 Long term (current) use of anticoagulants